=== PATIENT | male | born 1950 | race Caucasian/White ===

== ENCOUNTER 2021-01-08 09:01 | Outpatient (REF) | payer MEDICARE, BC, SELFPAY ==
--- NOTE | ~2021-01-08 | US_ITS ---
EXAMINATION: US RETROPERITONEAL LIMITED (RENAL ONLY). ULTRASOUND RENAL DOPPLER. CLINICAL INFORMATION: Hypertension. COMPARISON: None. TECHNIQUE: Routine grayscale imaging of kidneys is performed. FINDINGS: RIGHT KIDNEY: 11.9 x 4.9 x 4.6 cm (SAG x AP x TRV). The kidney is normal in size, contour, and echogenicity. Renal cortical thickness is normal. There is anechoic cyst midpole laterally measuring 1.0 x 0.8 x 0.7 cm. No additional cyst or solid mass seen. There is no echogenic stone or hydronephrosis. LEFT KIDNEY: 12.8 x 6.0 x 5.7 cm (SAG x AP x TRV). The kidney is normal in size, contour, and echogenicity. Renal cortical thickness is normal. No calculi or focal parenchymal lesions. No hydronephrosis. On renal Doppler exam, RIGHT KIDNEY: Peak systolic velocity proximal segment measures 182 cm/second, mid segment measures 72 cm/second and distal segment measures 73 cm/second. Renal aortic ratio cannot be calculated due to elevated peak systolic velocity in the aorta. Average peak resistive index measures 0.74. LEFT KIDNEY: Peak systolic velocity proximal segment measures 85 cm/second, mid segment measures 47 cm/second and distal segment measures 79 cm/second. Renal aortic ratio cannot be calculated. Average resistive index measures 0.70. Peak systolic velocity of the abdominal aorta measures 132 cm/second. Both renal veins are patent. US/US renal doppler IMPRESSION: Small cyst midpole right kidney. Otherwise both kidneys are unremarkable. Peak systolic velocity right kidney proximal segment is elevated measuring 182 cm/second. The resistive index is normal measuring 0.70. RAR could not be calculated. The findings are equivocal for right renal artery stenosis. Based on renal parameters, there is no left renal artery stenosis.
--- NOTE | ~2021-01-08 | US_ITS ---
EXAMINATION: US RETROPERITONEAL LIMITED (RENAL ONLY). ULTRASOUND RENAL DOPPLER. CLINICAL INFORMATION: Hypertension. COMPARISON: None. TECHNIQUE: Routine grayscale imaging of kidneys is performed. FINDINGS: RIGHT KIDNEY: 11.9 x 4.9 x 4.6 cm (SAG x AP x TRV). The kidney is normal in size, contour, and echogenicity. Renal cortical thickness is normal. There is anechoic cyst midpole laterally measuring 1.0 x 0.8 x 0.7 cm. No additional cyst or solid mass seen. There is no echogenic stone or hydronephrosis. LEFT KIDNEY: 12.8 x 6.0 x 5.7 cm (SAG x AP x TRV). The kidney is normal in size, contour, and echogenicity. Renal cortical thickness is normal. No calculi or focal parenchymal lesions. No hydronephrosis. On renal Doppler exam, RIGHT KIDNEY: Peak systolic velocity proximal segment measures 182 cm/second, mid segment measures 72 cm/second and distal segment measures 73 cm/second. Renal aortic ratio cannot be calculated due to elevated peak systolic velocity in the aorta. Average peak resistive index measures 0.74. LEFT KIDNEY: Peak systolic velocity proximal segment measures 85 cm/second, mid segment measures 47 cm/second and distal segment measures 79 cm/second. Renal aortic ratio cannot be calculated. Average resistive index measures 0.70. Peak systolic velocity of the abdominal aorta measures 132 cm/second. Both renal veins are patent. US/US renal BI IMPRESSION: Small cyst midpole right kidney. Otherwise both kidneys are unremarkable. Peak systolic velocity right kidney proximal segment is elevated measuring 182 cm/second. The resistive index is normal measuring 0.70. RAR could not be calculated. The findings are equivocal for right renal artery stenosis. Based on renal parameters, there is no left renal artery stenosis.
== END 2021-01-08 09:02 | disposition home or self-care (01) ==
LOC: HO.US 09:01
PROVIDERS: PCP Internal Medicine; Visit Provider Internal Medicine Nephrology
DX: I10 Essential (primary) hypertension (principal)
CPT/HCPCS: 76775; 93975

== ENCOUNTER 2021-04-16 07:58 | Day surgery (SDC) | payer MEDICARE, BC, SELFPAY ==
[2021-04-11 10:49] VITALS: BMI 29.7
--- NOTE | 2021-04-11 14:51 | MHC.SHP ---
Pre-Procedural Eval Section A The patient is an INPATIENT: No The History & Physical has been completed within 30 days and I have reviewed it.: Yes Section B Chief Complaint: Cataract Right Eye Allergies: Allergies Allergy/AdvReac Type Severity Reaction Status Date / Time amlodipine Allergy Intermediate tinnitis Verified 04/11/21 11:00 chlorthalidone AdvReac Intermediate dehydration Verified 04/11/21 11:00 erythromycin base AdvReac Intermediate Gastrointestinal Verified 04/11/21 11:00 Upset lisinopril AdvReac Intermediate Cough Verified 04/11/21 11:00 Plan Diagnosis/Plan: Unchanged I have reviewed the history and physical and performed a pertinent physical examination on my patient. No changes have occurred unless specified.
--- NOTE | 2021-04-13 09:23 | P.CONAN_ITS ---
Documented by User: Anushka Ansariney 04/13/21 09:27 HPI - Anesthesia Eval Consult details Narrative: 70yo M for Right Cataract Extraction IOL Insertion PCP cleared No prev cataract on record PMFSH Past Medical History Medical History Arthritis COVID-19 vaccine administered Depression Diabetes Elevated cholesterol GERD (gastroesophageal reflux disease) HTN (hypertension) Hx of aortic valve stenosis Sleep apnea Surgical History Surgical History H/O colonoscopy History of carpal tunnel release History of esophagogastroduodenoscopy (EGD) Social History Social History Are you a primary animal care worker to a significant other at home: No Do you presently have visiting nurse or other home services: No Alcohol intake: current Alcohol intake frequency: 0-2 drinks per day Alcohol type: hard liquor Tobacco use type: Cigar Smoked in Last 30 Days: Yes Use of substances other than those prescribed or required for medical reasons: No Have you been hit, kicked, punched, or otherwise hurt by someone within the past year? If so, by whom?: No Are you DNR?: No Advance Directives Information Provided: No Recently lost weight without trying: No Eating poorly because of decreased appetite: No Nutrition Risks: No Nutritional Risk Poor oral hygiene: Yes (upper partial/lower broken teeth) Meds Allergies Allergy/AdvReac Type Severity Reaction Status Date / Time amlodipine Allergy Intermediate tinnitis Verified 04/16/21 08:53 chlorthalidone AdvReac Intermediate dehydration Verified 04/16/21 08:53 erythromycin base AdvReac Intermediate Gastrointestinal Verified 04/16/21 08:53 Upset lisinopril AdvReac Intermediate Cough Verified 04/16/21 08:53 Home Medications Medication Instructions Recorded Confirmed Last Taken Type allopurinol 1 tab PO DAILY 04/11/21 04/11/21 Unknown History aspirin [Aspirin Low-Strength] 81 mg PO DAILY 04/11/21 04/11/21 Unknown History carvedilol 1 tab PO BID 04/11/21 04/11/21 04/16/21 07:00 History cetirizine 1 tab PO BID 04/11/21 04/11/21 Unknown History clonidine HCl 2 tab PO BID 04/11/21 04/11/2104/16/21 07:00 History fluticasone propionate 2 spray INTRANASAL DAILY 04/11/21 04/11/21 Unknown History hydralazine 75 mg PO TID 04/11/21 04/11/21 04/16/21 07:00 History losartan 1 tab PO DAILY 04/11/21 04/11/21 04/16/21 07:00 History metformin 1 tab PO BID 04/11/21 04/11/21 Unknown History omeprazole 20 mg PO BEDTIME 04/11/21 04/11/21 Unknown History pravastatin 1 tab PO DAILY 04/11/21 04/11/21 Unknown History tamsulosin 1 cap PO QPM 04/11/21 04/11/21 Unknown History thiamine mononitrate (vit B1) 1 tab PO DAILY 04/11/21 04/11/21 Unknown History [Vitamin B-1 (mononitrate)] Exam Exam Date and Time: April 13, [id number] Height,Weight and Vital Signs: Height 5 ft 10.5 in Weight 95.254 kg Assessment and Plan Assessment Anesthesia Assessment: Chart Reviewed Documented by User: Gume Bonilla 04/16/21 09:16 [facility] Past Medical History Medical History Arthritis COVID-19 vaccine administered Depression Diabetes Elevated cholesterol GERD (gastroesophageal reflux disease) HTN (hypertension) Hx of aortic valve stenosis Sleep apnea Surgical History Surgical History H/O colonoscopy History of carpal tunnel release History of esophagogastroduodenoscopy (EGD) Social History Social History Are you a primary animal care worker to a significant other at home: No Do you presently have visiting nurse or other home services: No Alcohol intake: current Alcohol intake frequency: 0-2 drinks per day Alcohol type: hard liquor Tobacco use type: Cigar Smoked in Last 30 Days: Yes Use of substances other than those prescribed or required for medical reasons: No Have you been hit, kicked, punched, or otherwise hurt by someone within the past year? If so, by whom?: No Are you DNR?: No Advance Directives Information Provided: No Recently lost weight without trying: No Eating poorly because of decreased appetite: No Nutrition Risks: No Nutritional Risk Poor oral hygiene: Yes (upper partial/lower broken teeth) Meds Allergies Allergy/AdvReac Type Severity Reaction Status Date / Time amlodipine Allergy Intermediate tinnitis Verified 04/16/21 08:53 chlorthalidone AdvReac Intermediate dehydration Verified 04/16/21 08:53 erythromycin base AdvReac Intermediate Gastrointestinal Verified 04/16/21 08:53 Upset lisinopril AdvReac Intermediate Cough Verified 04/16/21 08:53 Home Medications Medication Instructions Recorded Confirmed Last Taken Type allopurinol 1 tab PO DAILY 04/11/21 04/11/21 Unknown History aspirin [Aspirin Low-Strength] 81 mg PO DAILY 04/11/21 04/11/21 Unknown History carvedilol 1 tab PO BID 04/11/21 04/11/21 04/16/21 07:00 History cetirizine 1 tab PO BID 04/11/21 04/11/21 Unknown History clonidine HCl 2 tab PO BID 04/11/21 04/11/21 04/16/21 07:00 History fluticasone propionate 2 spray INTRANASAL DAILY 04/11/21 04/11/21 Unknown History hydralazine 75 mg PO TID 04/11/21 04/11/21 04/16/21 07:00 History losartan 1 tab PO DAILY 04/11/21 04/11/21 04/16/21 07:00 History metformin 1 tab PO BID 04/11/21 04/11/21 Unknown History omeprazole 20 mg PO BEDTIME 04/11/21 04/11/21 Unknown History pravastatin 1 tab PO DAILY 04/11/21 04/11/21 Unknown History tamsulosin 1 cap PO QPM 04/11/21 04/11/21 Unknown History thiamine mononitrate (vit B1) 1 tab PO DAILY 04/11/21 04/11/21 Unknown History [Vitamin B-1 (mononitrate)] Exam Airway Mallampati Class: III TM Dist: >3cm Neck ROM: Full Denture: Upper Loose/Missing/Broken Teeth: Yes (multiple broken teeth, very poor dentition) Heart: [id number] Lungs: cta b/l Assessment and Plan Assessment Anesthesia Assessment: Anesthesia Plan Discussed, PAT Visit and Chart Reviewed Final Anesthetic Review NPO: Yes ASA Class: III Final Preanesthetic Review: No Changes in Pt Med Stat, Meds/Allgs Chart Reviewed, Consent Obtained/Reviewed and Anes Risks/Benef Reviewed Patient Risk: Intermediate Procedure Risk: Low Assessment/Block/Sedation in SS: Assess/Block/Sedation-SS Anesthetic Plan Anesthetic Plan: MAC: and Agree w/ Assess. and Plan Disposition: Standard PACU
[2021-04-16 08:53] VITALS: BP 119/55; PULSE 45; RESP 18; TEMP 36.4; O2SAT 98
[2021-04-16 09:01] LABS: Glucose, Whole Blood 115 mg/dL (60-115)
[2021-04-16] MEDS: Lactated Ringers 500 ML 50 ML IV (09:07)
[2021-04-16] MEDS: Tetracaine HCl/PF 0.5% Oph Sol 4 ML DROPS 1 DROP EYE-RIGHT (09:08)
[2021-04-16] MEDS: Tropicamide 1 % Ophth Sol 3 ML BTL 1 DROP EYE-RIGHT ×3 (09:11→09:17)
[2021-04-16] MEDS: Phenylephrine HCL 2.5% Oph SoL 2 ML BOTTLE 1 DROP EYE-RIGHT ×3 (09:13→09:21)
--- NOTE | 2021-04-16 09:48 | HO.PNOPHT ---
Ophthalmology Procedure Procedure Date of Service: 04/16/21 Ophthalmology Viscoelastic: Healmonika Riverat Dual Pack Pro Ophthalmology Lenses: TECLUSI [id number] (19) Procedure Notes: PREOPERATIVE DIAGNOSIS: Decreased visual acuity right eye secondary to cataract POSTOPERATIVE DIAGNOSIS: Same PROCEDURE: Right cataract extraction with intraocular lens insertion SURGEON: Yfn Young M.D. ANESTHESIA: Topical/MAC ESTIMATED BLOOD LOSS: None COMPLICATIONS: None After obtaining informed consent, the patient was brought to the operating room suite and placed in the supine position. After adequate sedation per anesthesia, topical drops of Tetracaine were given to the right eye. The eye was then prepped and draped in the usual sterile fashion. The operating room microscope was then positioned over the operative eye and a lid speculum placed. A paracentesis was created. Viscoelastic was then instilled into the anterior chamber. A three plane incision was then created temporally, utilizing a 2.85 mm keratome. Capsulotomy forceps were then utilized to create a circular tear capsulotomy. Hydrodissection and hydrodelineation were carried out until adequate mobilization of the nucleus occurred. Phacoemulsification was then utilized to remove the dense central nucleus followed by removal of the cortical material utilizing the automated aspiration irrigation unit. Viscoelastic was instilled into the posterior capsular bag followed by placement of a posterior chamber intraocular lens without difficulty. The residual Viscoelastic was then removed utilizing the automated IA machine. The wound was checked and found to be watertight. The patient tolerated the procedure well and the lid speculum was removed. Intracameral injection of Vigamox 0.1 mL followed by a subtenon injection of Kenalog-40 0.2 mL were administered. The patient will be seen in the a.m.
[2021-04-16 10:10] VITALS: BP 175/69; PULSE 50; RESP 16; TEMP 36.1; O2SAT 97
== END 2021-04-16 10:18 | disposition home or self-care (01) ==
PROVIDERS: PCP Internal Medicine; Visit Provider Ophthalmology
PROC: (CPT 66985; principal; 2021-04-16 10:30)
DX: H25.11 Age-related nuclear cataract, right eye (principal); E11.9 Type 2 diabetes mellitus without complications; I10 Essential (primary) hypertension; Z79.84 Long term (current) use of oral hypoglycemic drugs; Z79.899 Other long term (current) drug therapy; Z88.8 Allergy status to other drugs, medicaments and biological substances
CPT/HCPCS: 66984; 82947; J2250; J3010; J3300; V2632

== ENCOUNTER 2021-04-30 09:54 | Day surgery (SDC) | payer MEDICARE, BC, SELFPAY ==
[2021-04-11 11:05] VITALS: BMI 29.7
--- NOTE | 2021-04-26 08:42 | MHC.SHP ---
Pre-Procedural Eval Section A Date of Service: 04/26/21 The patient is an INPATIENT: No The History & Physical has been completed within 30 days and I have reviewed it.: Yes Section B Chief Complaint: Cataract Left Eye Allergies: Allergies Allergy/AdvReac Type Severity Reaction Status Date / Time amlodipine Allergy Intermediate tinnitis Verified 04/16/21 08:53 chlorthalidone AdvReac Intermediate dehydration Verified 04/16/21 08:53 erythromycin base AdvReac Intermediate Gastrointestinal Verified 04/16/21 08:53 Upset lisinopril AdvReac Intermediate Cough Verified 04/16/21 08:53 Plan Diagnosis/Plan: Unchanged I have reviewed the history and physical and performed a pertinent physical examination on my patient. No changes have occurred unless specified.
[2021-04-30 11:56] VITALS: BP 176/71; PULSE 52; RESP 16; TEMP 36.6; O2SAT 97
--- NOTE | 2021-04-30 11:59 | HO.ANESPROP2 ---
[facility] Past Medical History Medical History Arthritis COVID-19 vaccine administered Depression Diabetes Elevated cholesterol GERD (gastroesophageal reflux disease) HTN (hypertension) Hx of aortic valve stenosis Sleep apnea Surgical History Surgical History H/O colonoscopy History of carpal tunnel release History of esophagogastroduodenoscopy (EGD) Social History Social History Are you a primary child care supervisor to a significant other at home: No Do you presently have visiting nurse or other home services: No Alcohol intake: current Alcohol intake frequency: 0-2 drinks per day Alcohol type: hard liquor Tobacco use type: Cigar Use of substances other than those prescribed or required for medical reasons: No Have you been hit, kicked, punched, or otherwise hurt by someone within the past year? If so, by whom?: No Are you DNR?: No Advance Directives Information Provided: No Recently lost weight without trying: No Eating poorly because of decreased appetite: No Nutrition Risks: No Nutritional Risk Poor oral hygiene: Yes (upper partial/lower broken teeth) Meds Allergies Allergy/AdvReac Type Severity Reaction Status Date / Time amlodipine Allergy Intermediate tinnitis Verified 04/16/21 08:53 chlorthalidone AdvReac Intermediate dehydration Verified 04/16/21 08:53 erythromycin base AdvReac Intermediate Gastrointestinal Verified 04/16/21 08:53 Upset lisinopril AdvReac Intermediate Cough Verified 04/16/21 08:53 Active Medications: Current Medications Generic Name Dose Route Start Last Admin Trade Name Freq PRN Reason Stop Dose Admin Povidone Iodine 1 appl 04/26/21 08:15 Povidone Iodine 5 % Ophth Soln 30 Ml Bottle EYE-LEFT PREOP PRN Pre-Op Surgical Implant Prophy Povidone Iodine 1 appl 04/30/21 11:31 Povidone Iodine 5 % Ophth Soln 30 Ml Bottle EYE-LEFT PREOP PRN Pre-Op Surgical Implant Prophy Home Medications Medication Instructions Recorded Confirmed Last Taken Type allopurinol 1 tab PO DAILY 04/11/21 04/11/21 Unknown History aspirin [Aspirin Low-Strength] 81 mg PO DAILY 04/11/21 04/11/21 Unknown History carvedilol 1 tab PO BID 04/11/21 04/11/21 04/30/21 History cetirizine 1 tab PO BID 04/11/21 04/11/21 Unknown History clonidine HCl 2 tab PO BID 04/11/21 04/11/21 04/30/21 History fluticasone propionate 2 spray INTRANASAL DAILY 04/11/21 04/11/21 Unknown History hydralazine 75 mg PO TID 04/11/21 04/11/21 04/30/21 History losartan 1 tab PO DAILY 04/11/21 04/11/21 04/30/21 History metformin 1 tab PO BID 04/11/21 04/11/21 Unknown History omeprazole 20 mg PO BEDTIME 04/11/21 04/11/21 Unknown History pravastatin 1 tab PO DAILY 04/11/21 04/11/21 Unknown History tamsulosin 1 cap PO QPM 04/11/21 04/11/21 Unknown History thiamine mononitrate (vit B1) 1 tab PO DAILY 04/11/21 04/11/21 Unknown History [Vitamin B-1 (mononitrate)] Exam Exam Date and Time: April 30, 2021 1159 Height,Weight and Vital Signs: Height 5 ft 10.5 in Weight 95.254 kg Last Vital Signs Temp 97.8 F 04/30/21 11:56 Pulse 52 04/30/21 11:56 Resp 16 04/30/21 11:56 BP 176/71 H 04/30/21 11:56 Pulse Ox 97 04/30/21 11:56 Airway Mallampati Class: II (Missing multiple teeth, numerous broken) TM Dist: >3cm Neck ROM: Full Heart: rrr Lungs: cta Assessment and Plan Assessment Anesthesia Assessment: Anesthesia Plan Discussed and Chart Reviewed Final Anesthetic Review NPO: Yes (Sip with meds) ASA Class: III Final Preanesthetic Review: No Changes in Pt Med Stat and Consent Obtained/Reviewed Patient Risk: Intermediate Procedure Risk: Intermediate Anesthetic Plan Anesthetic Plan: MAC: Disposition: Standard PACU
[2021-04-30] MEDS: Tetracaine HCl/PF 0.5% Oph Sol 4 ML DROPS 1 DROP EYE-LEFT (12:06)
[2021-04-30 12:07] LABS: Glucose, Whole Blood 110 mg/dL (60-115)
[2021-04-30] MEDS: Tropicamide 1 % Ophth Sol 3 ML BTL 1 DROP EYE-LEFT ×3 (12:07→12:23)
[2021-04-30] MEDS: Phenylephrine HCL 2.5% Oph SoL 2 ML BOTTLE 1 DROP EYE-LEFT ×3 (12:13→12:27)
--- NOTE | 2021-04-30 13:25 | HO.PNOPHT ---
Ophthalmology Procedure Procedure Date of Service: 04/30/21 Ophthalmology Viscoelastic: Healon Duet Dual Pack Pro Ophthalmology Lenses: TECLUIS [id number] (19) Procedure Notes: PREOPERATIVE DIAGNOSIS: Decreased visual acuity left eye secondary to cataract POSTOPERATIVE DIAGNOSIS: Same PROCEDURE: Left cataract extraction with intraocular lens insertion SURGEON: Yfn Young M.D. ANESTHESIA: Topical/MAC ESTIMATED BLOOD LOSS: None COMPLICATIONS: None After obtaining informed consent, the patient was brought to the operation room suite and placed in the supine position. After adequate sedation per anesthesia, topical drops of Tetracaine were given to the left eye. The eye was then prepped and draped in the usual sterile fashion. The operating room microscope was then positioned over the operative eye and a lid speculum placed. A paracentesis was created. Viscoelastic was then instilled into the anterior chamber. A three plane incision was then created temporally, utilizing a 2.85 mm keratome. Capsulotomy forceps were then utilized to create a circular tear capsulotomy. Hydrodissection and hydrodelineation were carried out until adequate mobilization of the nucleus occurred. Phacoemulsification was then utilized to remove the dense central nucleus followed by removal of the cortical material utilizing the automated aspiration irrigation unit. Viscoat elastic was instilled into the posterior capsular bag followed by placement of a posterior chamber intraocular lens without difficulty. The residual Viscoat elastic was then removed utilizing the automated IA machine. The wound was check and found to be watertight. The patient tolerated the procedure well and the lid speculum was removed. Intracameral injection of Vigamox 0.1 mL followed by a subtenon injection of Kenalog-40 0.2 mL were administered. The patient will be seen in the a.m.
[2021-04-30 13:51] VITALS: BP 174/69; PULSE 62; RESP 16; TEMP 36.2; O2SAT 97
== END 2021-04-30 14:05 | disposition home or self-care (01) ==
PROVIDERS: PCP Internal Medicine; Visit Provider Ophthalmology
PROC: (CPT 66985; principal; 2021-04-30 12:40)
DX: H25.12 Age-related nuclear cataract, left eye (principal); H52.4 Presbyopia; I10 Essential (primary) hypertension; G47.33 Obstructive sleep apnea (adult) (pediatric); E11.9 Type 2 diabetes mellitus without complications; Z79.84 Long term (current) use of oral hypoglycemic drugs; Z79.82 Long term (current) use of aspirin; Z99.89 Dependence on other enabling machines and devices; Z79.899 Other long term (current) drug therapy; Z88.8 Allergy status to other drugs, medicaments and biological substances
CPT/HCPCS: 66984; 82947; J2250; J3010; J3300; V2632

== ENCOUNTER → 2022-09-05 08:48 | Outpatient (BNVA) | payer MEDICARE, BC, SELFPAY ==
[2022-01-22 07:26] VITALS: BP 118/64; BP 152/70; BP 180/92; BMI 31.6
== END ==
PROVIDERS: PCP Internal Medicine; Referring Provider Internal Medicine; Visit Provider Physician Assistant
DX: R13.10 Dysphagia, unspecified (principal); G47.33 Obstructive sleep apnea (adult) (pediatric); Z79.01 Long term (current) use of anticoagulants; Z86.010 Personal history of colon polyps
CPT/HCPCS: 99202

== ENCOUNTER 2023-01-16 08:35 | Day surgery (SDC) | payer MEDICARE, BC, SELFPAY ==
[2022-01-22 07:26] VITALS: BP 118/64; BP 152/70; BP 180/92; BMI 31.6
--- NOTE | 2023-01-15 13:27 | HO.ANESPROP2 ---
Documented by User: Anushka Loredo NP 01/15/23 14:03 HPI - Anesthesia Eval Consult details Narrative: 72yo M for Upper Endoscopy and Colonoscopy Recent eval by cardiology. Some w/u pending, but ok to have colonoscopy and hold plavix. To remain on ASA PMFSH Active Problems Active Problems: All Active Problems (Updated 01/13/23 @ 11:37 by Edith Love, RN) History of colon polyps (Acute) care home current use of anticoagulant (Acute) Dysphagia (Acute) KATI treated with BiPAP (Acute) Past Medical History Medical History (Updated 01/13/23 @ 11:37 by Edith Love, RN) Arthritis CAD (coronary artery disease) Carotid stenosis CKD (chronic kidney disease), stage III COVID-19 vaccine administered Depression Diabetes Elevated cholesterol GERD (gastroesophageal reflux disease) HTN (hypertension) Hx of aortic valve stenosis On beta jay at home KATI treated with BiPAP Sleep apnea Surgical History Surgical History (Updated 01/13/23 @ 11:24 by Edith Love, LONNIE) H/O colonoscopy History of bilateral cataract extraction History of carpal tunnel release History of esophagogastroduodenoscopy (EGD) Hx of five vessel coronary artery bypass Status post cardiac revascularization with bypass aortocoronary anastomosis of five coronary vessels Social History Social History (Updated 09/05/22 @ 09:21 by Enedina Green PA-C) Household Members Other:: lives with Are you a primary healthcare business analyst to a significant other at home: No Do you presently have visiting nurse or other home services: No Alcohol intake: current Patient Tobacco Use Status: Former Tobacco user Tobacco use type: Cigar Current occupational status: retired Current occupation: [employer] Meds Allergies Allergy/AdvReac Type Severity Reaction Status Date / Time amlodipine Allergy Intermediate tinnitis Verified 01/13/23 11:03 chlorthalidone AdvReac Intermediate dehydration Verified 01/13/23 11:03 erythromycin base AdvReac Intermediate Gastrointestinal Verified 01/13/23 11:03 Upset lisinopril AdvReac Intermediate Cough Verified 01/13/23 11:03 Home Medications Medication Instructions Recorded Confirmed Last Taken Type allopurinol 300 mg tablet 1 tab PO DAILY 04/11/21 01/13/23 Unknown History aspirin 81 mg tablet,delayed 81 mg PO DAILY 04/11/21 04/11/21 01/14/23 History release cetirizine 10 mg tablet 1 tab PO BID 04/11/21 01/13/23 Unknown History fluticasone propionate 50 2 spray intranasal DAILY 04/11/21 01/13/23 Unknown History mcg/actuation nasal spray,suspension hydralazine 50 mg tablet 75 mg PO TID 04/11/21 01/13/23 04/30/21 History losartan 100 mg tablet 1 tab PO DAILY 04/11/21 01/13/23 04/30/21 History metformin 1,000 mg tablet 1 tab PO BID 04/11/21 01/13/23 Unknown History omeprazole 20 mg tablet,delayed 20 mg PO BEDTIME 04/11/21 01/13/23 Unknown History release pravastatin 80 mg tablet 1 tab PO DAILY 04/11/21 01/13/23 Unknown History tamsulosin 0.4 mg capsule 1 cap PO QPM 04/11/21 01/13/23 Unknown History thiamine mononitrate (vit B1) 100 1 tab PO DAILY 04/11/21 01/13/23 Unknown History mg tablet (Vitamin B-1 (mononitrate)) clopidogrel 75 mg tablet 75 mg PO DAILY 09/05/22 01/13/23 01/14/23 History glipizide 10 mg tablet, extended 10 mg PO DAILY 09/05/22 01/13/23 Unknown History release 24 hr metoprolol tartrate 25 mg tablet 25 mg PO BID 09/05/22 01/13/23 01/16/23 History triamcinolone acetonide 0.1 % 1 appl topical BID-TID 09/05/22 01/13/23 Unknown History topical cream Exam Exam Date and Time: January 15, 2023 1327 Narrative Narrative: EKG 01/2023 SA @ 62 ECHO 2020 LVEF 60-65% Mild Assessment and Plan Assessment Anesthesia Assessment: Chart Reviewed Documented by User: Glenn Theodore MD 01/16/23 17:54 HPI - Anesthesia Eval Consult details Narrative: 72yo M for Upper Endoscopy and Colonoscopy Recent eval by cardiology. Some w/u pending, but ok to have colonoscopy and hold plavix. To remain on ASA [facility] Past Medical History Medical History (Updated 01/13/23 @ 11:37 by Edith Love, RN) Arthritis CAD (coronary artery disease) Carotid stenosis CKD (chronic kidney disease), stage III COVID-19 vaccine administered Depression Diabetes Elevated cholesterol GERD (gastroesophageal reflux disease) HTN (hypertension) Hx of aortic valve stenosis On beta jay at home KATI treated with BiPAP Sleep apnea Functional capacity: independent ambulation Family History Family history of problems with anesthesia: No Surgical History Surgical History (Updated 01/13/23 @ 11:24 by Edith Love, RN) H/O colonoscopy History of bilateral cataract extraction History of carpal tunnel release History of esophagogastroduodenoscopy (EGD) Hx of five vessel coronary artery bypass Status post cardiac revascularization with bypass aortocoronary anastomosis of five coronary vessels History of Problems with Anesthesia: No Social History Social History (Updated 09/05/22 @ 09:21 by Enedina Green PA-C) Household Members Other:: lives with Are you a primary healthcare business analyst to a significant other at home: No Do you presently have visiting nurse or other home services: No Alcohol intake: current Patient Tobacco Use Status: Former Tobacco user Tobacco use type: Cigar Current occupational status: retired Current occupation: [employer] Allergies Allergy/AdvReac Type Severity Reaction Status Date / Time amlodipine Allergy Intermediate tinnitis Verified 01/13/23 11:03 chlorthalidone AdvReac Intermediate dehydration Verified 01/13/23 11:03 erythromycin base AdvReac Intermediate Gastrointestinal Verified 01/13/23 11:03 Upset lisinopril AdvReac Intermediate Cough Verified 01/13/23 11:03 Home Medications Medication Instructions Recorded Confirmed Last Taken Type allopurinol 300 mg tablet 1 tab PO DAILY 04/11/21 01/13/23 Unknown History aspirin 81 mg tablet,delayed 81 mg PO DAILY 04/11/21 04/11/21 01/14/23 History release cetirizine 10 mg tablet 1 tab PO BID 04/11/21 01/13/23 Unknown History fluticasone propionate 50 2 spray intranasal DAILY 04/11/21 01/13/23 Unknown History mcg/actuation nasal spray,suspension hydralazine 50 mg tablet 75 mg PO TID 04/11/21 01/13/23 04/30/21 History losartan 100 mg tablet 1 tab PO DAILY 04/11/21 01/13/23 04/30/21 History metformin 1,000 mg tablet 1 tab PO BID 04/11/21 01/13/23 Unknown History omeprazole 20 mg tablet,delayed 20 mg PO BEDTIME 04/11/21 01/13/23 Unknown History release pravastatin 80 mg tablet 1 tab PO DAILY 04/11/21 01/13/23 Unknown History tamsulosin 0.4 mg capsule 1 cap PO QPM 04/11/21 01/13/23 Unknown History thiamine mononitrate (vit B1) 100 1 tab PO DAILY 04/11/21 01/13/23 Unknown History mg tablet (Vitamin B-1 (mononitrate)) clopidogrel 75 mg tablet 75 mg PO DAILY 09/05/22 01/13/23 01/14/23 History glipizide 10 mg tablet, extended 10 mg PO DAILY 09/05/22 01/13/23 Unknown History release 24 hr metoprolol tartrate 25 mg tablet 25 mg PO BID 09/05/22 01/13/23 01/16/23 History triamcinolone acetonide 0.1 % 1 appl topical BID-TID 09/05/22 01/13/23 Unknown History topical cream Exam Airway Mallampati Class: III TM Dist: >3cm Neck ROM: Full Loose/Missing/Broken Teeth: Yes Heart: S1,S2 Lungs: b/l breath sounds Assessment and Plan Assessment Anesthesia Assessment: Anesthesia Plan Discussed Final Anesthetic Review Family History of Problems with Anesthesia: No History of Problems with Anesthesia: No NPO: Yes ASA Class: III Final Preanesthetic Review: Meds/Allgs Chart Reviewed, Consent Obtained/Reviewed and Anes Risks/Benef Reviewed Patient Risk: Intermediate Procedure Risk: Intermediate Anesthetic Plan Anesthetic Plan: MAC: Disposition: Standard PACU
[2023-01-16 09:11] VITALS: BMI 71.1
[2023-01-16 09:25] VITALS: BP 164/86; PULSE 71; RESP 18; TEMP 36.3; O2SAT 96
[2023-01-16] MEDS: Lactated Ringers 1,000 ML 100 ML IVCONT (09:28)
[2023-01-16 09:31] VITALS: BMI 32.3
[2023-01-16 09:31] LABS: Glucose, Whole Blood 143 mg/dL (60-115)
[2023-01-16 09:41] LABS: Hemoglobin 14.9 g/dl (14.0-18.0); Mean Corpuscular HGB Conc 33.9 g/dl (31.0-36.0); Mean Corpuscular Hemoglobin 31.5 pg (27.0-33.0); Mean Platelet Volume 9.9 fL (9.4-12.4); Platelet Count 205 X10*3/uL (160-400); Red Blood Count 4.73 X10*6/uL (4.60-5.80); Red Cell Distribution Width 14.4 % (11.0-16.0); White Blood Count 7.3 X10*3/uL (4.8-10.8)
--- NOTE | 2023-01-16 09:54 | MHC.SHP ---
Pre-Procedural Eval Section A Date of Service: 01/16/23 Section B Chief Complaint: screening,dysphagia Relevant Family History (Specify if Yes): No Relevant Social History: Tobacco Use (cigars) Present Medications: see Short Stay Collaborative assessment Medical History: Significant History (Arthritis CAD (coronary artery disease) Carotid stenosis CKD (chronic kidney disease), stage III COVID-19 vaccine administered Depression Diabetes Elevated cholesterol GERD (gastroesophageal reflux disease) HTN (hypertension) Hx of aortic valve stenosis On beta jay at home KATI treated with BiPAP) History of Previous Operations: Relevant previous surgery/procedure and date(s) ( H/O colonoscopy History of carpal tunnel release History of esophagogastroduodenoscopy (EGD)) Allergies: Allergies Allergy/AdvReac Type Severity Reaction Status Date / Time amlodipine Allergy Intermediate tinnitis Verified 01/13/23 11:03 chlorthalidone AdvReac Intermediate dehydration Verified 01/13/23 11:03 erythromycin base AdvReac Intermediate Gastrointestinal Verified 01/13/23 11:03 Upset lisinopril AdvReac Intermediate Cough Verified 01/13/23 11:03 Review of Systems Sugical H&P ROS: Negative: Constitution, Cardiovascular, Respiratory, Neurological, Psychiatric, Hem-Onc, Allergic/Immunologic, Gastrointestinal, Genitourinary, Musculoskeletal, Integumentary, Endocrine and Eyes/Ears/Nose/Throat Exam Surgical H&P Exam: Normal: HEENT, Normal: Heart, Normal: Lungs, Normal: Extremities, Normal: Abdomen, Normal: Skin and Normal: Neurological Plan Diagnosis/Plan: Unchanged I have reviewed the history and physical and performed a pertinent physical examination on my patient. No changes have occurred unless specified. Time Spent With Patient Time: Total time managing care of this patient today ____ minutes.
--- NOTE | 2023-01-16 09:55 | P.OP_ITS ---
Operative Note Operative Note Date of Service: 01/16/23 Narrative: Operative Information Procedure Description: EGD, Colonoscopy Indication: dysphagia, screening Anesthesia: MAC FLEXIBLE TRANSORAL UPPER GASTROINTESTINAL ENDOSCOPY AND COLONOSCOPY PROCEDURE NOTE UPPER ENDOSCOPY Consent: Indications for the procedure and potential complications of bleeding, perforation, reaction to medications and missed diagnosis were discussed with the patient and informed consent was obtained. Instrument: Olympus GIF H 190 J mid size upper endoscope Monitoring: Vital signs and clinical assessment, continuous EKG monitoring, Pulse oximetry, Carbon Dioxide monitoring and blood pressure monitoring were done throughout the procedure. Procedure: The patient was placed in the left lateral decubitis position and pre-procedure medications were administered and a bite block was placed. The endoscope was inserted into the mouth and advanced under direct vision to the third part of duodenum. A careful inspection was made as the upper endoscope was withdrawn including a retroflexed examination of the proximal stomach; Findings and interventions are described below. Findings: Larynx:normal Esophagus: GE junction at 40 cm, diaphragm hiatus at 40 cm, islands of salmon pink tissue, bx taken to r/o barretts Stomach: Patchy erythema . Biopsies were obtained. Grade 2 flap valve on retroflexed examination of the cardia. Duodenum: Normal bulb and descending duodenum, Intervention: Biopsies as noted above COLONOSCOPY Instrument: Olympus variable stiffness pediatric scope 190L Colonoscopy Monitoring: Vital signs and clinical assessment, continuous EKG monitoring, Pulse oximetry, Carbon Dioxide monitoring and blood pressure monitoring were done throughout the procedure. Colon withdrawal time was 34 minutes. Procedure: The patient was placed in the left lateral decubitis position and pre-procedure medications were administered. After a digital rectal examination of the ano-rectum, the video colonoscope was inserted into the rectum and advanced through the colon to the cecum/TI. The colonoscope was slowly withdrawn in a retrograde panoramic fashion and the colon mucosa was carefully examined including a retroflexed view of the rectum. Findings and interventions are described below. Procedure Difficulty:moderate due to looping, had to remove the wedge and lie him flatter which helped Findings: Terminal Ileum-not intubated Cecum: x 2 sessile polyps 10-13 mm removed with cold snare and 6-8 mm sessile polyp removed with cold forceps Ascending Colon: x2 sessile polyps 10-11 mm removed with cold snare Transverse Colon -normal Descending Colon: x8 sessile polyps ranging from 8-14 mm removed with cold snare with one area clipped for hemostasis Sigmoid Colon: moderate severe diverticulosis with semi pedunculated polyp 14-16 mm removed with cold snare and then one clip applied for hemostasis Rectum: Retroflexion with small internal hemorrhoids, grade I Anorectum - normal Colon preparation: [place] Bowel Preparation Scale Right colon; 2 Transverse colon: 2 Left colon; 2 (0 = Unprepared colon segment with mucosa not seen due to solid stool that c annot be cleared. 1 = Portion of mucosa of the colon segment seen, but other areas of the colon segment not well seen due to staining, residual stool and/or opaque liquid. 2 = Minor amount of residual staining, small fragments of stool and/or opaque liquid, but mucosa of colon segment seen well. 3 = Entire mucosa of colon segment seen well with no residual staining, small fragments of stool or opaque liquid) Impression and Post Procedure Diagnosis: Endoscopy Findings: gastritis possible barretts Colonoscopy Findings: polyps internal hemorrhoids diverticular disease Plan: Await Pathology results Repeat Colonoscopy in 6-12 months or earlier if clinically indicated High fiber diet leaflet avoid straining at stool, epsom salts and sitz bath, anusol supps or cream if barretts pos then repeat EGD in 3-5 yrs Above findings were reviewed with the patient and relevant handouts were provided if indicated.
[2023-01-16 10:52] LABS: Anion Gap 16 (12-20); Blood Urea Nitrogen 16 mg/dL (9-16); Calcium 9.4 mg/dL (8.4-10.2); Carbon Dioxide 24 mmol/L (22-29); Chloride 104 mmol/L (96-108); Estimated Glomerular Filt Rate 44; Glucose Fasting 121 mg/dL (60-99); Sodium 139 mmol/L (135-145)
[2023-01-16 11:12] VITALS: BP 124/41; PULSE 57; RESP 20; TEMP 36.2; O2SAT 95
[2023-01-16 11:27] VITALS: BP 141/57; PULSE 59; RESP 18; TEMP 36.2; O2SAT 98
[2023-01-16 11:38] VITALS: BP 139/54; PULSE 60; RESP 17; TEMP 36.2; O2SAT 98
== END 2023-01-16 12:07 ==
LOC: HO.SSS 08:35
PROVIDERS: Nurse Practitioner; PCP Family Medicine; Visit Provider Internal Medicine Gastroenterology
PROC: (CPT 45385; principal; 2023-01-16 09:40)
DX: Z12.11 Encounter for screening for malignant neoplasm of colon (principal); D12.0 Benign neoplasm of cecum; D12.2 Benign neoplasm of ascending colon; D12.4 Benign neoplasm of descending colon; D12.5 Benign neoplasm of sigmoid colon; K57.30 Diverticulosis of large intestine without perforation or abscess without bleeding; K64.0 First degree hemorrhoids; R13.10 Dysphagia, unspecified; K29.50 Unspecified chronic gastritis without bleeding; K21.9 Gastro-esophageal reflux disease without esophagitis; K44.9 Diaphragmatic hernia without obstruction or gangrene; G47.33 Obstructive sleep apnea (adult) (pediatric); I25.10 Atherosclerotic heart disease of native coronary artery without angina pectoris; Z95.1 Presence of aortocoronary bypass graft; I65.29 Occlusion and stenosis of unspecified carotid artery; I10 Essential (primary) hypertension; E78.00 Pure hypercholesterolemia, unspecified; I12.9 Hypertensive chronic kidney disease with stage 1 through stage 4 chronic kidney disease, or unspecified chronic kidney disease; E11.22 Type 2 diabetes mellitus with diabetic chronic kidney disease; N18.30 Chronic kidney disease, stage 3 unspecified; Z79.84 Long term (current) use of oral hypoglycemic drugs; Z79.82 Long term (current) use of aspirin; Z79.899 Other long term (current) drug therapy; Z99.89 Dependence on other enabling machines and devices; Z88.1 Allergy status to other antibiotic agents; Z88.8 Allergy status to other drugs, medicaments and biological substances; Z87.891 Personal history of nicotine dependence
CPT/HCPCS: 45385; 45380; 43239; 36415; 80048; 82947; 85027; 88305; 88342; J2250; J3010

== ENCOUNTER → 2023-01-30 10:00 | Outpatient (BNVA) | payer MEDICARE, BC, SELFPAY ==
[2022-01-22 07:26] VITALS: BP 118/64; BP 152/70; BP 180/92; BMI 31.6
== END ==
PROVIDERS: PCP Family Medicine; Visit Provider Physician Assistant
DX: K21.9 Gastro-esophageal reflux disease without esophagitis (principal); Z86.010 Personal history of colon polyps
CPT/HCPCS: Q3014

== ENCOUNTER → 2023-03-03 14:37 | Outpatient (BNVA) | payer MEDICARE, BC, SELFPAY ==
[2022-01-22 07:26] VITALS: BP 118/64; BP 152/70; BP 180/92; BMI 31.6
== END ==
PROVIDERS: PCP Family Medicine; Visit Provider Physician Assistant
DX: Z12.11 Encounter for screening for malignant neoplasm of colon (principal); K21.9 Gastro-esophageal reflux disease without esophagitis; Z86.010 Personal history of colon polyps
CPT/HCPCS: 99212

== ENCOUNTER → 2023-03-05 14:10 | Outpatient (BNVA) | payer MEDICARE, BC, SELFPAY ==
[2022-01-22 07:26] VITALS: BP 118/64; BP 152/70; BP 180/92; BMI 31.6
== END ==
PROVIDERS: PCP Family Medicine; Visit Provider Internal Medicine Gastroenterology

== ENCOUNTER 2023-12-17 14:16 | Outpatient (AMB) | payer MEDICARE, BC, SELFPAY ==
[2022-01-22 07:26] VITALS: BP 118/64; BP 152/70; BP 180/92; BMI 31.6
[2023-12-17 14:18] VITALS: BP 130/60; PULSE 81; O2SAT 96; BMI 33.6
--- NOTE | 2023-12-17 14:18 | HO.NEPHOV ---
HPI HPI Comments History of Present Illness Details I had the delight of seeing Ha in follow-up of his chronic kidney disease. He is known to have vascular disease. In the past he had undergone cardiac surgery. Recently he had to undergo cardiac catheterization and PCI. His blood pressure is better controlled. He does not have any gout attacks. He remains on Plavix. His blood sugar control is reasonable. He is tolerating angiotensin receptor jay. His volume status is optimal on current dose of diuretics. He denies any chest pain, shortness of breath, paroxysmal nocturnal dyspnea, orthopnea, orthostatic symptoms. He tries to avoid nonsteroidal anti-inflammatories. His renal functions have been stable. [facility] Medical History (Updated 12/29/23 @ 20:55 by Braden Gillis MD) On beta jay at home Carotid stenosis CAD (coronary artery disease) CKD (chronic kidney disease), stage III KATI treated with BiPAP COVID-19 vaccine administered Arthritis Diabetes GERD (gastroesophageal reflux disease) Depression Sleep apnea Hx of aortic valve stenosis Elevated cholesterol HTN (hypertension) Surgical History Hx of five vessel coronary artery bypass History of bilateral cataract extraction Status post cardiac revascularization with bypass aortocoronary anastomosis of five coronary vessels History of esophagogastroduodenoscopy (EGD) H/O colonoscopy History of carpal tunnel release Social History Household Members Other:: lives with Are you a primary home care consultant to a significant other at home: No Do you presently have visiting nurse or other home services: No Alcohol intake: current Patient Tobacco Use Status: Former Tobacco user Tobacco use type: Cigar Current occupational status: retired Current occupation: [employer] Vital Signs 12/17/23 14:18 Height 5 ft 10 in Weight 234 lb BMI 33.6 BP 130/60 Blood Pressure Location Rt brachial Position Sitting Pulse 81 Pulse Source Pulse Oximeter Pulse Oximetry (%) 96 Oxygen Delivery Method Room Air Physical Exam Vital Signs: Last Vital Signs Pulse 81 12/17/23 14:18 BP 130/60 12/17/23 14:18 Pulse Ox 96 12/17/23 14:18 Oxygen Delivery Method Room Air 12/17/23 14:18 BMI result Body Mass Index 33.6 Const General: comfortable and no acute distress Orientation/consciousness: patient oriented x3 HEENT Head: Yes normocephalic Mouth: Normal oral and palatal mucosa present Eyes EOM: EOMs intact bilaterally Neck Neck: Yes supple Resp Auscultation: clear to auscultation bilaterally Cardio Jugular venous distension: no JVD Rate: regular rate GI Palpation (GI): Soft to palpation Auscultation: normal bowel sounds General: Yes no CVA tenderness Back/Spine/Pelvis Back: no CVA tenderness Skin General skin exam: no rashes or lesions noted Neuro General: patient oriented x3 and moves all extremities Assessment & Plan Assessment & Plan (1) CKD (chronic kidney disease), stage III: Comment: Foll'd by Dr. Grider Code(s): N18.30 - Chronic kidney disease, stage 3 unspecified Qualifiers: Chronic kidney disease stage 3 subtype: stage 3a (GFR 45-59) Qualified Code(s): N18.31 - Chronic kidney disease, stage 3a (2) HTN (hypertension): Code(s): I10 - Essential (primary) hypertension Qualifiers: Hypertension type: primary hypertension Qualified Code(s): I10 - Essential (primary) hypertension Plan Ha is known to have chronic kidney disease from vascular disease. He is diabetic and hypertensive. He had multiple coronary interventions. He is on statins. He has a great candidate for SGLT2 inhibitor. I plan to initiate the same at the next visit after going over the repeat lab data. He is tolerating angiotensin receptor jay. He avoids NSAIDs. He should maintain low-sodium diet and should lose weight. He is on statins. I did not make any medication changes today. All his and his 's questions were answered. Further management is pending evolving data. Orders: Orders Electrolytes 12/17/23 N18.30 - Chronic kidney disease, stage 3 unspecified, I10 - Essential (primary) hypertension Blood Urea Nitrogen 12/17/23 N18.30 - Chronic kidney disease, stage 3 unspecified, I10 - Essential (primary) hypertension Creatinine 12/17/23 N18.30 - Chronic kidney disease, stage 3 unspecified, I10 - Essential (primary) hypertension Calcium 12/17/23 N18.30 - Chronic kidney disease, stage 3 unspecified, I10 - Essential (primary) hypertension Protein Creatinine Ratio, Ur 12/17/23 N18.30 - Chronic kidney disease, stage 3 unspecified, I10 - Essential (primary) hypertension Coding Level of Care Code Est Pt Level 4 (71868) Diagnoses Stage 3a chronic kidney disease N18.31 Chronic kidney disease stage 3 subtype: stage 3a (GFR 45-59) Primary hypertension I10 Hypertension type: primary hypertension Results Reviewed Nephrology Results: Hgb 14.9 g/dl (14.0-18.0) 01/16/23 WBC 7.3 X10*3/uL (4.8-10.8) 01/16/23 Plt Count 205 X10*3/uL (160-400) 01/16/23 Sodium 139 mmol/L (135-145) 01/16/23 Potassium 5.0 mmol/L (3.3-5.1) 01/16/23 Chloride 104 mmol/L (96-108) 01/16/23 Carbon Dioxide 24 mmol/L (22-29) 01/16/23 BUN 16 mg/dL (9-16) 01/16/23 Creatinine 1.58 mg/dL (0.5-1.4) H 01/16/23 Calcium 9.4 mg/dL (8.4-10.2) 01/16/23
== END 2023-12-17 15:01 | disposition home or self-care (01) ==
LOC: HO.HKA 14:16
PROVIDERS: PCP Family Medicine; Visit Provider Internal Medicine Nephrology
DX: N18.31 Chronic kidney disease, stage 3a (principal); I10 Essential (primary) hypertension
CPT/HCPCS: 99214

== ENCOUNTER → 2023-12-17 14:16 | Outpatient (BNVA) | payer MEDICARE, BC, SELFPAY ==
[2022-01-22 07:26] VITALS: BP 118/64; BP 152/70; BP 180/92; BMI 31.6
== END ==
PROVIDERS: PCP Family Medicine; Visit Provider Internal Medicine Nephrology
DX: I12.9 Hypertensive chronic kidney disease with stage 1 through stage 4 chronic kidney disease, or unspecified chronic kidney disease (principal); N18.31 Chronic kidney disease, stage 3a
CPT/HCPCS: 99212

== ENCOUNTER 2024-03-17 13:46 | Outpatient (AMB) | payer MEDICARE, BC, SELFPAY ==
[2022-01-22 07:26] VITALS: BP 118/64; BP 152/70; BP 180/92; BMI 31.6
[2024-03-17 13:49] VITALS: BP 112/50; PULSE 92; O2SAT 98; BMI 33.0
--- NOTE | 2024-03-17 13:49 | HO.NEPHOV ---
Vital Signs 03/17/24 13:49 Height 5 ft 10 in Weight 230 lb 4 oz BMI 33.0 BP 112/50 L Blood Pressure Location Rt brachial Position Sitting Pulse 92 Pulse Source Pulse Oximeter Pulse Oximetry (%) 98 Oxygen Delivery Method Room Air Intake Visit Reasons: CKD /3 MO FU/ Confirmed Director Life Insurance Required: No Accompanied by: Self / Same As Patient Allergies amlodipine Allergy (Intermediate, Verified 03/17/24 13:51) tinnitis chlorthalidone Adverse Reaction (Intermediate, Verified 03/17/24 13:51) dehydration erythromycin base Adverse Reaction (Intermediate, Verified 03/17/24 13:51) Gastrointestinal Upset lisinopril Adverse Reaction (Intermediate, Verified 03/17/24 13:51) Cough HPI Comments Details: I had the delight of seeing Ha in follow-up of his chronic kidney disease. He is known to have vascular disease. In the past he had undergone cardiac surgery. Recently he had to undergo cardiac catheterization and PCI. His blood pressure is better controlled. He does not have any gout attacks. He remains on Plavix. His blood sugar control is reasonable. He is tolerating angiotensin receptor jay. His volume status is optimal on current dose of diuretics. He denies any chest pain, shortness of breath, paroxysmal nocturnal dyspnea, orthopnea, orthostatic symptoms. He tries to avoid nonsteroidal anti-inflammatories. His renal functions had been stable. [facility] Medical History (Updated 03/17/24 @ 13:57 by Braden Gillis MD) On beta jay at home Carotid stenosis CAD (coronary artery disease) CKD (chronic kidney disease), stage III KATI treated with BiPAP COVID-19 vaccine administered Arthritis Diabetes GERD (gastroesophageal reflux disease) Depression Sleep apnea Hx of aortic valve stenosis Elevated cholesterol HTN (hypertension) Surgical History Hx of five vessel coronary artery bypass History of bilateral cataract extraction Status post cardiac revascularization with bypass aortocoronary anastomosis of five coronary vessels History of esophagogastroduodenoscopy (EGD) H/O colonoscopy History of carpal tunnel release Social History Household Members Other:: lives with Are you a primary primary care nurse practitioner to a significant other at home: No Do you presently have visiting nurse or other home services: No Alcohol intake: current Patient Tobacco Use Status: Former Tobacco user Tobacco use type: Cigar Current occupational status: retired Current occupation: [employer] Physical Exam Vital Signs: Last Vital Signs Pulse 92 03/17/24 13:49 BP 112/50 L 03/17/24 13:49 Pulse Ox 98 03/17/24 13:49 Oxygen Delivery Method Room Air 03/17/24 13:49 BMI result Body Mass Index 33.0 Const General: comfortable and no acute distress Orientation/consciousness: patient oriented x3 HEENT Head: Yes normocephalic Mouth: Normal oral and palatal mucosa present Eyes EOM: EOMs intact bilaterally Neck Neck: Yes supple Resp Auscultation: clear to auscultation bilaterally Cardio Jugular venous distension: no JVD Rate: regular rate GI Palpation (GI): Soft to palpation Auscultation: normal bowel sounds General: Yes no CVA tenderness Back/Spine/Pelvis Back: no CVA tenderness Skin General skin exam: no rashes or lesions noted Neuro General: patient oriented x3 and moves all extremities Assessment & Plan Assessment & Plan (1) CKD (chronic kidney disease), stage III: Code(s): N18.30 - Chronic kidney disease, stage 3 unspecified Category: Medical Qualifiers: Chronic kidney disease stage 3 subtype: stage 3a (GFR 45-59) Qualified Code(s): N18.31 - Chronic kidney disease, stage 3a (2) HTN (hypertension): Code(s): I10 - Essential (primary) hypertension Category: Medical Qualifiers: Hypertension type: primary hypertension Qualified Code(s): I10 - Essential (primary) hypertension Plan Ha is known to have chronic kidney disease from vascular disease. He is diabetic and hypertensive. He had multiple coronary interventions. He is on statins. He has a great candidate for SGLT2 inhibitor. He is tolerating angiotensin receptor jay. He avoids NSAIDs. He should maintain low-sodium diet and should lose weight. He is on statins. I did not make any medication changes today. All his and his 's questions were answered. Further management is pending evolving data. Orders: Orders Creatinine Today I10 - Essential (primary) hypertension, N18.31 - Chronic kidney disease, stage 3a Blood Urea Nitrogen Today I10 - Essential (primary) hypertension, N18.31 - Chronic kidney disease, stage 3a Electrolytes Today I10 - Essential (primary) hypertension, N18.31 - Chronic kidney disease, stage 3a Coding Level of Care Code Est Pt Level 4 (52237) Diagnoses Stage 3a chronic kidney disease N18.31 Chronic kidney disease stage 3 subtype: stage 3a (GFR 45-59) Primary hypertension I10 Hypertension type: primary hypertension
== END 2024-03-17 14:12 | disposition home or self-care (01) ==
PROVIDERS: PCP Family Medicine; Visit Provider Internal Medicine Nephrology
DX: N18.31 Chronic kidney disease, stage 3a (principal); I10 Essential (primary) hypertension
CPT/HCPCS: 99214

== ENCOUNTER → 2024-03-17 13:46 | Outpatient (BNVA) | payer MEDICARE, BC, SELFPAY ==
[2022-01-22 07:26] VITALS: BP 118/64; BP 152/70; BP 180/92; BMI 31.6
== END ==
PROVIDERS: PCP Family Medicine; Visit Provider Internal Medicine Nephrology
DX: I12.9 Hypertensive chronic kidney disease with stage 1 through stage 4 chronic kidney disease, or unspecified chronic kidney disease (principal); N18.31 Chronic kidney disease, stage 3a
CPT/HCPCS: 99212

== ENCOUNTER 2024-06-18 14:13 | Outpatient (AMB) | payer MEDICARE, BC, SELFPAY ==
[2022-01-22 07:26] VITALS: BP 118/64; BP 152/70; BP 180/92; BMI 31.6
--- NOTE | 2024-06-18 14:26 | HO.NEPHOV ---
Vital Signs 06/18/24 14:35 Height 5 ft 10 in Weight 222 lb 6 oz BMI 31.9 BP 122/70 Blood Pressure Location Lt brachial Position Sitting Pulse 77 Pulse Source Pulse Oximeter Pulse Oximetry (%) 98 Oxygen Delivery Method Room Air Intake Visit Reasons: Sooner appt per MD/ Eyad Communications Officer Required: No Accompanied by: Self / Same As Patient Allergies amlodipine Allergy (Intermediate, Verified 06/18/24 14:37) tinnitis chlorthalidone Adverse Reaction (Intermediate, Verified 06/18/24 14:37) dehydration erythromycin base Adverse Reaction (Intermediate, Verified 06/18/24 14:37) Gastrointestinal Upset lisinopril Adverse Reaction (Intermediate, Verified 06/18/24 14:37) Cough HPI Comments Details: I had the delight of seeing Ha in follow-up of his chronic kidney disease. He is known to have vascular disease. In the past he had undergone cardiac surgery. Recently he had to undergo cardiac catheterization and PCI. He developed TYSON and his diuretics have been adjusted by [facility] cardiology. His blood pressure is better controlled. He does not have any gout attacks. He remains on Plavix. His blood sugar control is reasonable. He is tolerating angiotensin receptor jay. His volume status is optimal on current dose of diuretics. He denies any chest pain, shortness of breath, paroxysmal nocturnal dyspnea, orthopnea, orthostatic symptoms. He tries to avoid nonsteroidal anti-inflammatories. [facility] Medical History (Updated 03/17/24 @ 13:57 by Braden Gillis MD) On beta jay at home Carotid stenosis CAD (coronary artery disease) CKD (chronic kidney disease), stage III KATI treated with BiPAP COVID-19 vaccine administered Arthritis Diabetes GERD (gastroesophageal reflux disease) Depression Sleep apnea Hx of aortic valve stenosis Elevated cholesterol HTN (hypertension) Surgical History Hx of five vessel coronary artery bypass History of bilateral cataract extraction Status post cardiac revascularization with bypass aortocoronary anastomosis of five coronary vessels History of esophagogastroduodenoscopy (EGD) H/O colonoscopy History of carpal tunnel release Social History Household Members Other:: lives with Are you a primary coronary care unit nurse to a significant other at home: No Do you presently have visiting nurse or other home services: No Alcohol intake: current Patient Tobacco Use Status: Former Tobacco user Tobacco use type: Cigar Current occupational status: retired Current occupation: [employer] Review of Systems Const All systems reviewed & are unremarkable except as noted in HPI and below Physical Exam Vital Signs: Last Vital Signs Pulse 77 06/18/24 14:35 BP 122/70 06/18/24 14:35 Pulse Ox 98 06/18/24 14:35 Oxygen Delivery Method Room Air 06/18/24 14:35 BMI result Body Mass Index 31.9 Const General: comfortable and no acute distress Orientation/consciousness: patient oriented x3 HEENT Head: Yes normocephalic Mouth: Normal oral and palatal mucosa present Eyes EOM: EOMs intact bilaterally Neck Neck: Yes supple Resp Auscultation: clear to auscultation bilaterally Cardio Jugular venous distension: no JVD Rate: regular rate GI Palpation (GI): Soft to palpation Auscultation: normal bowel sounds General: Yes no CVA tenderness Back/Spine/Pelvis Back: no CVA tenderness Skin General skin exam: no rashes or lesions noted Neuro General: patient oriented x3 and moves all extremities Extrem General: Yes no pedal edema Results Reviewed Nephrology Results: No Data to Display Assessment & Plan Assessment & Plan (1) CKD (chronic kidney disease), stage III: Code(s): N18.30 - Chronic kidney disease, stage 3 unspecified Category: Medical Qualifiers: Chronic kidney disease stage 3 subtype: stage 3a (GFR 45-59) Qualified Code(s): N18.31 - Chronic kidney disease, stage 3a (2) HTN (hypertension): Code(s): I10 - Essential (primary) hypertension Category: Medical Qualifiers: Hypertension type: primary hypertension Qualified Code(s): I10 - Essential (primary) hypertension Plan Ha is known to have chronic kidney disease from vascular disease. He is diabetic and hypertensive. He had multiple coronary interventions. He is on statins. He has a great candidate for SGLT2 inhibitor. He is tolerating angiotensin receptor jay. He avoids NSAIDs. He should maintain low-sodium diet and should lose weight. He is on statins. I reduced his torsemide to MWF same dose. I did not make any medication changes today. All his and his 's questions were answered. Further management is pending evolving data. Orders: Orders Creatinine Today I10 - Essential (primary) hypertension, N18.31 - Chronic kidney disease, stage 3a Blood Urea Nitrogen Today I10 - Essential (primary) hypertension, N18.31 - Chronic kidney disease, stage 3a Electrolytes Today I10 - Essential (primary) hypertension, N18.31 - Chronic kidney disease, stage 3a Coding Level of Care Code Est Pt Level 4 (91366) Diagnoses Stage 3a chronic kidney disease N18.31 Chronic kidney disease stage 3 subtype: stage 3a (GFR 45-59) Primary hypertension I10 Hypertension type: primary hypertension
[2024-06-18 14:35] VITALS: BP 122/70; PULSE 77; O2SAT 98; BMI 31.9
== END 2024-06-18 15:11 | disposition home or self-care (01) ==
PROVIDERS: PCP Family Medicine; Visit Provider Internal Medicine Nephrology
DX: N18.31 Chronic kidney disease, stage 3a (principal); I10 Essential (primary) hypertension
CPT/HCPCS: 99214

== ENCOUNTER → 2024-06-18 14:13 | Outpatient (BNVA) | payer MEDICARE, BC, SELFPAY ==
[2022-01-22 07:26] VITALS: BP 118/64; BP 152/70; BP 180/92; BMI 31.6
== END ==
PROVIDERS: PCP Family Medicine; Visit Provider Internal Medicine Nephrology
DX: I12.9 Hypertensive chronic kidney disease with stage 1 through stage 4 chronic kidney disease, or unspecified chronic kidney disease (principal); N18.31 Chronic kidney disease, stage 3a; Z79.02 Long term (current) use of antithrombotics/antiplatelets
CPT/HCPCS: 99212

== ENCOUNTER 2024-09-17 10:13 | Outpatient (AMB) | payer MEDICARE, BC, SELFPAY ==
[2022-01-22 07:26] VITALS: BP 118/64; BP 152/70; BP 180/92; BMI 31.6
--- NOTE | 2024-09-17 10:17 | HO.NEPHOV ---
Vital Signs 09/17/24 10:18 Height 5 ft 10 in Weight 226 lb 6 oz BMI 32.5 BP 134/70 Blood Pressure Location Lt brachial Position Sitting Pulse 56 Pulse Source Pulse Oximeter Pulse Oximetry (%) 98 Oxygen Delivery Method Room Air Intake Visit Reasons: CKD-LVM Spirits Model Required: No Accompanied by: Self / Same As Patient Allergies amlodipine Allergy (Intermediate, Verified 09/17/24 10:18) tinnitis chlorthalidone Adverse Reaction (Intermediate, Verified 09/17/24 10:18) dehydration erythromycin base Adverse Reaction (Intermediate, Verified 09/17/24 10:18) Gastrointestinal Upset lisinopril Adverse Reaction (Intermediate, Verified 09/17/24 10:18) Cough HPI Comments Details: Ha was seen in follow-up of his chronic kidney disease. He is known to have vascular disease. In the past he had undergone cardiac surgery. Recently he had to undergo cardiac catheterization and PCI.His blood pressure is better controlled. He does not have any gout attacks. He remains on Plavix. His blood sugar control is reasonable. He is tolerating angiotensin receptor jay. His volume status is optimal on current dose of diuretics. He denies any chest pain, shortness of breath, paroxysmal nocturnal dyspnea, orthopnea, orthostatic symptoms. He tries to avoid nonsteroidal anti-inflammatories. He is on Jardiance [facility] Medical History (Updated 03/17/24 @ 13:57 by Braden Gillis MD) On beta jay at home Carotid stenosis CAD (coronary artery disease) CKD (chronic kidney disease), stage III KATI treated with BiPAP COVID-19 vaccine administered Arthritis Diabetes GERD (gastroesophageal reflux disease) Depression Sleep apnea Hx of aortic valve stenosis Elevated cholesterol HTN (hypertension) Surgical History Hx of five vessel coronary artery bypass History of bilateral cataract extraction Status post cardiac revascularization with bypass aortocoronary anastomosis of five coronary vessels History of esophagogastroduodenoscopy (EGD) H/O colonoscopy History of carpal tunnel release Social History Household Members Other:: lives with Are you a primary healthcare representative to a significant other at home: No Do you presently have visiting nurse or other home services: No Alcohol intake: current Patient Tobacco Use Status: Former Tobacco user Tobacco use type: Cigar Current occupational status: retired Current occupation: [employer] Review of Systems Const All systems reviewed & are unremarkable except as noted in HPI and below Physical Exam Vital Signs: Last Vital Signs Pulse 56 09/17/24 10:18 BP 134/70 09/17/24 10:18 Pulse Ox 98 09/17/24 10:18 Oxygen Delivery Method Room Air 09/17/24 10:18 BMI result Body Mass Index 32.5 Const General: comfortable and no acute distress Orientation/consciousness: patient oriented x3 HEENT Head: Yes normocephalic Mouth: Normal oral and palatal mucosa present Eyes EOM: EOMs intact bilaterally Neck Neck: Yes supple Resp Auscultation: clear to auscultation bilaterally Cardio Jugular venous distension: no JVD Rate: regular rate GI Palpation (GI): Soft to palpation Auscultation: normal bowel sounds General: Yes no CVA tenderness Back/Spine/Pelvis Back: no CVA tenderness Skin General skin exam: no rashes or lesions noted Neuro General: patient oriented x3 and moves all extremities Extrem General: Yes no pedal edema Results Reviewed Nephrology Results: No Data to Display Assessment & Plan Assessment & Plan (1) CKD (chronic kidney disease), stage III: Code(s): N18.30 - Chronic kidney disease, stage 3 unspecified Category: Medical Qualifiers: Chronic kidney disease stage 3 subtype: stage 3a (GFR 45-59) Qualified Code(s): N18.31 - Chronic kidney disease, stage 3a (2) HTN (hypertension): Code(s): I10 - Essential (primary) hypertension Category: Medical Qualifiers: Hypertension type: primary hypertension Qualified Code(s): I10 - Essential (primary) hypertension Plan Ha is known to have chronic kidney disease from vascular disease. He is diabetic and hypertensive. He had multiple coronary interventions. He is on statins. He is on SGLT2 inhibitor. He is tolerating angiotensin receptor jay. He avoids NSAIDs. He should maintain low-sodium diet and should lose weight. He is on statins. I ordered repeat labs . He may need NaHCO3. I did not make any medication changes today. Further management is pending evolving data Orders: Orders Electrolytes 1 Month I10 - Essential (primary) hypertension, N18.31 - Chronic kidney disease, stage 3a Creatinine 1 Month I10 - Essential (primary) hypertension, N18.31 - Chronic kidney disease, stage 3a Blood Urea Nitrogen 1 Month I10 - Essential (primary) hypertension, N18.31 - Chronic kidney disease, stage 3a Creatinine 4 Months I10 - Essential (primary) hypertension, N18.31 - Chronic kidney disease, stage 3a Blood Urea Nitrogen 4 Months I10 - Essential (primary) hypertension, N18.31 - Chronic kidney disease, stage 3a Electrolytes 4 Months I10 - Essential (primary) hypertension, N18.31 - Chronic kidney disease, stage 3a Coding Level of Care Code Est Pt Level 4 (13507) Diagnoses Stage 3a chronic kidney disease N18.31 Chronic kidney disease stage 3 subtype: stage 3a (GFR 45-59) Primary hypertension I10 Hypertension type: primary hypertension
[2024-09-17 10:18] VITALS: BP 134/70; PULSE 56; O2SAT 98; BMI 32.5
== END 2024-09-17 10:42 | disposition home or self-care (01) ==
PROVIDERS: PCP Family Medicine; Visit Provider Internal Medicine Nephrology
DX: I12.9 Hypertensive chronic kidney disease with stage 1 through stage 4 chronic kidney disease, or unspecified chronic kidney disease (principal); N18.31 Chronic kidney disease, stage 3a
CPT/HCPCS: 99214

== ENCOUNTER → 2024-09-17 10:13 | Outpatient (BNVA) | payer MEDICARE, BC, SELFPAY ==
[2022-01-22 07:26] VITALS: BP 118/64; BP 152/70; BP 180/92; BMI 31.6
== END ==
PROVIDERS: PCP Family Medicine; Visit Provider Internal Medicine Nephrology
DX: I12.9 Hypertensive chronic kidney disease with stage 1 through stage 4 chronic kidney disease, or unspecified chronic kidney disease (principal); N18.31 Chronic kidney disease, stage 3a
CPT/HCPCS: 99212

== ENCOUNTER 2024-12-17 13:58 | Outpatient (AMB) | payer MEDICARE, BC, SELFPAY ==
[2022-01-22 07:26] VITALS: BP 118/64; BP 152/70; BP 180/92; BMI 31.6
--- OUTSIDE RECORDS SUMMARY | 2024-12-17 14:00 | XMS_ITS | Clinical Summary ---
Author Organization [facility] Address [address] [place] [address] Phone Care Team Providers Care Supervisor Braiding Name Role Phone Derrick Patel MD Primary Care Provider [phone] Allergies Active Allergy Reactions Criticality Noted Date Comments Amlodipine Tinnitus 12/22/2020 Chlorthalidone 12/22/2020 Empagliflozin 07/31/2022 Erythromycin 12/22/2020 Lisinopril Other (see comments) 12/22/2020 cough Medications allopurinol (ZYLOPRIM) 300 MG tablet Take 300 mg by mouth daily 1 Active fluticasone (FLONASE) 50 MCG/ACT nasal spray Administer 2 sprays into each nostril 1 (one) time each day 1 Active losartan (COZAAR) 100 MG tablet Take 100 mg by mouth daily 1 Active metFORMIN (GLUCOPHAGE) 1000 MG tablet Take 1,000 mg by mouth 2 (two) times a day 1 Active omeprazole (PriLOSEC) [address] capsule Take 1 capsule by mouth 2 (two) times a day 1 Active pravastatin (PRAVACHOL) 80 MG tablet Take 80 mg by mouth daily 1 Active tamsulosin (FLOMAX) 0.4 MG 24 hr capsule Take 1 capsule by mouth 1 (one) time each day 1 Active aspirin (ST TJ) 81 MG EC tablet Take 81 mg by mouth 2 (two) times a day Active cetirizine (ZyrTEC) 10 MG tablet Take 10 mg by mouth 1 (one) time each day Active triamcinolone (KENALOG) 0.1 % cream Apply topically Acti ve B Complex Vitamins (VITAMIN B COMPLEX PO) Take 1 capsule by mouth 1 (one) time each day Active metoprolol tartrate 25 MG tablet Take 12.5 mg by mouth 2 (two) times a day 1 Active halobetasol (ULTRAVATE) 0.05 % cream Apply 1 application topically 1 Active clopidogrel (PLAVIX) 75 MG tablet Take 75 mg by mouth 1 Active glipiZIDE (GLUCOTROL XL) 10 MG 24 hr tablet Take 10 mg by mouth 1 (one) time each day 3 Active isosorbide mononitrate (IMDUR) 30 MG 24 hr tablet Take 30 mg by mouth 3 Active torsemide (DEMADEX) 20 MG tablet TAKE 1 TABLET(20 MG) BY MOUTH 1 TIME EACH DAY 30 tablet 3 3 Active hydrALAZINE 100 MG tabletIndication s:Stage 3a chronic kidney disease (HCC) Take 1 tablet (100 mg total) by mouth in the morning and 1 tablet (100 mg total) in the evening and 1 tablet (100 mg total) before bedtime. 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 Herpes zoster 05/16/2022 Hypercalcemia 01/30/2022 Hyponatremia 01/30/2022 Obstructive sleep apnea syndrome 01/30/2022 Overview (07/31/2022): EPWORTH zerobipap 5bipap EPWORTH zerobipap 5bipap Plantar fasciitis 01/30/2022 Overview (07/31/2022): podiatry podiatry Type 2 diabetes mellitus 01/30/2022 Overview (07/31/2022): had teachingreferred teaching had teachingreferred teaching Stage 3a chronic kidney disease 10/31/2021 Right carotid artery stenosis 10/29/2021 Cyst of kidney 02/01/2021 Essential (primary) hypertension 12/22/2020 Hypertension 12/22/2020 Resolved Problems Problem Noted Date Diagnosed Date Resolved Date Polyp of nasal cavity 01/30/20222021 Adenomatous polyp of colon 01/30/2022 0 01/30/2022 Overview (01/30/2022): tubular adenoma in 2014, repeat colonoscopy in 2019check 2011 Benign prostatic hyperplasia 01/30/2022 01/30/2022 Chondrodermatitis nodularis helicis 01/30/2022 01/30/2022 Overview (01/30/2022): sees derm Family history of malignant neoplasm of prostate 01/30/2022 01/30/2022 Overview (01/30/2022): brother Gastro-esophageal reflux dis ease without esophagitis 01/30/2022 01/30/2022 Gout 01/30/2022 01/30/2022 Hearing aid worn 01/30/2022 01/30/2022 Hyperlipidemia 01/30/2022 01/30/2022 Macrocytosis - no anemia 01/30/2022 Overview (01/30/2022): normal b12,folate Obese class I 01/30/2022 01/30/2022 Tinnitus 01/30/2022 01/30/2022 History of coronary artery bypass grafting 08/07/2021 01/30/2022 Atherosclerotic heart diseas e of [place] coronary artery with angina pectoris, not otherwise specified 08/01/2021 01/30/2022 Aortic valve stenosis 07/14/20172021 Immunizations Name Administration Dates Next Due H1N1 Inj 11/01/2009 Influenza Whole 07/12/2020, 9,08/03/2012,08/02/2009 ,09/07/2008,09/04/2006 Influenza, Unspecified 09/02/2022,07/18/2015,12/2013 Moderna SARS-COV-2 09/20/2021,02/23/2021, 021 Pfizer SARS-COV-2 01/26/2021 Pneumococcal Conjugate 13-Valent 06/23/2017 Pneumococcal Polysaccharide 01/22/2019, 7 Shingrix 05/07/2019,02/19/2019 Td, Unspecified 11/26/2006 Tdap 08/03/2012 Zoster 11/13/2012 Family History Medical History Relation Comments Cancer Brother Heart disease Brother Heart disease Father Hypertension Father Heart disease Mother Relation Status Comments Brother Father Mother Social History Tobacco Use Types Packs/Day Years Used Date Smoking Tobacco: Every Day Cigars Smokeless Tobacco: Never Tobacco Cessation:Ready to Q uit: Not Asked; Counseling Given: Not Answered Alcohol Use Standard Drinks/Week Comments Not Currently 0 (1 standard drink = 0.6 oz pur e alcohol) Sex and Gender Information Value Date Recorded Sex Assigned at Not on file Legal Sex Male 4:59 PM EST Gender Identity Not on file Sexual Orientation Not on file Last Filed Vital Signs Vital Sign Reading Time Taken Comments Blood Pressure 139/63 08/06/2023 3:19 PM EDT Pulse 83 08/06/2023 3:19 PM EDT Temperature - - Respiratory Rate - - Oxygen Saturation 98% 08/06/2023 3:19 PM EDT Inhaled Oxygen Concentration - - Weight 109 kg (241 lb) 04/23/2023 1:56 PM EDT Height 177.8 cm (5' 10 ) 04/23/2023 1:56 PM EDT Body Mass Index 34.58 04/23/2023 1:56 PM EDT Plan of Treatment Health Maintenance Due Date Last Done Comments Colorectal Cancer Screening: Annual FOBT 2001 Colorectal Cancer Screening: Sigmoidoscopy 2001 Diabetes: Hemoglobin A1C 07/31/2022 01/25/2022, 10/0 12/2019 Diabetes: Ophthalmology Exam 07/31/2022 Diabetes: Pedal Pulse Checked 07/31/2022 Diabetes: Sensory Foot Exam 07/31/2022 Diabetes: Visual Foot Exam 07/31/2022 Influenza Vaccine (#1) 2024 , 07/12/2020, 07/26/2019, Additional history exists Colorectal Cancer Screening: Colonoscopy 01/16/2033 01/16/2023 Pneumococcal Vaccine: 65+ Years Completed 01/22/2019, 06/23/2017, 11/26/2006 Hepatitis B Vaccine Aged Out No longe r eligible based on patient's age to complete this topic Procedures Procedure Name Priority Date/Time Associated Diagnosis Comments EXT RESULT ENTRY Routine 01/25/2022 from Last 3 Months or Most Recently Relevant to Health Maintenance Results * (ABNORMAL) EXT RESULT ENTRY (01/25/2022) WBC 7.2 3.3 - 10.0 10*3/ML Red Blood Cell Count 5.13 Hemoglobin 15.7 13.5 - 17.5 Hematocrit 48.0 41.0 - 53.0 Platelets 258 150 - 399 10*3/UL MCV 93.6 82.0 - 108.0 Iron 75 UG/DL Iron Saturation (TSat) 25 % TIBC 295 ug/dL Sodium 139 137 - 147 Potassium 4.8 3.4 - 5.5 Chloride 102.0 99.0 - 108.0 Bicarbonate (CO2) 24 22 - 30 mmol/L Anion Gap 13 <=30 MMOL/L Glucose 129 60 - 200 BUN 15 4 - 21 mg/dL Creatinine 1.50(A) 0.60 - 1.30 mg/dL Albumin 4.6 3.5 - 5.0 g/dL Calcium 10.0 8.7 - 10.7 mg/dL Phosphorus, Serum 3.8 eGFR Non-Afr [place] 47 Hemoglobin A1C 6.3(A) 4.0 - 6.0 Alb/Creat Ratio, Ur 41.9 mg/g Creat Microalbumin Urine Random (External Result Entry) 86.6 Triglycerides 282(A) 40 - 160 Cholesterol 153 0 - 200 HDL 35 35 - 70 MG/DL LDL Calculated 62 0 - 160 mg/dL 01/25/2022 us Historical Provider LAB BLOOD ORDERABLES Madelyn l Result from Last 3 Months or Most Recently Relevant to Health Maintenance Insurance [facility] MEDICARE [facility] MEDICARE Care Teams Supervisor Braiding Relationship Specialty Start Date End Date Derrick Patel MD [facility] [address] [place] [address] PCP - General Family Medicine 01/22/23
--- OUTSIDE RECORDS SUMMARY | 2024-12-17 14:00 | XMS_ITS | Continuity of Care Document ---
Author Organization [facility] Adult Address [address] [place] [address]- Care Team Providers Care Line Department Supervisor Name Role Phone Amanda GRANDE, Derrick Ayoub Primary Care Physician [phone] [place] [facility] [place]24 [place] 11/28/24 [facility] Adult [address] [place] [id number] Encounter Type: Triage Allergies, Adverse Reactions, Alerts Substance Criticality Severity Reaction Reaction Severity Status erythromycin Active chlorthalidone 1 Act tavares lisinopril cough Active amLODIPine tinnitus Active 1hyponatremia Immunizations Given and Recorded Vaccine Date Status Refusal Reason influenza virus vaccine, inactivated 1 09/01/24 Gi kinsey influenza virus vaccine, inactivated 2 10/15/23 Gi kinsey influenza virus vaccine, inactivated 09/02/22 Jean rded influenza virus vaccine, inactivated 08/03/21 Give n influenza virus vaccine, inactivated 07/29/18 Give n influenza virus vaccine, inactivated 3 06/21/17 Re corded influenza virus vaccine, inactivated 4 07/18/16 Re corded influenza virus vaccine, inactivated 08/30/15 Jean rded influenza virus vaccine, inactivated 07/18/15 Jean rded influenza virus vaccine, inactivated 09/04/14 Jean rded influenza virus vaccine, inactivated 07/17/14 Jean rded influenza virus vaccine, inactivated 07/14/13 Give n influenza virus vaccine, inactivated 07/25/11 Give n influenza virus vaccine, inactivated 07/30/10 Give n SARS-CoV-2 (COVID-19) mRNA-1273 vaccine 09/20/21 R ecorded SARS-CoV-2 (COVID-19) mRNA-1273 vaccine 02/23/21 R ecorded SARS-CoV-2 (COVID-19) mRNA-1273 vaccine 01/26/21 R ecorded Influenza Virus Vaccine (oldterm) 07/12/20 Recorde d Influenza Virus Vaccine (oldterm) 07/26/19 Recorde d Influenza Virus Vaccine (oldterm) 09/07/08 Given Influenza Virus Vaccine (oldterm) 5 09/04/06 Given zoster vaccine, inactivated 05/07/19 Recorded zoster vaccine, inactivated 02/19/19 Recorded pneumococcal 23-valent vaccine 01/22/19 Given pneumococcal 13-valent vaccine 06/23/17 Given Zostavax (oldterm) 6 11/13/12 Given FluLaval (oldterm) 08/03/12 Given FluLaval (oldterm) 7 08/02/09 Given tetanus/diphtheria/pertussis, acel(Tdap) 08/03/12 Given influ virus vac, H1N1, inactive(oldterm) 8 11/01/09 Given tetanus-diphtheria toxoids (Td) 11/26/06 Given Pneumococcal Vaccine (oldterm) 11/26/06 Given 1Result Comment: [facility]: [id number] Screening checklist reviewed with patient. Negative for any contraindications. 2Result Comment: QUESTIONAIRE COMPLETE 3Result Comment: [06/23/2017] high dose 4Result Comment: [12/19/2016] micah 5Admin Note: GIVEN IN CLINIC SHAM 6Admin Note: rcvd micah 7Admin Note: [facility] 8Admin Note: per pt rcvd elsewhere Medications allopurinol 300 mg oral tablet 1, tablet, By Mouth, Daily, # 90 tablet, Refills 1, Tot. Refills 1, Maintenance, 11/18/24 12:13:00 PM EST, Route to Pharmacy Electronically, [facility] #[id number], 175, cm, 09/01/24 15:22:00 EDT, Height, 106.2, kg, 06/24/23 9:13:00 EDT, Dry Weight Start Date: 11/18/24 Status: Ordered Quantity: 90.0 Unit: tablet Repeat number: 2 aspirin 81 mg oral enteric coated tablet 1 tablet = 81 mg, By Mouth, Daily, # 30 tablet, 0 Refills, Maintenance, 05/18/14 2:45:58 PM EDT, EC Tablet Start Date: 05/18/14 Status: Ordered Quantity: 30.0 Unit: tablet Repeat number: 1 cetirizine 10 mg oral capsule 1 capsule = 10 mg, By Mouth, 2 times a day, per dermatology, # 180 capsule, 3 Refills, Maintenance,06/11/24 8:16:00 AM EDT, [facility][id number], Partial fill upon patient request if the prescription is for a schedule II opioid drug., 175, cm, 04/21/24 13:55:00 EDT, Height, 106.2, kg, 06/24/23 9:13:00 EDT, Dry Weight Start Date: 06/11/24 Status: Ordered Quantity: 180.0 Unit: capsule Repeat number: 4 cilostazol 50 mg oral tablet 1 tablet = 50 mg, By Mouth, Daily, 0 Refills, Maintenance, 04/21/24 1:55:00 PM EDT, Partial fill upon patient request if the prescription is for a schedule II opioid drug. Start Date: 04/21/24 Status: Ordered Repeat number: 1 clopidogrel 75 mg oral tablet 75 mg, 1, tablet, By Mouth, Daily, # 90 tablet, Refills 3, Tot. Refills 3, Maintenance, 10/30/23 10:21:00 AM EST, Route to Pharmacy Electronically, [facility] #[id number], Partial fill upon patient request if the prescription is for a schedule II opioid drug., 175, cm, 10/15/23 13:43:00 EST, Height, 106.2, kg, 06/24/23 9:13:00 EDT, Dry Weight Start Date: 10/30/23 Status: Ordered Quantity: 90.0 Unit: tablet Repeat number: 4 fluticasone 50 mcg/inh nasal spray 2 sprays, Nasal, Daily, in each nostril use opposite hnad for each nostril, # 16 Gm, 5 Refills, Maintenance, 08/15/22 3:02:00 PM EDT, [facility] #[id number], 2 sprays Nasal Daily,Instr:in each nostril; use opposite hnad for each nostril, 179, cm, 08/05/22 16:23:00 EDT, Height, 93.8, kg, 08/02/21 12:43:00 EDT, Dry Weight Start Date: 08/15/22 Status: Ordered Quantity: 16.0 Unit: g Repeat number: 6 glipiZIDE 10 mg oral tablet, extended release 1 tablet = 10 mg, By Mouth, Daily, # 90 tablet, 3 Refills, Maintenance, 12/19/23 3:34:00 PM EST, ER Tablet, [facility] #[id number], Partial fill upon patient request if the prescription is for a schedule II opioid drug., 175, cm, 10/15/23 13:43:00 EST, Height, 106.2, kg, 06/24/23 9:13:00 EDT, Dry Weight Start Date: 12/19/23 Status: Ordered Quantity: 90.0 Unit: tablet Repeat number: 4 hydrALAZINE 100 mg oral tablet 1 tablet = 100 mg, By Mouth, 3 times a day, 0 Refills, Maintenance, 09/24/21 2:29:00 PM EST, Partial fill upon patient request if the prescription is for a schedule II opioid drug. Start Date: 09/24/21 Status: Ordered Repeat number: 1 Isosorbide Mononitrate = 30 mg, By Mouth, Daily in AM, 0 Refills, Maintenance, 10/15/23 1:43:00 PM EST, Partial fill upon patient request if the prescription is for a schedule II opioid drug. Start Date: 10/15/23 Status: Ordered Repeat number: 1 Jardiance 10 mg oral tablet 1 tablet = 10 mg, By Mouth, Daily in AM, # 90 tablet, 3 Refills, Maintenance, 10/31/24 6:06:00 AM EST, Tablet, [facility] #[id number], Partial fill upon patient request if the prescription is for a schedule II opioid drug., 175, cm, 09/01/24 15:22:00 EDT, Height, 106.2, kg, 06/24/23 9:13:00 EDT, Dry Weight Start Date: 10/31/24 Status: Ordered Quantity: 90.0 Unit: tablet Repeat number: 4 losartan 100 mg oral tablet 1 tablet, By Mouth, Daily, # 90 tablet, 3 Refills, Maintenance, 08/02/24 10:05:00 AM EDT, [facility] #[id number], 175, cm, 04/21/24 13:55:00 EDT, Height, 106.2, kg, 06/24/23 9:13:00 EDT, Dry Weight Start Date: 08/02/24 Status: Ordered Quantity: 90.0 Unit: tablet Repeat number: 1 metFORMIN 500 mg oral tablet 1 tablet = 500 mg, By Mouth, Daily at supper, # 90 tablet, 3 Refills, Maintenance, 05/29/23 5:18:00 AM EDT, [facility] #[id number], 179, cm, 04/17/23 5:15:00 EDT, Height, 93.8, kg, 08/02/21 12:43:00 EDT, Dry Weight Start Date: 05/29/23 Status: Ordered Quantity: 90.0 Unit: tablet Repeat number: 4 metoprolol 25 mg oral tablet 25 mg, 1, tablet, By Mouth, 2 times a day, # 30 tablet, Refills 1, Tot. Refills 1, Maintenance, 09/04/21 2:21:00 PM EDT, Route to Pharmacy Electronically, [facility] #[id number], Partial fill upon patient request if the prescription is for a schedule II opioid drug., 179, cm, 08/22/21 12:57:00 EDT, Height, 93.8, kg, 08/02/21 12:43:00 EDT, Dry Weight Start Date: 09/04/21 Status: Ordered Quantity: 30.0 Unit: tablet Repeat number: 2 Nystop 722376 u/gm powder 1 application, Topically, 2 times a day, # 60 Gm, 5 Refills, Acute 02/28/25 3:40:00 PM EDT, 243:40:00 PM EDT, Powder, [facility] #[id number], Partial fill upon patient request if the prescription is for a schedule II opioid drug., 1 application Topically 2 times a day, 175, cm, 09/01/24 15:22:00 EDT, Height, 106.2, kg, 06/24/23 9:13:00 EDT, Dry Weight Start Date: 09/01/24 Stop Date: 02/28/25 Status: Ordered Quantity: 60.0 Unit: g Repeat number: 6 omeprazole 20 mg oral enteric coated capsule 1 capsule, By Mouth, Daily, # 180 capsule, 3 Refills, 02/23/24 3:00:00 AM EDT, [facility] #[id number], 175, cm, 10/15/23 13:43:00 EST, Height, 106.2, kg, 06/24/23 9:13:00 EDT, Dry Weight Start Date: 02/23/24 Status: Ordered Quantity: 180.0 Unit: capsule Repeat number: 4 pravastatin 80 mg oral tablet 1 tablet, By Mouth, Daily, # 90 tablet, 1 Refills, Maintenance, 08/18/24 11:15:00 AM EDT, [facility] #[id number], 175, cm, 04/21/24 13:55:00 EDT, Height, 106.2, kg, 06/24/23 9:13:00 EDT, Dry Weight Start Date: 08/18/24 Status: Ordered Quantity: 90.0 Unit: tablet Repeat number: 1 tamsulosin 0.4 mg oral capsule 2, capsule, By Mouth, Daily at bedtime, # 180 capsule, Refills 3, Maintenance, 05/05/24 12:38:00 PM EDT, Route to Pharmacy Electronically, [facility] #[id number], 175, cm, 04/21/24 13:55:00 EDT, Height, 106.2, kg, 06/24/23 9:13:00 EDT, Dry Weight Start Date: 05/05/24 Status: Ordered Quantity: 180.0 Unit: capsule Repeat number: 1 torsemide 20 mg oral tablet 1 tablet = 20 mg, By Mouth, Daily, # 30 tablet, 0 Refills, Maintenance, 06/24/23 8:48:00 AM EDT, Tablet, Partial fill upon patient request if the prescription is for a schedule II opioid drug. Start Date: 06/24/23 Status: Ordered Quantity: 30.0 Unit: tablet Repeat number: 1 Vitamin B Complex oral tablet, extended release 1 tablet, By Mouth, Daily, 10 Refills, Maintenance, 07/26/19 1:42:29 PM EDT Start Date: 07/26/19 Status: Ordered Repeat number: 1 Vitamin D3 1000 intl units oral capsule 2000 iu, By Mouth, Daily, 0 Refills, Maintenance, 04/21/24 2:02:00 PM EDT, Partial fill upon patientrequest if the prescription is for a schedule II opioid drug. Start Date: 04/21/24 Status: Ordered Repeat number: 1 Problem List Condition Confirmation Course Effective Dates Status Health Status Informant Adenomatous polyp of colon/colonkoscopy 2013;repeat pending 1, 2 Confirmed Active Aortic stenosis, mild echo Confirmed 07/14/17 Active Benign Essential Hypertension Confirmed Active BPH (benign prostatic hyperplasia) Confirmed Active Chondrodermatitis nodularis helicis 3 Confirmed Active CKD (chronic kidney disease) stage 3, GFR 30-59 ml/min Confirmed Active ASHD (arteriosclerotic heart disease) CABGx5 2020/cannot afford GLP-1/sglt2 Confirmed 08/06/21 Active Renal cyst Confirmed Active Family history of prostate cancer 4 Confirmed Active GERD without esophagitis egd 2015 wnl Confirmed Active Gout Confirmed Active Hearing aid worn Confirmed Active Herpes zoster rt T4 dermatome Confirmed 05/16/22 Active Hx of CABG x5 2020 Confirmed 08/07/21 Active Hyperlipidemia Confirmed Active Obese class I Confirmed Active Obstructive sleep apnea syndrome 5, 6, 7 Confirmed Active Encounter for monitoring long-term proton pump inhibitor therapy Confirmed Active PAD (peripheral artery disease) Confirmed Active Plantar fasciitis 8 Confirmed Active Polyp of Nasal Cavity Confirmed Active Tinnitus NOS Confirmed Active Poor dentition Confirmed Active Type 2 diabetes mellitus with nephropathy/cannot afford GLP-1 9, 10 Confirmed Active 1tubular adenoma in 2013, repeat colonoscopy in 2018 2check 2011 3sees derm 4brother 5EPWORTH zero 6bipap 12/ 7bipap 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 Social History Social History Type Response Smoking Status Cigars or pipes carey y within last 30 days; Interested in cessation: No; Type: Cigars; Tobacco use times per day: 0.5 cigar daily; entered on: 08/22/21 Sex Sex Representation Male (finding) Patient Care team information Care Team Personnel Name: Yolanda Murguia RN Position: S RN Member Role: Primary Care Nurse Name: Braden Gillis MD Position: [facility] Member Role: Lifetime Consulting Physician Address: [address] [place] [address] [address] [place] [address]- Telecom: Name: Aysha Haskins RN Position: [facility] RN Member Role: Primary Care Nurse Name: Melinda Romero RN Position: [facility] RN Member Role: Primary Care Nurse Name: Derek Kim RN Position: [facility] RN Member Role: Primary Care Nurse Name: Derrick Patel MD Position: [facility] Physician - Primary Care Member Role: PCP Address: [address] [place] [address]- [place] Telecom: Name: Jaqueline Jefferson RN Position: [facility] RN Member Role: Primary Care Nurse Name: Alicia Yang RN Position: [facility] ED RN W/OE and Tasks Member Role: Primary Care Nurse Name: Noel Driscoll MD Position: [facility] Outreach Member Role: Lifetime Consulting Physician Address: [address] [facility] [address] [facility], [place] [address]- [place] Telecom: Name: Jose Eduardo Sales RN Position: [facility] RN Member Role: Primary Care Nurse Name: Ivett Keyes RN Position: [facility] RN Member Role: Primary Care Nurse Name: Edith Mata RN Position: [facility] RN Member Role: Primary Care Nurse Name: Radha Pendleton RN Position: [facility] RN Member Role: Primary Care Nurse Name: Mary Barclay RN Position: [facility] Insurance Coder Member Role: Primary Care Nurse Care Team Related Persons Name: NIK PIMENTEL Name: JESUS POWER Name: ALETA POWER Insurance Providers Guarantor name: LAWRENCE POWER Health Plan Information #: 1 Payer: MEDICARE PART B OUTPT Member Number: NA Policy Number: NA Group Number: NA Health Plan Information #: 2 Payer: BLUE MEDICARE SUPPL Member Number: NA Policy Number: NA Group Number: NA
--- OUTSIDE RECORDS SUMMARY | 2024-12-17 14:00 | XMS_ITS | Encounter Summary ---
Author Organization [facility] Address [address] [facility] [address] [place] [address] Phone Care Team Providers Care Eligibility Specialist Name Role Phone Derrick Patel MD Primary Care Provider [phone] Encounter Details Date Type Department Care Team (Late st Contact Info) Description 12/19/2023 Office Communication [facility] [address] [facility] [address] [place] [address] Leno Ricardo MD [address] [facility] [address] [place] [address] Social History Tobacco Use Types Packs/Day Years Used Date Smoking Tobacco: Every Day Cigars Smokeless Tobacco: Never Alcohol Use Standard Drinks/Week Comments Not Currently 0 (1 standard drink = 0.6 oz pur e alcohol) Sex and Gender Information Value Date Recorded Sex Assigned at Not on file Legal Sex Male 4:59 PM EST Gender Identity Not on file Sexual Orientation Not on file documented as of this encounter Plan of Treatment Not on file documented as of this encounter Visit Diagnoses Not on filedocumented in this encounter Care Teams Eligibility Specialist Relationship Specialty Start Date End Date Derrick Patel MD [address] [place] [address] [address] [place] [id number] PCP - General Family Medicine 01/22/23 documented as of this encounter
--- OUTSIDE RECORDS SUMMARY | 2024-12-17 14:00 | XMS_ITS | Continuity of Care Document ---
Author Organization [facility] Address [address] [place] [address]- Care Team Providers Care Hand Winder Name Role Phone Amanda GRANDE, Derrick Ayoub Primary Care Physician [place] [facility] [place](s): 11/04/24 - 12/04/24 [facility] Adult [address] [place] [address]- Encounter Type: Triage Allergies, Adverse Reactions, Alerts [...] Pneumococcal Vaccine (oldterm) 11/26/06 Given 1Result Comment: [facility] [place]: [id number] Screening checklist reviewed with patient. Negative for any contraindications. 2Result Comment: QUESTIONAIRE COMPLETE 3Result Comment: [06/23/2017] high dose 4Result Comment: [12/19/2016] micah 5Admin Note: GIVEN IN CLINIC SHAM 6Admin Note: rcvd micah 7Admin Note: [facility] 8Admin Note: per pt rcvd elsewhere Medications allopurinol 300 mg oral tablet 1, tablet, By Mouth, Daily, # 90 tablet, Refills 1, Tot. Refills 1, Maintenance, 11/18/24 12:13:00 PM EST, Route to Pharmacy Electronically, [facility] #[id number], 175, cm, 09/01/24 15:22:00 EDT, Height, 106.2, [...] capsule, 3 Refills, Maintenance,06/11/24 8:16:00 AM EDT, [facility] #[id number], Partial fill upon patient request if the [...] 10:21:00 AM EST, Route to Pharmacy Electronically, [facility] #[id number], Partial fill upon patient request if the [...] 5 Refills, Maintenance, 08/15/22 3:02:00 PM EDT, [facility] #[id number], 2 sprays Nasal Daily,Instr:in each nostril; use [...] Maintenance, 12/19/23 3:34:00 PM EST, ER Tablet, [facility] #[id number], Partial fill upon patient request if the [...] Refills, Maintenance, 10/31/24 6:06:00 AM EST, Tablet, [facility] #[id number], Partial fill upon patient request if the prescription is for a schedule II opioid drug., 175, cm, 09/01/24 15:22:00 EDT, Height, 106.2, kg, 06/24/23 9:13:00 EDT, Dry Weight Start Date: 10/31/24 Status: Ordered Quantity: 90.0 Unit: tablet Repeat number: 4 losartan 100 mg oral tablet 1 tablet, By Mouth, Daily, # 90 tablet, 3 Refills, Maintenance, 08/02/24 10:05:00 AM EDT, [facility] #[id number], 175, cm, 04/21/24 13:55:00 EDT, Height, 106.2, kg, 06/24/23 9:13:00 EDT, Dry Weight Start Date: 08/02/24 Status: Ordered Quantity: 90.0 Unit: tablet Repeat number: 1 metFORMIN 500 mg oral tablet 1 tablet = 500 mg, By Mouth, Daily at supper, # 90 tablet, 3 Refills, Maintenance, 05/29/23 5:18:00 AM EDT, [facility] #[id number], 179, cm, 04/17/23 5:15:00 EDT, Height, 93.8, kg, 08/02/21 12:43:00 EDT, Dry Weight Start Date: 05/29/23 Status: Ordered Quantity: 90.0 Unit: tablet Repeat number: 4 metoprolol 25 mg oral tablet 25 mg, 1, tablet, By Mouth, 2 times a day, # 30 tablet, Refills 1, Tot. Refills 1, Maintenance, 09/04/21 2:21:00 PM EDT, Route to Pharmacy Electronically, [facility] #[id number], Partial fill upon patient request if the prescription is for a schedule II opioid drug., 179, cm, 08/22/21 12:57:00 EDT, Height, 93.8, kg, 08/02/21 12:43:00 EDT, Dry Weight Start Date: 09/04/21 Status: Ordered Quantity: 30.0 Unit: tablet Repeat number: 2 Nystop 136655 u/gm powder 1 application, Topically, 2 times a day, # 60 Gm, 5 Refills, Acute 02/28/25 3:40:00 PM EDT, :40:00 PM EDT, Powder, [facility] #[id number], Partial fill upon patient request if the [...] capsule, 3 Refills, 02/23/24 3:00:00 AM EDT, [facility] #[id number], 175, cm, 10/15/23 13:43:00 EST, Height, 106.2, kg, 06/24/23 9:13:00 EDT, Dry Weight Start Date: 02/23/24 Status: Ordered Quantity: 180.0 Unit: capsule Repeat number: 4 pravastatin 80 mg oral tablet 1 tablet, By Mouth, Daily, # 90 tablet, 1 Refills, Maintenance, 08/18/24 11:15:00 AM EDT, [facility] #[id number], 175, cm, 04/21/24 13:55:00 EDT, Height, 106.2, kg, 06/24/23 9:13:00 EDT, Dry Weight Start Date: 08/18/24 Status: Ordered Quantity: 90.0 Unit: tablet Repeat number: 1 tamsulosin 0.4 mg oral capsule 2, capsule, By Mouth, Daily at bedtime, # 180 capsule, Refills 3, Maintenance, 05/05/24 12:38:00 PM EDT, Route to Pharmacy Electronically, [facility] #[id number], 175, cm, 04/21/24 13:55:00 EDT, Height, 106.2, [...] 2011 3sees derm 4brother 5EPWORTH zero 6bipap 12/5 7bipap 8podiatry 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 Social History Social History Type Response Smoking Status Cigars or pipes carey y within last 30 days; Interested in cessation: No; Type: Cigars; Tobacco use times per day: 0.5 cigar daily; entered on: 08/22/21 Sex Sex Representation Male (finding) Patient Care team information Care Team Personnel Name: Yolanda Murguia RN Position: [facility] RN Member Role: Primary Care Nurse Name: Braden Gillis MD Position: [facility] Member Role: Lifetime Consulting Physician Address: [address] [place] [address] [address] [facility] [address]- Telecom: Name: Aysha Haskins RN Position: [facility] RN Member Role: Primary Care Nurse Name: Melinda Romero RN Position: [facility] RN Member Role: Primary Care Nurse Name: Derek Kim RN Position: [facility] RN Member Role: Primary Care Nurse Name: Derrick Patel MD Position: [facility] Physician - Primary Care Member Role: PCP Address: [address] [place] [address]- [place] Telecom: Name: Jaqueline Jefferson RN Position: [facility] RN Member Role: Primary Care Nurse Name: Alicia Yang RN Position: [facility] ED RN W/OE and Tasks Member Role: Primary Care Nurse Name: Noel Driscoll MD Position: [facility] Outreach Member Role: Lifetime Consulting Physician Address: [address] [facility] [address] [facility] [place] [address]- [place] Telecom: Name: Jose Eduardo Sales RN Position: [facility] RN Member Role: Primary Care Nurse Name: Ivett Keyes RN Position: [facility] RN Member Role: Primary Care Nurse Name: Edith Mata RN Position: [facility] RN Member Role: Primary Care Nurse Name: Radha Pendleton RN Position: [facility] RN Member Role: Primary Care Nurse Name: Mary Barclay RN Position: [facility] [employer] Operator Member Role: Primary Care Nurse Care Team [...]
--- OUTSIDE RECORDS SUMMARY | 2024-12-17 14:00 | XMS_ITS | Encounter Summary ---
Author Organization [facility] Address [address] [facility] [address] [place] [address] Phone Care Team Providers Care Assembler Cards And Announcements Name Role Phone Derrick Patel MD Primary Care Provider [phone]- [phone] Encounter Details Date Type Department Care Team (Late st Contact Info) Description 03/07/2021 Documentation Only [facility] [address] [facility] [address] [place] [phone] Adriana Lyle [place] Social History Tobacco Use Types Packs/Day Years Used Date Smoking Tobacco: Every Day Cigars Smokeless Tobacco: Current Alcohol Use Standard Drinks/Week Comments Yes 0 (1 standard drink = 0.6 oz [...] on filedocumented in this encounter Care Teams Assembler Cards And Announcements Relationship Specialty Start Date End Date Derrick Patel MD [address] [place], [place] [address] [place] [id number] PCP - General Family Medicine 01/22/23 documented as of this encounter
--- OUTSIDE RECORDS SUMMARY | 2024-12-17 14:00 | XMS_ITS | Encounter Summary ---
Author Organization [facility] Address [address] [place] [address] Care Team Providers Care Manager Specialty Name Role Phone Derrick Patel MD Primary Care Provider +1- [phone] Reason for Visit * Reason Onset Date Comments Med Refill 11/29/2024 Encounter Details Date Type Department Care Team (Late st Contact Info) Description 11/29/2024 Telephone [facility] [address] [place] [address] [address] [place] [phone] Hal Dial MD [address] [place] [address] [address] [place] [address] Med Refill Social History Tobacco Use Types Packs/Day Years Used Date Smoking Tobacco: Every Day Smokeless Tobacco: Never Alcohol Use Standard Drinks/Week Comments Yes 0 (1 standard drink = 0.6 oz pur e alcohol) Sex and Gender Information Value Date Recorded Sex Assigned at Not on file Legal Sex Male 1:14 AM EST Gender Identity Not on file Sexual Orientation Not on file documented as of this encounter Ordered Prescriptions Prescription Sig Dispense Quantity Refills Last Filled Start Date End Date metoprolol tartrate (LOPRESSOR) 50 mg tablet Take 1 tablet (50 mg total) by mouth 2 (two) times a day. 180 tablet 1 11/29/2024 documented in this encounter Progress Notes * Sowmya Carrera - 11/29/2024 4:02 PM EST The patient called requesting a refill for Metoprolol 50 mg, 1 tablet twice a day, 90 day supply, pharmacy confirmed. documented in this encounter Plan of Treatment Not on file documented as of this encounter Visit Diagnoses Not on filedocumented in this encounter Discontinued Medications Medication Sig Discontinue Reason Start Date End Da te metoprolol tartrate (LOPRESSOR) 50 mg tablet Take 1 tablet (50 mg total) by mouth 2 (two) times a day. Reorder 11/29/2024 documented as of this encounter Historical Medications * This list may reflect changes made after this encounter. metoprolol tartrate (LOPRESSOR) 50 mg tablet Take 1 tablet (50 mg total) by mouth 2 (two) times a day. 11/29/2024 added in this encounter Care Teams Manager Specialty Relationship Specialty Start Date End Date Derrick Patel MD [facility] [address] [place] [id number] PCP - General 01/10/23 documented as of this encounter
--- OUTSIDE RECORDS SUMMARY | 2024-12-17 14:00 | XMS_ITS | Clinical Summary ---
Author Organization [facility] it Address [address] [place] [address] Care Team Providers Care Sewing Machine Maintenance Mechanic Name Role Phone Derrick Patel MD Primary Care Provider [phone]- [phone] Medications clopidogreL (PLAVIX) 75 mg tablet TAKE 1 TABLET BY MOUTH DAILY 90 tablet 2 11/30/19 25 Active metoprolol tartrate (LOPRESSOR) 50 mg tablet TAKE 1 TABLET BY MOUTH TWICE DAILY 180 tablet 1 12/01/19 25 Active metoprolol tartrate (LOPRESSOR) 50 mg tablet Take 1 tablet (50 mg total) by mouth 2 (two) times a day. 180 tablet 1 11/29/19 25 Active metoprolol tartrate (LOPRESSOR) 50 mg tablet TAKE 1 TABLET BY MOUTH TWICE DAILY 180 tablet 2 12/03/19 25 Active isosorbide mononitrate (IMDUR) 30 mg 24 hr tablet TAKE 1 TABLET BY MOUTH DAILY 90 tablet 1 12/10/19 25 Active metoprolol tartrate (LOPRESSOR) 50 mg tablet TAKE 1 TABLET BY MOUTH TWICE DAILY 60 tablet 12/01/19 25 025 Discontinued metoprolol tartrate (LOPRESSOR) 50 mg tablet Take 1 tablet (50 mg total) by mouth 2 (two) times a day. 025 Discontinued(Re order) Encounters Date Type Department Care Team Description 11/29/2024 Telephone [facility] [address] [place] [address] Hal Dial MD Med Refill from Last 3 Months Immunizations Name Administration Dates Next Due Moderna SARS-CoV-2 COVID-19, mRNA, LNP-S, preservative free 09/20/2021,02/23/2021,01/26/2021 Pfizer SARS-CoV-2 COVID-19, mRNA, LNP-S, preservative free 01/26/2021 Surgical History Surgery Date Site/Laterality Comments OTHER SURGICAL HISTORY 02/09/2021 PROCEDURE: ECHOCARDIOGRAM WITH CONTRAST (DEFINITY); COMMENT: 55-60% OTHER SURGICAL HISTORY 02/09/2021 PROCEDURE: HISTORY OTHER; COMMENT: Ultrasound, retroperitonealnad aside cysts renal OTHER SURGICAL HISTORY 02/07/2021 PROCEDURE: X-RAY EXAM OF CHEST VEINS OTHER SURGICAL HISTORY 02/04/2021 PROCEDURE: HISTORY OTHER; COMMENT: CT of abdomen and pelvis abnormal OTHER SURGICAL HISTORY 02/04/2021 PROCEDURE: TN ECG ROUTINE ECG W/LEAST 12 LDS W/I&R; COMMENT: sinusarrythmia OTHER SURGICAL HISTORY 02/04/2021 PROCEDURE: HISTORY OTHER; COMMENT: US scan of gallbladder OTHER SURGICAL HISTORY 01/18/2021 PROCEDURE: ECHOCARDIOGRAM WITH CONTRAST (DEFINITY); COMMENT: mild ef 55% OTHER SURGICAL HISTORY 01/08/2021 PROCEDURE: TN DOPPLER ECHOCARD PULSE WAVE W/SPECTRAL DISPLAY; COMMENT: renal artery no CLAUDY left /possible RT OTHER SURGICAL HISTORY 08/16/2019 PROCEDURE: HISTORY OTHER; COMMENT: Carotid imaging < 1-49% bilateral OTHER SURGICAL HISTORY 08/16/2019 PROCEDURE: ECHOCARDIOGRAM WITH CONTRAST (DEFINITY); COMMENT: ef 55-60% mild as OTHER SURGICAL HISTORY 01/27/2018 PROCEDURE: HISTORY OTHER; COMMENT: Carotid imaging OTHER SURGICAL HISTORY 07/14/2017 PROCEDURE: ECHOCARDIOGRAM WITH CONTRAST (DEFINITY) OTHER SURGICAL HISTORY 06/26/2017 PROCEDURE: PVCA DUPLEX SCAN, HEMODIALYSIS ACCESS; COMMENT: ultrasound scan of aorta OTHER SURGICAL HISTORY 06/26/2017 PROCEDURE: HISTORY OTHER; COMMENT: Carotid imaging OTHER SURGICAL HISTORY 03/11/2016 PROCEDURE: UPPER GI ENDOSCOPY, REMOVE LESION OTHER SURGICAL HISTORY 08/29/2014 PROCEDURE: COLONOSCOPY FLEX-PROX SPLEN FLEX; W/STENT PLCMT OTHER SURGICAL HISTORY 04/20/2012 PROCEDURE: TN ECG ROUTINE ECG W/LEAST 12 LDS W/I&R OTHER SURGICAL HISTORY 12/02/2007 PROCEDURE: OUTSIDE SPIROMETRY COLONOSCOPY 12/11/2006 PROCEDURE: HISTORICAL COLONOSCOPY OTHER SURGICAL HISTORY 03/26/2005 PROCEDURE: OUTSIDE EKG OTHER SURGICAL HISTORY 11/03/1997 PROCEDURE: HISTORY OTHER; COMMENT: Fiberoptic esophagoscopy OTHER SURGICAL HISTORY PROCEDURE: HISTORY OTHER; COMMENT: CT of thorax OTHER SURGICAL HISTORY PROCEDURE: HISTORY OTHER; COMMENT: Cardiac Tc-99m MIBI study OTHER SURGICAL HISTORY PROCEDURE: HISTORY OTHER; COMMENT: Polysomnogram Medical History Medical History Date Comments Adenomatous polyp of colon DX:Ad enomatous polyp of colon BPH (benign prostatic hyperplasia) DX:BPH (benign prostatic hyperplasia) 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 Depression with anxiety DX:Depre ssion with anxiety Encounter for monitoring zahira g-term proton pump inhibitor therapy DX:Encounter for monitoring long-term proton pump inhibitor therapy Family history of prostate cancer DX:Family history of prostate cancer GERD without esophagitis DX:GERD without esophagitis; COMMENT: egd 2015 wnl Gout DX:Gout Hearing aid worn DX:Hearing aid worn Hypercalcemia DX:Hypercalcemia Hyponatremia DX:Hyponatremia Macrocytosis without anemia DX:M acrocytosis without anemia; COMMENT: normal b12 folate Obstructive sleep apnea syndrome DX:Obstructive sleep apnea syndrome Plantar fasciitis DX:Plantar fas ciitis Polyp of nasal cavity DX:Polyp o f nasal cavity Tinnitus DX:Tinnitus 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) Acute bronchitis DX:Acute bronch itis Adult BMI 29.0-29.9 kg/sq m DX:A dult BMI 29.0-29.9 kg/sq m Alcohol ingestion, more than 4 drinks/day DX:Alcohol ingestion, more than 4 drinks/day Asthma DX:Asthma Carpal tunnel syndrome DX:Carpal tunnel syndrome Dental infection DX:Dental infec tion IFG (impaired fasting glucose) D X:IFG (impaired fasting glucose) Rash DX:Rash Skin ulcer of perineum (CMS/HCC) DX:Skin ulcer of perineum (HCC) Family History Medical History Relation Name Comments Coronary artery disease Brother Other: Atherosclerotic heart disease Brother Prostate cancer Brother Multiple sclerosis Daughter Coronary artery disease Father Heart failure Father Hyperlipidemia Father Hypertension Father Other: Atherosclerotic heart disease Father Alzheimer's disease Mother COPD Mother Heart failure Mother Other: Atherosclerotic heart disease Mother Relation Name Status Comments Brother Daughter Father Mother Social History Tobacco Use Types Packs/Day Years Used Date Smoking Tobacco: Every Day Smokeless Tobacco: Never Alcohol Use Standard Drinks/Week Comments Yes 0 (1 standard drink = 0.6 oz pur e alcohol) Sex and Gender Information Value Date Recorded Sex Assigned at Not on file Legal Sex Male 1:14 AM EST Gender Identity Not on file Sexual Orientation Not on file Obstetrics History Last Filed Vital Signs Vital Sign Reading Time Taken Comments Blood Pressure 108/60 07/30/2024 2:25 PM EDT Sit ting L Arm Pulse 84 07/30/2024 2:25 PM EDT Temperature - - Respiratory Rate - - Oxygen Saturation - - Inhaled Oxygen Concentration - - Weight 100 kg (221 lb) 07/30/2024 2:25 PM EDT Height 177.8 cm (5' 10 ) 07/30/2024 2:25 PM EDT Body Mass Index 31.71 07/30/2024 2:25 PM EDT Plan of Treatment Health Maintenance Due Date Last Done Comments DTaP,Tdap,and Td Vaccines (1 - Tdap) 1971 Zoster Vaccines (1 of 2) 2002 RSV Immunization Patients 60+ Years Old (1 - Risk 60-74 years 1-dose series) 2012 Pneumococcal Vaccine: 50+ Years (2 of 2 - PCV) 01/23/2020 01/22/2019 Abdominal Aortic Aneurysm (AAA) Screen 10/13/2022 Colorectal Cancer Screening: Colonoscopy 10/13/2022 Depression Screening 10/13/2022 Falls Risk Assessment 10/13/2022 Hepatitis C Screening 10/13/2022 Social Influencers of Health Screening 10/13/2022 COVID-19 Vaccine ( season) 2024 09/20/2021, 02/23/2021, 01/26/2021, Additional history exists Influenza Vaccine (#1) 2024 09/02/2022, 2017 Hypertension/CHF/CAD Annual BMP Blood Test 06/07/2025 06/07/2024, 06/01/2024 Cholesterol Screening (Lipid Panel) 06/01/2029 06/01/2024 HIB Vaccines Aged Out No longer eligi ble based on patient's age to complete this topic HPV Vaccines Aged Out No longer eligi ble based on patient's age to complete this topic Hepatitis A Vaccines Aged Out No long er eligible based on patient's age to complete this topic Hepatitis B Vaccines Aged Out No long er eligible based on patient's age to complete this topic IPV Vaccines Aged Out No longer eligi ble based on patient's age to complete this topic MMR Vaccines Aged Out No longer eligi ble based on patient's age to complete this topic Meningococcal ACWY Vaccine Aged Out N o longer eligible based on patient's age to complete this topic Meningococcal B Vacine Aged Out No lo nger eligible based on patient's age to complete this topic RSV Immunization Patients Under 20 months Aged Out No longer eligible based on patient's age to complete this topic Varicella Vaccines Aged Out No longer eligible based on patient's age to complete this topic Care Teams Sewing Machine Maintenance Mechanic Relationship Specialty Start Date End Date Derrick Patel MD [address] [place] [id number] PCP - General 01/10/23
[2024-12-17 14:04] VITALS: BP 120/60; PULSE 58; O2SAT 97; BMI 32.2
--- NOTE | 2024-12-17 14:04 | HO.NEPHOV_ITS ---
Vital Signs 12/17/24 14:04 Height 5 ft 10 in Weight 224 lb 2 oz BMI 32.2 BP 120/60 Blood Pressure Location Rt brachial Position Sitting Pulse 58 Pulse Source Pulse Oximeter Pulse Oximetry (%) 97 Oxygen Delivery Method Room Air Intake Visit Reasons: 3mon follow up w/labs/ Conf Manager Quantitative Required: No Accompanied by: Self / Same As Patient Allergies amlodipine Allergy (Intermediate, Verified 12/17/24 14:04) tinnitis chlorthalidone Adverse Reaction (Intermediate, Verified 12/17/24 14:04) dehydration erythromycin base Adverse Reaction (Intermediate, Verified 12/17/24 14:04) Gastrointestinal Upset lisinopril Adverse Reaction (Intermediate, Verified 12/17/24 14:04) Cough HPI Comments Details: Ha was seen in follow-up of his chronic kidney disease. He is known to have vascular disease. In the past he had undergone cardiac surgery. Recently he had to undergo cardiac catheterization and PCI.His blood pressure is better controlled. He does not have any gout attacks. He remains on Plavix. His blood sugar control is reasonable. He is tolerating angiotensin receptor jay. His volume status is optimal on current dose of diuretics. He denies any chest pain, shortness of breath, paroxysmal nocturnal dyspnea, orthopnea, orthostatic symptoms. He tries to avoid nonsteroidal anti-inflammatories. He is on Jardiance [facility] Medical History (Updated 03/17/24 @ 13:57 by Braden Gillis MD) On beta jay at home Carotid stenosis CAD (coronary artery disease) CKD (chronic kidney disease), stage III KATI treated with BiPAP COVID-19 vaccine administered Arthritis Diabetes GERD (gastroesophageal reflux disease) Depression Sleep apnea Hx of aortic valve stenosis Elevated cholesterol HTN (hypertension) Surgical History Hx of five vessel coronary artery bypass History of bilateral cataract extraction Status post cardiac revascularization with bypass aortocoronary anastomosis of five coronary vessels History of esophagogastroduodenoscopy (EGD) H/O colonoscopy History of carpal tunnel release Social History Household Members Other:: lives with Are you a primary client care coordinator to a significant other at home: No Do you presently have visiting nurse or other home services: No Alcohol intake: current Patient Tobacco Use Status: Former Tobacco user Tobacco use type: Cigar Current occupational status: retired Current occupation: [employer] Review of Systems Const All systems reviewed & are unremarkable except as noted in HPI and below Physical Exam Vital Signs: Last Vital Signs Pulse 58 12/17/24 14:04 BP 120/60 12/17/24 14:04 Pulse Ox 97 12/17/24 14:04 Oxygen Delivery Method Room Air 12/17/24 14:04 BMI result Body Mass Index 32.2 Const General: comfortable and no acute distress Orientation/consciousness: patient oriented x3 HEENT Head: Yes normocephalic Mouth: Normal oral and palatal mucosa present Eyes EOM: EOMs intact bilaterally Neck Neck: Yes supple Resp Auscultation: clear to auscultation bilaterally Cardio Jugular venous distension: no JVD Rate: regular rate GI Palpation (GI): Soft to palpation Auscultation: normal bowel sounds General: Yes no CVA tenderness Back/Spine/Pelvis Back: no CVA tenderness Skin General skin exam: no rashes or lesions noted Neuro General: patient oriented x3 and moves all extremities Extrem General: Yes no pedal edema Results Reviewed Nephrology Results: No Data to Display Assessment & Plan Assessment & Plan (1) CKD (chronic kidney disease), stage III: Code(s): N18.30 - Chronic kidney disease, stage 3 unspecified Category: Medical Qualifiers: Chronic kidney disease stage 3 subtype: stage 3a (GFR 45-59) Qualified Code(s): N18.31 - Chronic kidney disease, stage 3a (2) HTN (hypertension): Code(s): I10 - Essential (primary) hypertension Category: Medical Qualifiers: Hypertension type: primary hypertension Qualified Code(s): I10 - Essential (primary) hypertension Plan Ha is known to have chronic kidney disease from vascular disease. He is diabetic and hypertensive. He had multiple coronary interventions. He is on s tatins. He is on SGLT2 inhibitor. He is tolerating angiotensin receptor jay. He avoids NSAIDs. He should maintain low-sodium diet and should lose weight. He is on statins. He may need NaHCO3. I did not make any medication changes today. Further management is pending evolving data Orders: Orders Creatinine 3 Months I10 - Essential (primary) hypertension, N18.31 - Chronic kidney disease, stage 3a Blood Urea Nitrogen 3 Months I10 - Essential (primary) hypertension, N18.31 - Chronic kidney disease, stage 3a Electrolytes 3 Months I10 - Essential (primary) hypertension, N18.31 - Chronic kidney disease, stage 3a Coding Level of Care Code Est Pt Level 4 (21302) Diagnoses Stage 3a chronic kidney disease N18.31 Chronic kidney disease stage 3 subtype: stage 3a (GFR 45-59) Primary hypertension I10 Hypertension type: primary hypertension
== END 2024-12-17 14:19 | disposition home or self-care (01) ==
PROVIDERS: PCP Family Medicine; Visit Provider Internal Medicine Nephrology
DX: N18.31 Chronic kidney disease, stage 3a (principal); I10 Essential (primary) hypertension
CPT/HCPCS: 99214

== ENCOUNTER → 2024-12-17 13:58 | Outpatient (BNVA) | payer MEDICARE, BC, SELFPAY ==
[2022-01-22 07:26] VITALS: BP 118/64; BP 152/70; BP 180/92; BMI 31.6
== END ==
PROVIDERS: PCP Family Medicine; Visit Provider Internal Medicine Nephrology
DX: I12.9 Hypertensive chronic kidney disease with stage 1 through stage 4 chronic kidney disease, or unspecified chronic kidney disease (principal); N18.31 Chronic kidney disease, stage 3a
CPT/HCPCS: 99212

== ENCOUNTER 2025-03-18 13:54 | Outpatient (AMB) | payer MEDICARE, BC, SELFPAY ==
[2022-01-22 07:26] VITALS: BP 118/64; BP 152/70; BP 180/92; BMI 31.6
--- OUTSIDE RECORDS SUMMARY | 2025-03-18 13:57 | XMS_ITS | Clinical Summary ---
Author Organization [facility] Address [address] [place] [address] Phone Care Team Providers Care Manager Basketball Name Role Phone Derrick Patel MD Primary Care Provider +1- [phone] Allergies Active Allergy Reactions Criticality Noted Date [...] 08/07/2021 01/30/2022 Atherosclerotic heart diseas e of [place] coronary artery with angina pectoris, not otherwise specified 08/01/2021 01/30/2022 Aortic valve stenosis 07/14/20172021 Immunizations Immunization Administration Dates Next Due H1N1 Inj 11/01/2009 [...] Diabetes: Visual Foot Exam 07/31/2022 Influenza Vaccine (Season Ended) 2025 09/02/2022, 07/12/2020, 07/26/2019, Additional history exists Colorectal Cancer Screening: Colonoscopy 01/16/2033 01/16/2023 Pneumococcal Vaccine: 50+ Years Completed 01/22/2019, 06/23/2017, 11/26/2006 Pneumococcal Vaccine: Peds (0 to 5 Years) and At-Risk Patients (6 to 49 Years) Discontinued 01/22/2019, 06/23/2017, 11/26/2006 Hepatitis B Vaccine Aged [...] 10.7 mg/dL Phosphorus, Serum 3.8 eGFR Non-Afr Burmese 47 Hemoglobin A1C 6.3(A) 4.0 - 6.0 Alb/Creat Ratio, Ur 41.9 mg/g Creat Microalbumin Urine Random (External Result Entry) 86.6 Triglycerides 282(A) 40 - 160 Cholesterol 153 0 - 200 HDL 35 35 - 70 MG/DL LDL Calculated 62 0 - 160 mg/dL 01/25/2022 Historical Provider LAB BLOOD ORDERABLES Madelyn l Result from Last 3 Months or Most Recently Relevant to Health Maintenance Insurance [facility] Medicare [facility] Medicare Care Teams Manager Basketball Relationship Specialty Start Date End Date Leombruno, Derrick R, MD [facility] [address] [place] [address] PCP - General Family Medicine 01/22/23
--- OUTSIDE RECORDS SUMMARY | 2025-03-18 13:57 | XMS_ITS | Encounter Summary ---
Author Organization [facility] Address [address] [facility] [address] [place] [address] Phone Care Team Providers Care Pick And Shovel Man Name Role Phone Derrick Patel MD Primary Care Provider +1- [phone] Encounter Details Date Type Department Care Team (Late st Contact Info) Description 03/07/2021 Documentation Only [facility] [address] [facility] [address] [place] [id number] Adriana Lyle [place] Social History Tobacco Use [...] on filedocumented in this encounter Care Teams Pick And Shovel Man Relationship Specialty Start Date End Date Derrick Patel MD [address] [place], [place] [address] [place] [phone] PCP - General Family Medicine 01/22/23 documented as of this encounter
--- OUTSIDE RECORDS SUMMARY | 2025-03-18 13:57 | XMS_ITS | Clinical Summary ---
Author Organization [facility] Address [address] [place] [address] Phone Care Team Providers Care Cotton Ball Bagger Name Role Phone Derrick Patel MD Primary Care Provider [phone] Allergies Active Allergy Reactions Criticality Noted Date Comments Amlodipine 10/30/2021 Chlorthalidone 10/30/2021 Empagliflozin Other 06/06/2022 Erythromycin 10/30/2021 Lisinopril 10/30/2021 Medications clopidogreL (PLAVIX) 75 mg tablet TAKE 1 TABLET BY MOUTH DAILY 90 tablet 2 11/30/19 25 Active allopurinoL (ZYLOPRIM) 300 mg tablet Take 1 tablet (300 mg total) by mouth 1 (one) time each day. Active aspirin 81 mg EC tablet Take 1 tablet (81 mg total) by mouth 1 (one) time each day. Active B complex tablet Take 1 tablet by mouth daily. Active cetirizine (ZyrTEC) 10 mg capsule Take 1 capsule (10 mg total) by mouth 2 (two) times a day. Active cholecalciferol (VITAMIN D-3) 25 mcg (1,000 unit) capsule Take 1 capsule (1,000 Units total) by mouth 1 (one) time each day. Active empagliflozin (Jardiance) 10 mg tablet Take 1 tablet (10 mg total) by mouth 1 (one) time each day. Active glipiZIDE (GLUCOTROL) 10 mg tablet Take 1 tablet (10 mg total) by mouth 1 (one) time each day. Active hydrALAZINE (APRESOLINE) 100 mg tablet Take 1 tablet by mouth 3 times daily. Active ketoconazole (NIZORAL) 2 % cream Apply 1 Applicator topically daily. Active losartan (COZAAR) 100 mg tablet Take 1 tablet (100 mg total) by mouth 1 (one) time each day. Active omeprazole (PriLOSEC) [address] capsule Take 1 capsule (20 mg total) by mouth 1 (one) time each day. Active pravastatin (PRAVACHOL) 80 mg tablet Take 1 tablet (80 mg total) by mouth 1 (one) time each day. Active tamsulosin (FLOMAX) 0.4 mg 24 hr capsule Take 1 capsule by mouth daily. Take 30 mins after same meal every day. Active cilostazoL (PLETAL) 50 mg tablet TAKE 1 TABLET BY MOUTH TWICE DAILY 180 tablet 3 01/14/20 25 Active metoprolol tartrate (LOPRESSOR) 50 mg tablet TAKE 1 TABLET(50 MG) BY MOUTH TWICE DAILY 180 tablet 3 03/03/20 25 Active isosorbide mononitrate (IMDUR) 30 mg 24 hr tablet TAKE 1 TABLET BY MOUTH DAILY 90 tablet 3 03/17/20 25 Active metoprolol tartrate (LOPRESSOR) 50 mg tablet Take 1 tablet (50 mg total) by mouth 2 (two) times a day. 180 tablet 1 11/29/19 25 025 Discontinued isosorbide mononitrate (IMDUR) 30 mg 24 hr tablet TAKE 1 TABLET BY MOUTH DAILY 90 tablet 1 12/10/19 25 025 Discontinued Active Problems Problem Noted Date Diagnosed Date Essential hypertension 04/22/2024 Assessment & Plan (01/10/2025 4:05 PM EDT): Blood pressure is well-controlled today, continue on current antihypertensive medication regimen. I have reviewed with the patient the importance of a heart healthy lifestyle which includes eating a low-fat low-salt diet, getting regular exercise, maintaining a healthy weight, not smoking, and following up with routine medical care. CKD (chronic kidney disease) stage 3, GFR 30-59 ml/min ([facility] V24, [facility] V28) 09/29/2023 PVD (peripheral vascular disease) ([facility] V24) 07/18/2023 Assessment & Plan (01/10/2025 4:05 PM EDT): Continue on cilostazol as ordered as well as aspirin and statin. Continue daily walking as tolerated. 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 Last Assessment & Plan: The patient has a history of urgent 5 vessel CABG in August 2021 after experienced progressive exertional chest tightness and shortness of breath. At the time of this CABG, serial troponins were drawn and were negative and nuclear stress just showed no significant fixed or reversible defects with normal TID ratio. He was seen by Dr. Hawthorne on 04/2023 reporting ongoing shortness of breath and chest tightness for which he underwent cardiac PET stress testing on 06/05/2023 revealing a small sized mild intensity reversible defect in the basal inferior lateral region. He underwent cardiac catheterization on 06/24/2023 revealing significant disease involving the antegrade limb of PDA after the SVG touchdown. The retrograde limb of the PDA is patent which provides collateral to RPLs. Stenting of the antegrade limb from the touchdown would jeopardize that retrograde limb and hence was not intervened upon. He was also found to have severe stenosis at the distal left main coronary artery involving the ostium of the LCx; however, it was unclear if this was causing his symptoms or not. The patient was not taking his Imdur as prescribed at the time of catheterization; he was only taking metoprolol. Given that amlodipine was listed as an allergy, he was counseled to take Imdur regularly in addition to metoprolol and if symptoms persisted despite maximizing antianginal therapy, staged PCI of the left main coronary artery to left circumflex would need to be considered. Since today with somewhat of an unclear response. He reports that his symptoms are overall unchanged since having a cardiac catheterization completed; he reports ongoing shortness of breath with exertion however does not endorse any chest pain or pressure. He denies any chest tightness or discomfort. He no longer has right lower extremity pain with activity after having angioplasty of the right popliteal artery completed in 08/21/2023; he reports that claudication type symptoms in his left lower extremity are now limiting his ability to be active. He reports that he will only be able to walk for approximately 75 to 100 feet before he experiences pain in his left calf which then resolves with rest. Interestingly, lower extremity arterial duplex on 06/20/2023 revealed no significant stenosis on the left side. Overall, the patient is unable to exert himself significantly secondary to left lower extremity pain with exertion, and as such it is unclear if shortness of breath is related to anginal symptoms in the absence of any chest discomfort. The patient does have a significant history of smoking with a 40+ pack year history of cigarette smoking which he quit at age 29; however, he continues to smoke on a daily basis. He has remained relatively sedentary given symptoms related to his history of peripheral vascular disease and coronary artery disease, and is therefore very deconditioned. It is unclear to me at this time whether he would benefit from PCI of the left main coronary artery to left circumflex as previously suggested by Dr. Dial given the findings of severe stenosis in the distal left main coronary artery involving the ostium of the left circumflex on cardiac catheterization in June 2023. His shortness of breath may have origins underlying pulmonary disease or may be related to significant deconditioning. As such, I will review this patient's presentation with Dr. Dial to ongoing plan for this patient. I did discuss this with the patient and his , both of which are agreeable to this. Continue with goal-directed medical therapies including beta-blockade, nitrates, hydralazine, ARB, DAPT with Plavix and ASA, and statin. Patient advised to seek emergency medical attention by calling 911 if they were to develop severe dyspnea, chest pain that did not resolve with rest, or i f they were to faint. Assessment & Plan (01/10/2025 4:05 PM EDT): Patient with history of coronary artery disease s/p previous CABG and stenting. No worsening chest discomfort or new symptoms at this time. He denies exertional symptoms. Will continue to monitor. He continues on aspirin, Plavix, statin and beta-jay. Patient advised to seek emergency medical attention by calling 911 if they were to develop severe dyspnea, chest pain that did not resolve with rest or nitroglycerin, or if they were to faint. Orders: Transthoracic echocardiogram (TTE) complete with PRN contrast, bubble, strain, and 3D order panel; Future perflutren lipid microsphere (DEFINITY) 1.3 mL in sodium chloride 0.9% 8.7 mL injection Aortic stenosis 10/29/2021 Overview (01/03/2025): Mild aortic stenosis with peak/mean gradient of 32.95/19 mmHg August 2021 at [facility] Last Assessment & Plan: On cardiac catheterization 06/24/2023, the patient was noted to have mean gradient across the Aortic valve of 25 mmHg, indicating mild aortic stenosis. Echocardiogram completed 02/20/2023 showed mild-moderate aortic stenosis. The patient is noted to have ongoing symptoms of shortness of breath with exertion; however the underlying cause of this does not appear to be due to progressive aortic stenosis. We will continue periodic surveillance with serial imaging for further evaluation of this as needed. Assessment & Plan (01/10/2025 4:05 PM EDT): Patient has history of moderate aortic stenosis. He is feeling more tired lately, will update echocardiogram to assess for progression of aortic stenosis. Orders: Transthoracic echocardiogram (TTE) complete with PRN contrast, bubble, strain, and 3D order panel; Future perflutren lipid microsphere (DEFINITY) 1.3 mL in sodium chloride 0.9% 8.7 mL injection Carotid stenosis 10/29/2021 Overview (01/03/2025): Last Assessment & Plan: The patient's most recent carotid duplex is noted from 2019 feeling 1 to 49% stenosis in bilateral internal carotid arteries with stenosis on the left side being at the upper limits of this range. On exam today, there is a carotid bruit noted louder on the right than the left; some of this may be attributed to murmur of aortic stenosis that may be referring to the right neck. However, it has been quite sometime since the patient has had his last duplex completed; as such we will repeat this for further evaluation of underlying carotid stenosis. Hyperlipidemia 10/29/2021 Overview (01/03/2025): Last Assessment & Plan: Patient's last lipid panel was completed 01/20/2023 with LDL at goal of less than 70; we will make no changes to current medical therapies. Assessment & Plan (01/10/2025 4:05 PM EDT): Continue on pravastatin 80 mg daily. Recent lipid panel from May 2024 showing an LDL level of 52 which is within his goal range of less than 70. His triglycerides were elevated and counseled to continue working on dietary changes. Benign essential hypertension 10/29/2021 Overview (01/03/2025): Last Assessment & Plan: The patient's blood pressure is well controlled on current medical therapies; he reports compliance with isosorbide, torsemide, metoprolol, hydralazine, and losartan. Renal function remains stable as of last check 08/14/2023. We will make no changes today. Encounters Date Type Department Care Team Description 03/10/2025 Telephone [facility] Cardiology [facility] [address] [place] [phone] Jaguar Hawthorne MD Med Refill 02/07/2025 1:00 PM EDT Ancillary Procedure [facility] Cardiology [facility] [address] [place] [phone] Palpitations 01/10/2025 1:10 PM EDT Office Visit [facility] Cardiology [facility] - [address] [place] [phone] Mary Davalos NP Coronary artery disease of te[place]mo[place] artery of te[place]moak heart with stable angina pectoris (CMS/HCC V24) (Primary Dx); Aortic valve stenosis, etiology of cardiac valve disease unspecified; Palpitations; PVD (peripheral vascular disease) (CMS/HCC V24); Essential hypertension; Hyperlipidemia, unspecified hyperlipidemia type; Aortic aneurysm without rupture, unspecified portion of aorta (CMS/HCC V24) from Last 3 Months Immunizations Name Administration [...] pelvis abnormal OTHER SURGICAL HISTORY 02/04/2021 PROCEDURE: MI ECG ROUTINE ECG W/LEAST 12 LDS W/I&R; COMMENT: sinusarrythmia OTHER SURGICAL HISTORY 02/04/2021 PROCEDURE: HISTORY OTHER; COMMENT: US scan of gallbladder OTHER SURGICAL HISTORY 01/18/2021 PROCEDURE: ECHOCARDIOGRAM WITH CONTRAST (DEFINITY); COMMENT: mild ef 55% OTHER SURGICAL HISTORY 01/08/2021 PROCEDURE: MI DOPPLER ECHOCARD PULSE WAVE W/SPECTRAL DISPLAY; COMMENT: [...] W/STENT PLCMT OTHER SURGICAL HISTORY 04/20/2012 PROCEDURE: MI ECG ROUTINE ECG W/LEAST 12 LDS W/I&R [...] 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..] Not Answered Alcohol Use Standard Drinks/Week Comments Yes 0 (1 standard drink = 0.6 oz pur e alcohol) Sex and Gender Information Value Date Recorded Sex Assigned at Not on file Legal Sex Male 1:14 AM EST Gender Identity Not on file Sexual Orientation Not on file Obstetrics History Last Filed Vital Signs Vital Sign Reading Time Taken Comments Blood Pressure 120/72 01/10/2025 1:05 PM EDT Pulse 75 01/10/2025 1:05 PM EDT Temperature - - Respiratory Rate - - Oxygen Saturation 98% 01/10/2025 1:05 PM EDT Inhaled Oxygen Concentration - - Weight 100 kg (221 lb) 01/10/2025 1:05 PM EDT Height 177.8 cm (5' 10 ) 01/10/2025 1:05 PM EDT Body Mass Index 31.71 01/10/2025 1:05 PM EDT Plan of Treatment Upcoming Encounters Date Type Department Care Team (Late st Contact Info) Description 03/22/2025 3:30 PM EDT Ancillary Procedure [facility] Cardiology [facility] [address] [place] [address] 04/21/2025 2:10 PM EDT Office Visit [facility] Cardiology [facility] [address] [place] [phone] Rafia Arellano NP [address] [place] [phone] Health Maintenance Due Date Last Done Comments Diabetes: Annual Foot Exam 1962 Diabetes: Annual Retina Eye Exam 1962 RSV Immunization Adult Patients (1 - Risk 60-74 years 1-dose series) 2012 DTaP,Tdap,and Td Vaccines (3 - Td or Tdap) 08/03/2022 08/03/2012, 11/26/2006 Abdominal Aortic Aneurysm (AAA) Screen 10/13/2022 Colorectal Cancer Screening: Colonoscopy 10/13/2022 Depression Screening 10/13/2022 Falls Risk Assessment 10/13/2022 Hepatitis C Screening 10/13/2022 Social Influencers of Health Screening 10/13/2022 Medicare Annual Wellness Visit 05/02/2023 05/02/2022 COVID-19 Vaccine ( season) 2024 09/20/2021, 02/23/2021, 01/26/2021, Additional history exists Diabetes: Annual Urine Albumin-Creatinine Ratio (uACR) 01/10/2025 Diabetes: Blood Sugar Control Test (HGBA1C) 01/10/2025 Diabetes: Annual GFR (Glomerular Filtration Rate) 06/07/2025 06/07/2024, 06/07/2024, 06/01/2024 Hypertension/CHF/CAD Annual BMP Blood Test 06/07/2025 06/07/2024, 06/07/2024, 06/01/2024 Cholesterol Screening (Lipid Panel) 06/01/2029 06/01/2024, 06/01/2024 Pneumococcal Vaccine: 50+ Years Completed 01/22/2019, 06/23/2017, 11/26/2006 Zoster Vaccines Completed 05/07/2019, 02/01, 11/13/2012 Influenza Vaccine Completed 09/01/2024, , 09/02/2022, Additional history exists HIB Vaccines Aged Out No longer eligi [...] age to complete this topic Meningococcal B Vaccine Aged Out No l onger eligible based on patient's age to complete this topic RSV Immunization Patients Under 20 months Aged Out No longer eligible based on patient's age to complete this topic Varicella Vaccines Aged Out No longer eligible based on patient's age to complete this topic Procedures Procedure Name Priority Date/Time Associated Diagnosis Comments CARDIAC HOLTER MONITOR (REPORT GENERATED IN HOUSE) Routine 02/07/2025 1:01 PM EDT Palpitations ANNUAL BMP BLOOD TEST Routine 06/07/2024 LIPID PANEL Routine 06/01/2024 from Last 3 Months or Most Recently Relevant to Health Maintenance Results * CARDIAC HOLTER MONITOR (REPORT GENERATED IN HOUSE) (02/07/2025 1:01 PM EDT) Anatomical Region Laterality Modality Cardiac Diagnost ic Narrative 02/12/2025 12:58 PM EDT [facility] DIAGNOSTIC TESTING DEPARTMENT [address] [place] [address], [address] [address] TEL: FAX: Type of test: ??48 hour Holter Monitor Date of test: ??02/07/25 Ordering provider: ??Mary Davalos NP Reason for Test: Palpitations Impression: 1: Normal Sinus Rhythm with Sinus Bradycardia and Sinus Arrhythmia. 2: Heart rate range was 44- 104 bpm with an average of 67 bpm. Total time in Sinus Bradycardia was 14 hrs 28 mins. 3: Frequent PACs, occasional atrial pairs and atrial bi/trigeminy, and one 5-beat atrial run. Occasional PVCs with a few couplets. 4: No pauses noted. Longest R-R 1.6 sec. 5: Diary returned with one episode of SOB. EKG at that time showed Sinus Bradycardia at 58 bpm with isolated PACs. Mary Davalos NP [facility] PROCEDURES Final Result * Annual BMP Blood Test (06/07/2024) Pathologist [facility] Annual BMP Blood Test abstracted Historical Provider HEALTH MAINTENANCE Final Result * (ABNORMAL) Lipid panel (06/01/2024) Pathologist [facility] LDL/HDL Ratio 3 0 - 4 Triglycerides 254(A) 0 - 150 mg/dL Cholesterol 145 0 - 200 mg/dL HDL 43 >=40 mg/dL LDL Cholesterol 52 0 - 100 mg/dL Blood Venous blood specimen / Unknown us Historical Provider LAB BLOOD ORDERABLES Madelyn l Result from Last 3 Months or Most Recently Relevant to Health Maintenance Insurance * Guarantor: Ha Melton Account Type Relation to Patient Date of Phone Billing Address Personal/Family Self [address] [place] [id number] MEDICARE [facility] Member Subscriber Plan / Payer ( fective 2024-Present) Name:Ha Melton Relation to Subscriber:Self Name:Ha Melton Payer ID:[id number] Group ID:[id number] Type:Not on file Address: [facility] [address] [place] [address] Care Teams Cotton Ball Bagger Relationship Specialty Start Date End Date Derrick Patel MD [facility] [address] [place] [id number] PCP - General 01/10/23
--- NOTE | 2025-03-18 14:00 | HO.NEPHOV ---
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 He is known to have vascular disease. In the past he had undergone cardiac surgery and later cardiac catheterization and PCI.His blood pressure is better controlled. By a recent Holter monitor recently he apparently has an arrythmia. He does not have any gout attacks. He remains on Plavix. His blood sugar control is reasonable. He is tolerating angiotensin receptor jay. His volume status is optimal on current dose of diuretics. He denies any chest pain, shortness of breath, paroxysmal nocturnal dyspnea, orthopnea, orthostatic symptoms. He tries to avoid nonsteroidal anti-inflammatories. He is on Jardiance [facility] Medical History (Updated 03/18/25 @ 14:25 by Braden Gillis MD) On beta jay at home Carotid stenosis CAD (coronary artery disease) CKD (chronic kidney disease), stage III KATI treated with BiPAP COVID-19 vaccine administered Arthritis Diabetes GERD (gastroesophageal reflux disease) Depression Sleep apnea Hx of aortic valve stenosis Elevated cholesterol HTN (hypertension) Surgical History Hx of five vessel coronary artery bypass History of bilateral cataract extraction Status post cardiac revascularization with bypass aortocoronary anastomosis of five coronary vessels History of esophagogastroduodenoscopy (EGD) H/O colonoscopy History of carpal tunnel release Social History Household Members Other:: lives with Are you a primary child care development specialist to a significant other at home: No Do you presently have visiting nurse or other home services: No Alcohol intake: current Patient Tobacco Use Status: Former Tobacco user Tobacco use type: Cigar Current occupational status: retired Current occupation: [employer] Review of Systems Const All systems reviewed & are unremarkable except as noted in HPI and below Physical Exam Vital Signs: Last Vital Signs Pulse 50 03/18/25 14:01 BP 118/70 03/18/25 14:01 Pulse Ox 96 03/18/25 14:01 Oxygen Delivery Method Room Air 03/18/25 14:01 BMI result Body Mass Index 31.7 Const General: comfortable and no acute distress Orientation/consciousness: patient oriented x3 HEENT Head: Yes normocephalic Mouth: Normal oral and palatal mucosa present Eyes EOM: EOMs intact bilaterally Neck Neck: Yes supple Resp Auscultation: clear to auscultation bilaterally Cardio Jugular venous distension: no JVD Rate: regular rate GI Palpation (GI): Soft to palpation Auscultation: normal bowel sounds General: Yes no CVA tenderness Back/Spine/Pelvis Back: no CVA tenderness Skin General skin exam: no rashes or lesions noted Neuro General: patient oriented x3 and moves all extremities Extrem General: Yes no pedal edema Results Reviewed Nephrology Results: No Data to Display Assessment & Plan Assessment & Plan (1) CKD (chronic kidney disease), stage III: Code(s): N18.30 - Chronic kidney disease, stage 3 unspecified Category: Medical Qualifiers: Chronic kidney disease stage 3 subtype: stage 3a (GFR 45-59) Qualified Code(s): N18.31 - Chronic kidney disease, stage 3a (2) HTN (hypertension): Code(s): I10 - Essential (primary) hypertension Category: Medical Qualifiers: Hypertension type: primary hypertension Qualified Code(s): I10 - Essential (primary) hypertension (3) Metabolic acidosis: Code(s): E87.20 - Acidosis, unspecified Category: Medical Plan Ha is known to have chronic kidney disease from vascular disease. He is diabetic and hypertensive. He had multiple coronary interventions. He is on statins. He is on SGLT2 inhibitor. He is tolerating angiotensin receptor jay. He avoids NSAIDs. He should maintain low-sodium diet and should lose weight. He is on statins. I started him on PO NaHCO3 650 mg daily. ( He is on Farxiga & has acidosis). I did not make any other medication changes today. Further management is pending evolving data Orders: Orders Electrolytes 8 Weeks E87.20 - Acidosis, unspecified, I10 - Essential (primary) hypertension, N18.31 - Chronic kidney disease, stage 3a Creatinine 8 Weeks E87.20 - Acidosis, unspecified, I10 - Essential (primary) hypertension, N18.31 - Chronic kidney disease, stage 3a Blood Urea Nitrogen 8 Weeks E87.20 - Acidosis, unspecified, I10 - Essential (primary) hypertension, N18.31 - Chronic kidney disease, stage 3a Medications: New sodium bicarbonate 650 mg PO DAILY 30 days 30 tabs 3RF Coding Level of Care Code Est Pt Level 4 (31595) Diagnoses Stage 3a chronic kidney disease N18.31 Chronic kidney disease stage 3 subtype: stage 3a (GFR 45-59) Primary hypertension I10 Hypertension type: primary hypertension Metabolic acidosis E87.20
[2025-03-18 14:01] VITALS: BP 118/70; PULSE 50; O2SAT 96; BMI 31.7
== END 2025-03-18 14:37 | disposition home or self-care (01) ==
LOC: HO.HKA 13:55
PROVIDERS: PCP Family Medicine; Visit Provider Internal Medicine Nephrology
DX: N18.31 Chronic kidney disease, stage 3a (principal); I10 Essential (primary) hypertension; E87.20 Acidosis, unspecified
CPT/HCPCS: 99214

== ENCOUNTER → 2025-03-18 13:54 | Outpatient (BNVA) | payer MEDICARE, BC, SELFPAY ==
[2022-01-22 07:26] VITALS: BP 118/64; BP 152/70; BP 180/92; BMI 31.6
== END ==
PROVIDERS: PCP Family Medicine; Visit Provider Internal Medicine Nephrology
DX: I12.9 Hypertensive chronic kidney disease with stage 1 through stage 4 chronic kidney disease, or unspecified chronic kidney disease (principal); N18.31 Chronic kidney disease, stage 3a; E87.20 Acidosis, unspecified
CPT/HCPCS: 99212

== ENCOUNTER 2025-04-27 14:49 | Outpatient (REF) | payer MEDICARE, BC, SELFPAY ==
[2022-01-22 07:26] VITALS: BP 118/64; BP 152/70; BP 180/92; BMI 31.6
[2025-04-27 16:23] LABS: MANUAL DIFF FLAG NO
[2025-04-27 16:27] LABS: Basophils Absolute Auto 0.1 X10*3/uL (0.0-0.2); Basophils Percent Auto 0.9 % (0-2); Eosinophils Absolute Auto 0.2 X10*3/uL (0.0-0.4); Eosinophils Percent Auto 2.9 % (0-4); Hematocrit 47.4 % (42.0-52.0); Hemoglobin 16.4 g/dl (14.0-18.0); Imm Gran Abs Auto 0.04 X10*3/uL (0.00-0.03); Imm Gran Pct Auto 0.5 % (0.0-0.4); Lymphocytes Absolute Auto 1.3 X10*3/uL (1.2-4.9); Lymphocytes Percent Auto 15.5 % (20-40); Mean Corpuscular HGB Conc 34.6 g/dl (31.0-36.0); Mean Corpuscular Hemoglobin 33.7 pg (27.0-33.0); Mean Corpuscular Volume 97.5 fL (80.0-98.0); Mean Platelet Volume 9.6 fL (9.4-12.4); Monocytes Absolute Auto 0.7 X10*3/uL (0.1-1.2); Monocytes Percent Auto 8.4 % (2-11); Neutrophils Absolute Auto 5.9 x10*3/uL (2.0-8.3); Neutrophils Percent Auto 71.8 % (45-73); Platelet Count 242 X10*3/uL (160-400); Red Blood Count 4.86 X10*6/uL (4.60-5.80); Red Cell Distribution Width 13.5 % (11.0-16.0); White Blood Count 8.2 X10*3/uL (4.8-10.8)
[2025-04-27 16:34] LABS: Anion Gap 13 (12-20); Blood Urea Nitrogen 21 mg/dL (9-16); Calcium 9.9 mg/dL (8.4-10.2); Carbon Dioxide 24 mmol/L (22-29); Chloride 109 mmol/L (96-108); Estimated Glomerular Filt Rate 37; Glucose Random 151 mg/dL (60-115); Potassium 4.3 mmol/L (3.3-5.1); Sodium 142 mmol/L (135-145)
--- OUTSIDE RECORDS SUMMARY | 2025-04-27 17:44 | XMS_ITS | Encounter Summary ---
Author Organization [facility] Address [address] [place] [address] Care Team Providers Care Cardiac Technician Name Role Phone Derrick Patel MD Primary Care Provider +1- [phone] Reason for Visit * Reason Onset Date Comments hospital procedure 04/22/2025 cath Encounter Details Date Type Department Care Team (Late st Contact Info) Description 04/22/2025 Telephone [facility] [address] [place] [phone] Rafia Arellano NP [address] [place] [address] hospital procedure (cath) Social History Tobacco Use Types Packs/Day Years Used Date Smoking Tobacco: Every Day Cigars Smokeless Tobacco: Never Alcohol Use Standard Drinks/Week Comments Yes 0 (1 standard drink = 0.6 oz pur e alcohol) qd gin tonic Sex and Gender Information Value Date Recorded Sex Assigned at Not on file Legal Sex Male 1:14 AM EST Gender Identity Not on file Sexual Orientation Not on file documented as of this encounter Progress Notes * Esme Bowden - 04/26/2025 2:41 PM EDT Patient called inquiring about his left heart cath, he was informed auth is pending with insurance.He will be contacted once an approval given he will be contacted by the space scheduler. * Nichole Gonzalez - 04/25/2025 4:55 PM EDT Patient called you back. He will call again in the morning. * Angi Lyle - 04/22/2025 10:07 AM EDT Please obtain PA for L. Heart cath ? PCI 95072 and [address] [facility] with Dr Dial. DX I35.0 Thank You documented in this encounter Plan of Treatment Not on file documented as of this encounter Visit Diagnoses Not on filedocumented in this encounter Care Teams Cardiac Technician Relationship Specialty Start Date End Date Derrick Patel MD [address] [place] [address] PCP - General 01/10/23 documented as of this encounter
== END 2025-04-27 14:50 | disposition home or self-care (01) ==
LOC: HO.HMGCLDS 14:49
PROVIDERS: PCP Family Medicine; Referring Provider Internal Medicine Nephrology; Visit Provider Nurse Practitioner Family
DX: I25.118 Atherosclerotic heart disease of native coronary artery with other forms of angina pectoris (principal)
CPT/HCPCS: 36415; 80048; 85025; 85610

== ENCOUNTER 2025-05-18 13:35 | Outpatient (REF) | payer MEDICARE, BC, SELFPAY ==
[2022-01-22 07:26] VITALS: BP 118/64; BP 152/70; BP 180/92; BMI 31.6
--- OUTSIDE RECORDS SUMMARY | 2025-05-15 23:59 | XMS_ITS | Continuity of Care Document ---
Author Organization [facility] Address [address] [place] [address]- Care Team Providers Care Transmission Supervisor Name Role Phone Amanda GRANDE, Derrick Ayoub Primary Care Physician [phone] Encounter [facility] Date(s): 04/15/25 - 05/15/25 [facility] Adult [address] [place] [address]- Encounter Type: Triage Allergies, Adverse Reactions, Alerts [...] Pneumococcal Vaccine (oldterm) 11/26/06 Given 1Result Comment: [facility]: [id number] Screening checklist reviewed with patient. Negative for any contraindications. 2Result Comment: [facility]STION[facility] COMPLETE 3Result Comment: [06/23/2017] high dose 4Result Comment: [12/19/2016] micah 5Admin Note: GIVEN IN [facility] 6Admin Note: rcvd micah 7Admin Note: [facility] 8Admin Note: per pt rcvd elsewhere Medications allopurinol 300 mg oral tablet 1, tablet, By Mouth, Daily, # 90 tablet, Refills 1, Maintenance, 05/10/25 12:55:00 PM EDT, Route to Pharmacy Electronically, [facility] #[id number], 178, cm, 05/03/25 10:16:00 EDT, Height, 101, kg, 05/03/25 10:16:00 EDT, Dry Weight Start Date: 05/10/25 Status: Ordered Quantity: 90.0 Unit: tablet Repeat number: 1 aspirin 81 mg oral enteric coated tablet [...] capsule, 3 Refills, Maintenance,06/11/24 8:16:00 AM EDT, [id number], Partial fill upon patient request if the [...] 10:21:00 AM EST, Route to Pharmacy Electronically, [facility] #[id number], Partial fill upon patient request if the prescription is for a schedule II opioid drug., 175, cm, 10/15/23 13:43:00 EST, Height, 106.2, kg, 06/24/23 9:13:00 EDT, Dry Weight Start Date: 10/30/23 Status: Ordered Quantity: 90.0 Unit: tablet Repeat number: 4 fluticasone 50 mcg/inh inhalation powder 1 puffs, Inhalation, 2 times a day, # 60 each, 5 Refills, Maintenance, 01/14/25 4:17:00 PM EDT, Powder, [facility] #[id number], Partial fill upon patient request if the prescription is for a schedule II opioid drug., 175, cm, 01/10/25 15:30:00 EDT, Height, 106.2, kg, 06/24/23 9:13:00 EDT, Dry Weight Start Date: 01/14/25 Status: Ordered Quantity: 60.0 Unit: each Repeat number: 6 fluticasone 50 mcg/inh nasal spray 2 sprays, Nasal, Daily, in each nostril use opposite hnad for each nostril, # 16 Gm, 5 Refills, Maintenance, 01/18/25 4:49:00 AM EDT, [facility] #[id number], 2 sprays Nasal Daily,Instr:in each nostril; use opposite hnad for each nostril, 175, cm, 01/10/25 15:30:00 EDT, Height, 106.2, kg, 06/24/23 9:13:00 EDT, Dry Weight Start Date: 01/18/25 Status: Ordered Quantity: 16.0 Unit: g Repeat number: 6 Freestyle Lite Lancets See Instructions, for 30 days, # 200 each, Refills 5, Tot. Refills 5, Hard Stop 07/09/25 4:44:00 PM EDT, use as directed for Type 2 Diabetes Mellitus, 01/10/25 4:44:00 PM EDT, Supply, 175, cm, 01/10/25 15:30:00 EDT, Height, 106.2, kg, 06/24/23 9:13:00 EDT, Dry Weight Start Date: 01/10/25 Stop Date: 07/09/25 Status: Ordered Quantity: 200.0 Unit: each Repeat number: 6 Freestyle Lite Lancets See Instructions, # 200 each, Refills 3, Tot. Refills 3, Maintenance, Test blood sugar twice daily,Dx: E11.9 Type 2 Diabetes Mellitus, 07/09/25 4:44:00 PM EDT, Supply, 175, cm, 01/10/25 15:30:00 EDT, Height, 106.2, kg, 06/24/23 9:13:00 EDT, Dry Weight Start Date: 07/09/25 Stop Date: 11/06/25 Status: Ordered Quantity: 200.0 Unit: each Repeat number: 4 Freestyle Lite Test Strips See Instructions, # 200 each, Refills 3, Tot. Refills 3, Maintenance, Test blood sugar twice daily,Dx: E11.9 Type 2 Diabetes Mellitus, 02/09/25 4:45:00 PM EDT, Supply, 175, cm, 01/10/25 15:30:00 EDT, Height, 106.2, kg, 06/24/23 9:13:00 EDT, Dry Weight Start Date: 02/09/25 Stop Date: 06/09/25 Status: Ordered Quantity: 200.0 Unit: each Repeat number: 4 glipiZIDE 10 mg oral tablet, extended release 1 tablet = 10 mg, By Mouth, Daily, # 90 tablet, 3 Refills, Maintenance, 12/19/23 3:34:00 PM EST, ER Tablet, [facility] #[id number], Partial fill upon patient request if the prescription is for a schedule II opioid drug., 175, cm, 10/15/23 13:43:00 EST, Height, 106.2, kg, 06/24/23 9:13:00 EDT, Dry Weight Start Date: 12/19/23 Status: Ordered Quantity: 90.0 Unit: tablet Repeat number: 4 glipiZIDE 10 mg oral tablet, extended release See Instructions, TAKE 1 TABLET BY MOUTH DAILY, # 90 tablet, 3 Refills, Maintenance, 12/15/24 5:43:00 PM EST, [facility] #[id number], 175, cm, 09/01/24 15:22:00 EDT, Height, 106.2, kg, 06/24/23 9:13:00 EDT, Dry Weight Start Date: 12/15/24 Status: Ordered Quantity: 90.0 Unit: tablet Repeat [...] Refills, Maintenance, 10/31/24 6:06:00 AM EST, Tablet, [facility] #[id number], Partial fill upon patient request if the prescription is for a schedule II opioid drug., 175, cm, 09/01/24 15:22:00 EDT, Height, 106.2, kg, 06/24/23 9:13:00 EDT, Dry Weight Start Date: 10/31/24 Status: Ordered Quantity: 90.0 Unit: tablet Repeat number: 4 losartan 100 mg oral tablet 1 tablet, By Mouth, Daily, # 90 tablet, 3 Refills, Maintenance, 08/02/24 10:05:00 AM EDT, [facility] #[id number], 175, cm, 04/21/24 13:55:00 EDT, Height, 106.2, kg, 06/24/23 9:13:00 EDT, Dry Weight Start Date: 08/02/24 Status: Ordered Quantity: 90.0 Unit: tablet Repeat number: 1 metoprolol 25 mg oral tablet 25 mg, 1, tablet, By Mouth, 2 times a day, # 30 tablet, Refills 1, Tot. Refills 1, Maintenance, 09/04/21 2:21:00 PM EDT, Route to Pharmacy Electronically, [facility] #[id number], Partial fill upon patient request if the prescription is for a schedule II opioid drug., 179, cm, 08/22/21 12:57:00 EDT, Height, 93.8, kg, 08/02/21 12:43:00 EDT, Dry Weight Start Date: 09/04/21 Status: Ordered Quantity: 30.0 Unit: tablet Repeat number: 2 omeprazole 20 mg oral enteric coated capsule 1 capsule, By Mouth, Daily, # 180 capsule, 1 Refills, Maintenance, 05/06/25 8:22:00 AM EDT, [facility] #[id number], 178, cm, 05/03/25 10:16:00 EDT, Height, 101, kg, 05/03/25 10:16:00 EDT, Dry Weight Start Date: 05/06/25 Status: Ordered Quantity: 180.0 Unit: capsule Repeat number: 1 pravastatin 80 mg oral tablet 1 tablet, By Mouth, Daily, # 90 tablet, 1 Refills, Maintenance, 02/08/25 3:24:00 PM EDT, [facility] #[id number], 175, cm, 01/10/25 15:30:00 EDT, Height, 106.2, kg, 06/24/23 9:13:00 EDT, Dry Weight Start Date: 02/08/25 Status: Ordered Quantity: 90.0 Unit: tablet Repeat number: 2 tamsulosin 0.4 mg oral capsule 2, capsule, By Mouth, Daily at bedtime, # 180 capsule, Refills 3, Maintenance, 04/16/25 7:28:00 AM EDT, Route to Pharmacy Electronically, [facility] #[id number], 175, cm, 01/10/25 15:30:00 EDT, Height, 106.2, kg, 06/24/23 9:13:00 EDT, Dry Weight Start Date: 04/16/25 Status: Ordered Quantity: 180.0 Unit: capsule Repeat number: 1 Vitamin B Complex oral [...] 1tubular adenoma in 2013, repeat colonoscopy in 2019 2check 2011 3sees derm 4brother 5EPWORTH zero 6bipap 10/07 7bipap 8podiatry 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 Social History Social History Type Response Smoking Status Cigars or pipes carey y within last 30 days; Interested in cessation: No; Type: Cigars; Tobacco use times per day: 0.5 cigar daily; entered on: 08/22/21 Sex Sex Representation Male (finding) Patient Care team information Care Team Personnel Name: Yolanda Murguia RN Position: [facility] RN Member Role: Primary Care Nurse Name: Braden Gillis MD Position: [facility] Renal MD Member Role: Lifetime Consulting Physician Address: [address] [place] [address] [address] [place] [address]- [place] Telecom: Name: Aysha Haskins RN Position: [facility] RN Member Role: Primary Care Nurse Name: Melinda Romero RN Position: [facility] RN Member Role: Primary Care Nurse Name: Derek Kim RN Position: [facility] RN Member Role: Primary Care Nurse Name: Derrick Patel MD Position: [facility] Physician - Primary Care Member Role: PCP Address: [address] [place] [address]- [place] Telecom: Name: Jaqueline Jefferson RN Position: [facility] RN Member Role: Primary Care Nurse Name: Noel Driscoll MD Position: [facility] Outreach Member Role: Lifetime Consulting Physician Address: [address] [facility] [address] [facility], [place] [address]- [place] Telecom: Name: Jose Eduardo Sales RN Position: [facility] RN Member Role: Primary Care Nurse Name: Ivett Keyes RN Position: [facility] RN Member Role: Primary Care Nurse Name: Radha Pendleton RN Position: [facility] RN Member Role: Primary Care Nurse Name: Mary Barclay RN Position: [facility] Materials Scientist Member Role: Primary Care Nurse Care Team Related Persons Name: LROEN NIK Name: JESUS POWER Name: ALETA POWER Insurance Providers Guarantor name: LAWRENCE POWER Health Plan Information #: 1 Payer: MEDICARE B Payer Identifier: FRANK Member Number: [id number] Group Number: [id number] Subscriber Identifier: [id number] Relationship to Subscriber: self Coverage Type: NA Coverage Verification Date: NA Telecom: Address:
--- OUTSIDE RECORDS SUMMARY | 2025-05-18 14:29 | XMS_ITS | Encounter Summary ---
Author Organization [facility] Address [address] [facility] [address] [place] [address] Phone Care Team Providers Care Ice Skating Instructor Name Role Phone Derrick Patel MD Primary Care Provider +1- [phone] Encounter Details Date Type Department Care Team (Late st Contact Info) Description 03/07/2021 Documentation Only [facility] [address] [facility] [address] [place] [phone] Adriana Lyle MA Social History Tobacco Use [...] on filedocumented in this encounter Care Teams Ice Skating Instructor Relationship Specialty Start Date End Date Derrick Patel MD [address] [place], [place] [address] [place] [phone] PCP - General Family Medicine 01/22/23 documented as of this encounter
--- OUTSIDE RECORDS SUMMARY | 2025-05-18 14:30 | XMS_ITS | Patient Health Record ---
Author Organization [facility] Address [address] [place] [address] Care Team Providers Care Box Inspector Name Role Phone Chela GRANDE, Elvin Primary Care Provider Unava ilable Ciara Arroyo Unavailable [phone] Allergies Allergen (clinical drug ingredient) Drug/Non Drug Allergy documented on EMR Reaction Allergy Type Onset Date Status ibuprofen Advil alopecia Drug Allergy Active Aleve Unknown Drug Allergy Active erythromycin Erythromycin stomach pain Drug Allergy Active Motrin Unknown Drug Allergy Active Reason For Referral No Information Medications Medication SIG (Take, Route, Fr equency, Duration) Notes Start Date End Date Status Allopurinol 300 MG Orally U nknown Losartan Potassium U nknown Chlorthalidone Unkno wn Pravastatin Sodium U nknown Omeprazole Unknown Accu-Chek Sapphire Plus Unknown Tamsulosin HCl Unkno wn metFORMIN HCl Unknow n Problems Problem Type SNOMED Code ICD Code Onset Dates Problem Status W/U Status Risk Notes Problem Pain in limb (01663428) Pain in Limb (729.5) Active confirmed Problem Plantar fasciitis (240656254) Plantar Fasciitis (728.71) Active confirmed Problem Metatarsalgia (67987962) Metatarsalgia (726.70) Active confirmed Problem Myositis (95684400) Myositis (729.1) Active confirmed Problem Type II diabetes mellitus without complication (784826794) Diabetic - NIDDM (250.00) Active confirmed Plan Of Treatment No Information Insurance Providers Payer Name Payer Address Payer Phone Subscriber Number Group Number Insured Name Patient Relationship to Insured Coverage Start Date Coverage End Date [facility] [address] [place] [address] [phone] [id number] Ha Melton Self - patient is the insured Medical (General) History Medical History History ICD Code Back,Hip,and Knee pain Diabetes mellitus Gout Hypertension Neuropathy Reflux Sciatica Sinus conditions Chicken pox Measles Surgical History Surgery Date(Month/Year) carpal tunnel release, bilateral 09/2006 , 10/2006
[2025-05-18 16:44] LABS: Anion Gap 14 (12-20); Blood Urea Nitrogen 19 mg/dL (9-16); Carbon Dioxide 25 mmol/L (22-29); Chloride 103 mmol/L (96-108); Estimated Glomerular Filt Rate 37; Potassium 5.0 mmol/L (3.3-5.1); Sodium 137 mmol/L (135-145)
== END 2025-05-18 13:36 | disposition home or self-care (01) ==
LOC: HO.HMGCLDS 13:35
PROVIDERS: PCP Family Medicine; Referring Provider Nurse Practitioner Family; Visit Provider Internal Medicine Nephrology
DX: I12.9 Hypertensive chronic kidney disease with stage 1 through stage 4 chronic kidney disease, or unspecified chronic kidney disease (principal); N18.31 Chronic kidney disease, stage 3a; E87.20 Acidosis, unspecified
CPT/HCPCS: 36415; 80051; 82565; 84520

== ENCOUNTER 2025-06-24 13:25 | Outpatient (AMB) | payer MEDICARE, BC, SELFPAY ==
[2022-01-22 07:26] VITALS: BP 118/64; BP 152/70; BP 180/92; BMI 31.6
--- OUTSIDE RECORDS SUMMARY | 2025-06-24 13:28 | XMS_ITS | Encounter Summary ---
Author Organization [facility] Address [address] [place] [address] Care Team Providers Care Buffer Chrome Name Role Phone Derrick Patel MD Primary Care Provider +1- [phone] Reason for Visit * Reason Onset Date Comments Med Refill 06/22/2025 Encounter Details Date Type Department Care Team (Late st Contact Info) Description 06/22/2025 Telephone [facility] [address] [place] [address] [place] [address] Hal Dial MD [address] [place] [address] [address] [place] [address] Med Refill Social History Tobacco Use Types [...] Refills Last Filled Start Date End Date isosorbide mononitrate (IMDUR) 30 mg 24 hr tablet Take 1 tablet (30 mg total) by mouth 1 (one) time each day. 90 tablet 3 06/22/2025 documented in this encounter Progress Notes * John Gamble - 06/22/2025 4:22 PM EDT Refill request for isosorbide 30 mg once a day for a 90 day supply and please send to [facility]. documented in this encounter Plan of Treatment Not on file documented as of this encounter Visit Diagnoses Not on filedocumented in this encounter Discontinued Medications Medication Sig Discontinue Reason Start Date End Da te isosorbide mononitrate (IMDUR) 30 mg 24 hr tablet TAKE 1 TABLET BY MOUTH DAILY Reorder 03/17/2025 06/22/2025 documented as of this encounter Care Teams Buffer Chrome Relationship Specialty Start Date End Date Derrick Patel MD [address] [place] [address] PCP - General 01/10/23 documented as of this encounter
--- OUTSIDE RECORDS SUMMARY | 2025-06-24 13:28 | XMS_ITS | Patient Health Record ---
Author Organization [facility] ricardo Johnson[facility]iles Address [address] [facility] [place] [address] Care Team Providers Care Rubber Insulator Name Role Phone Chela GRANDE, Elvin Primary Care Provider Unava ilable Ciara Arroyo Unavailable [phone] Allergies Allergen (clinical drug ingredient) Drug/Non Drug [...] Status Risk Notes Problem Pain in limb (18586482) Pain in Limb (729.5) Active confirmed Problem Plantar fasciitis (257438493) Plantar Fasciitis (728.71) Active confirmed Problem Metatarsalgia (93668637) Metatarsalgia (726.70) Active confirmed Problem Myositis (65407893) Myositis (729.1) Active confirmed Problem Type II diabetes mellitus without complication (951873359) Diabetic - NIDDM (250.00) Active confirmed Plan Of Treatment No Information Insurance Providers Payer Name Payer Address Payer Phone Subscriber Number Group Number Insured Name Patient Relationship to Insured Coverage Start Date Coverage End Date [facility] [address] [place] [address] [phone] [id number] Ha Melton Self - patient is the insured Medical (General) History Medical History History ICD Code Back,Hip,and Knee pain Diabetes mellitus Gout Hypertension Neuropathy Reflux Sciatica Sinus conditions Chicken pox Measles Surgical History Surgery Date(Month/Year) carpal tunnel release, bilateral 09/2006 , 10/2006
--- OUTSIDE RECORDS SUMMARY | 2025-06-24 13:28 | XMS_ITS | Encounter Summary ---
Author Organization [facility] Address [address] [facility] [address] [place] [address] Phone Care Team Providers Care Rip And Groove Machine Operator Name Role Phone Derrick Patel MD Primary Care Provider +1- [phone] Encounter Details Date Type Department Care Team (Late st Contact Info) Description 03/07/2021 Documentation Only [facility] [address] [facility] [address] [place] [phone] Adriana Lyle MA Social History Tobacco Use [...] on filedocumented in this encounter Care Teams Rip And Groove Machine Operator Relationship Specialty Start Date End Date Derrick Patel MD [address] [place], [place] [address] [place] [phone] PCP - General Family Medicine 01/22/23 documented as of this encounter
--- NOTE | 2025-06-24 13:37 | HO.NEPHOV_ITS ---
Vital Signs 06/24/25 13:38 Height 5 ft 10 in Weight 222 lb 8 oz BMI 31.9 BP 100/70 Blood Pressure Location Lt brachial Position Sitting Pulse 93 Pulse Source Pulse Oximeter Pulse Oximetry (%) 96 Oxygen Delivery Method Room Air Intake Visit Reasons: 3mon follow-up w/labs-LVM Weatherization Coordinator Required: No Accompanied by: Self / Same As Patient Allergies amlodipine Allergy (Intermediate, Verified 06/24/25 13:38) tinnitis chlorthalidone Adverse Reaction (Intermediate, Verified 06/24/25 13:38) dehydration erythromycin base Adverse Reaction (Intermediate, Verified 06/24/25 13:38) Gastrointestinal Upset lisinopril Adverse Reaction (Intermediate, Verified 06/24/25 13:38) Cough HPI Comments Details: Ha was seen in follow-up of his chronic kidney disease. He is known to have vascular disease. In the past he had undergone cardiac surgery and later cardiac catheterization and PCI.His blood pressure is better controlled. By a recent Holter monitor recently he apparently has an arrythmia. He does not have any gout attacks. He remains on Plavix. His blood sugar control is reasonable. He is tolerating angiotensin receptor jay. His volume status is optimal on current dose of diuretics. He denies any chest pain, shortness of breath, paroxysmal nocturnal dyspnea, orthopnea, orthostatic symptoms. He tries to avoid nonsteroidal anti-inflammatories. He is on Jardiance. He is due to have TAVR. [facility] Medical History (Updated 03/18/25 @ 14:25 by Braden Gillis MD) On beta jay at home Carotid stenosis CAD (coronary artery disease) CKD (chronic kidney disease), stage III KATI treated with BiPAP COVID-19 vaccine administered Arthritis Diabetes GERD (gastroesophageal reflux disease) Depression Sleep apnea Hx of aortic valve stenosis Elevated cholesterol HTN (hypertension) Surgical History Hx of five vessel coronary artery bypass History of bilateral cataract extraction Status post cardiac revascularization with bypass aortocoronary anastomosis of five coronary vessels History of esophagogastroduodenoscopy (EGD) H/O colonoscopy History of carpal tunnel release Social History Household Members Other:: lives with Are you a primary managed care director to a significant other at home: No Do you presently have visiting nurse or other home services: No Alcohol intake: current Patient Tobacco Use Status: Former Tobacco user Tobacco use type: Cigar Current occupational status: retired Current occupation: [employer] Review of Systems Const All systems reviewed & are unremarkable except as noted in HPI and below Physical Exam Vital Signs: Last Vital Signs Pulse 93 06/24/25 13:38 BP 100/70 06/24/25 13:38 Pulse Ox 96 06/24/25 13:38 Oxygen Delivery Method Room Air 06/24/25 13:38 BMI result Body Mass Index 31.9 Const General: comfortable and no acute distress Orientation/consciousness: patient oriented x3 HEENT Head: Yes normocephalic Mouth: Normal oral and palatal mucosa present Eyes EOM: EOMs intact bilaterally Neck Neck: Yes supple Resp Auscultation: clear to auscultation bilaterally Cardio Jugular venous distension: no JVD Rate: regular rate GI Palpation (GI): Soft to palpation Auscultation: normal bowel sounds General: Yes no CVA tenderness Back/Spine/Pelvis Back: no CVA tenderness Skin General skin exam: no rashes or lesions noted Neuro General: patient oriented x3 and moves all extremities Extrem General: Yes no pedal edema Results Reviewed Nephrology Results: Hgb, (14.0-18.0) 16.4 g/dl 04/27/25 WBC, (4.8-10.8) 8.2 X10*3/uL 04/27/25 Plt Count, (160-400) 242 X10*3/uL 04/27/25 Sodium, (135-145) 137 mmol/L 05/18/25 Potassium, (3.3-5.1) 5.0 mmol/L 05/18/25 Chloride, (96-108) 103 mmol/L 05/18/25 Carbon Dioxide, (22-29) 25 mmol/L 05/18/25 BUN, (9-16) 19 mg/dL H 05/18/25 Creatinine, (0.5-1.4) 1.82 mg/dL H 05/18/25 Calcium, (8.4-10.2) 9.9 mg/dL 04/27/25 Renal US 01/08/21 Assessment & Plan Assessment & Plan (1) HTN (hypertension): Code(s): I10 - Essential (primary) hypertension Category: Medical Qualifiers: Hypertension type: primary hypertension Qualified Code(s): I10 - Essential (primary) hypertension (2) CKD (chronic kidney disease), stage III: Code(s): N18.30 - Chronic kidney disease, stage 3 unspecified Category: Medical Qualifiers: Chronic kidney disease stage 3 subtype: stage 3a (GFR 45-59) Qualified Code(s): N18.31 - Chronic kidney disease, stage 3a Plan Ha is known to have chronic kidney disease from vascular disease. He is diabetic and hypertensive. He had multiple coronary interventions. He is due to have TAVR. He is on statins. He is on SGLT2 inhibitor which I want to increase to 25 mg at next visit . He is tolerating angiotensin receptor jay. He avoids NSAIDs. He should maintain low-sodium diet and should lose weight. He is on statins. He can continue PO NaHCO3 650 mg daily. I did not make any other medication changes today. Further management is pending evolving data Orders: Orders Creatinine 2 Months I10 - Essential (primary) hypertension, N18.31 - Chronic kidney disease, stage 3a Blood Urea Nitrogen 2 Months I10 - Essential (primary) hypertension, N18.31 - Chronic kidney disease, stage 3a Electrolytes 2 Months I10 - Essential (primary) hypertension, N18.31 - Chronic kidney disease, stage 3a Hemoglobin A1c 2 Months I10 - Essential (primary) hypertension, N18.31 - Chronic kidney disease, stage 3a Medications: Changed From hydralazine 75 mg (1.5 x 50 mg) PO TID 90 days 405 tabs 3RF To hydralazine 75 mg (3 x 25 mg) PO TID 810 tabs 3RF 90 days Coding Level of Care Code Est Pt Level 4 (92111) Diagnoses Primary hypertension I10 Hypertension type: primary hypertension Stage 3a chronic kidney disease N18.31 Chronic kidney disease stage 3 subtype: stage 3a (GFR 45-59)
[2025-06-24 13:38] VITALS: BP 100/70; PULSE 93; O2SAT 96; BMI 31.9
== END 2025-06-24 13:52 | disposition home or self-care (01) ==
LOC: HO.HKA 13:26
PROVIDERS: PCP Family Medicine; Visit Provider Internal Medicine Nephrology
DX: I10 Essential (primary) hypertension (principal); N18.31 Chronic kidney disease, stage 3a
CPT/HCPCS: 99214

== ENCOUNTER → 2025-06-24 13:25 | Outpatient (BNVA) | payer MEDICARE, BC, SELFPAY ==
[2022-01-22 07:26] VITALS: BP 118/64; BP 152/70; BP 180/92; BMI 31.6
== END ==
PROVIDERS: PCP Family Medicine; Visit Provider Internal Medicine Nephrology
DX: I12.9 Hypertensive chronic kidney disease with stage 1 through stage 4 chronic kidney disease, or unspecified chronic kidney disease (principal); N18.31 Chronic kidney disease, stage 3a
CPT/HCPCS: 99212

== ENCOUNTER 2025-08-05 14:17 | Outpatient (REF) | payer MEDICARE, BC, SELFPAY ==
[2022-01-22 07:26] VITALS: BP 118/64; BP 152/70; BP 180/92; BMI 31.6
--- OUTSIDE RECORDS SUMMARY | 2025-08-05 14:25 | XMS_ITS | Clinical Summary ---
Author Organization [facility] Address [address] [place] [address] Phone Care Team Providers Care Physician Support Coordinator Name Role Phone Derrick Patel MD Primary Care Provider +1- [phone] Allergies Active Allergy Reactions Criticality Noted Date [...] 08/07/2021 01/30/2022 Atherosclerotic heart diseas e of [place] coronary artery with angina pectoris, not otherwise [...] Visual Foot Exam 07/31/2022 Influenza Vaccine (#1) 2025 , 07/12/2020, 07/26/2019, Additional history exists Colorectal [...] 10.7 mg/dL Phosphorus, Serum 3.8 eGFR Non-Afr Ethiopian 47 Hemoglobin A1C 6.3(A) 4.0 - 6.0 [...] Most Recently Relevant to Health Maintenance Insurance [facility] Medicare [facility] Medicare Care Teams Physician Support Coordinator Relationship Specialty Start Date End Date Leombruno, Derrick R, MD [facility] [address] [place] [address] PCP - General Family Medicine 01/22/23
--- OUTSIDE RECORDS SUMMARY | 2025-08-05 14:25 | XMS_ITS | Patient Health Record ---
Author Organization [facility] ricardo Johnson[facility] Address [address] [place] [address] Care Team Providers Care Stock Shaper Name Role Phone Chela GRANDE, Elvin Primary Care Provider Unava ilable Ciara Arroyo Unavailable [phone] Allergies Allergen (clinical drug ingredient) Drug/Non Drug [...] Status Risk Notes Problem Pain in limb (64132962) Pain in Limb (729.5) Active confirmed Problem Plantar fasciitis (319178293) Plantar Fasciitis (728.71) Active confirmed Problem Metatarsalgia (10477081) Metatarsalgia (726.70) Active confirmed Problem Myositis (64855754) Myositis (729.1) Active confirmed Problem Type II diabetes mellitus without complication (435532571) Diabetic - NIDDM (250.00) Active confirmed Plan Of Treatment No Information Insurance Providers Payer Name Payer Address Payer Phone Subscriber Number Group Number Insured Name Patient Relationship to Insured Coverage Start Date Coverage End Date [facility] [address] [place] [address] [id number] Ha Melton Self - patient is the insured Medical (General) History Medical History History ICD Code Back,Hip,and Knee pain Diabetes mellitus Gout Hypertension Neuropathy Reflux Sciatica Sinus conditions Chicken pox Measles Surgical History Surgery Date(Month/Year) carpal tunnel release, bilateral 09/2006 , 10/2006
--- OUTSIDE RECORDS SUMMARY | 2025-08-05 14:25 | XMS_ITS | Encounter Summary ---
Author Organization [facility] Address [address] [facility] [[email or web address]] [address] [place] [address] Phone Care Team Providers Care Food And Beverage Checker Name Role Phone Derrick Patel MD Primary Care Provider +1- [phone] Encounter Details Date Type Department Care Team (Late st Contact Info) Description 03/07/2021 Documentation Only [facility] [address] [facility] [[email or web address] [address] [place] [phone] Adriana Lyle MA Social History Tobacco Use [...] on filedocumented in this encounter Care Teams Food And Beverage Checker Relationship Specialty Start Date End Date Derrick Patel MD [address] [place], [place] [address] [place] [phone] PCP - General Family Medicine 01/22/23 documented as of this encounter
[2025-08-05 16:36] LABS: Anion Gap 14 (12-20); Blood Urea Nitrogen 15 mg/dL (9-16); Carbon Dioxide 23 mmol/L (22-29); Chloride 104 mmol/L (96-108); Estimated Glomerular Filt Rate 46; Potassium 4.4 mmol/L (3.3-5.1); Sodium 137 mmol/L (135-145)
== END 2025-08-05 14:18 | disposition home or self-care (01) ==
LOC: HO.HMGCLDS 14:17
PROVIDERS: PCP Family Medicine; Visit Provider Internal Medicine Nephrology
DX: I12.9 Hypertensive chronic kidney disease with stage 1 through stage 4 chronic kidney disease, or unspecified chronic kidney disease (principal); N18.31 Chronic kidney disease, stage 3a; Z13.1 Encounter for screening for diabetes mellitus
CPT/HCPCS: 36415; 80051; 82565; 83036; 84520

== ENCOUNTER 2025-08-17 13:58 | Outpatient (AMB) | payer MEDICARE, BC, SELFPAY ==
[2022-01-22 07:26] VITALS: BP 118/64; BP 152/70; BP 180/92; BMI 31.6
--- NOTE | 2025-08-17 14:04 | HO.NEPHOV ---
Vital Signs 08/17/25 14:06 Height 5 ft 10 in Weight 223 lb 4 oz BMI 32.0 BP 144/66 H Blood Pressure Location Lt brachial Position Sitting Pulse 62 Pulse Source Pulse Oximeter Pulse Oximetry (%) 96 Oxygen Delivery Method Room Air Intake Visit Reasons: 2mon f/u w/labs-[employer] Required: No Accompanied by: Self / Same As Patient Allergies amlodipine Allergy (Intermediate, Verified 08/17/25 14:06) tinnitis chlorthalidone Adverse Reaction (Intermediate, Verified 08/17/25 14:06) dehydration erythromycin base Adverse Reaction (Intermediate, Verified 08/17/25 14:06) Gastrointestinal Upset lisinopril Adverse Reaction (Intermediate, Verified 08/17/25 14:06) Cough HPI Comments Details: Ha was seen in follow-up of his chronic kidney disease. He is known to have vascular disease. In the past he had undergone cardiac surgery and later cardiac catheterization and PCI.His blood pressure is better controlled. By a recent Holter monitor recently he apparently has an arrythmia. He does not have any gout attacks. He remains on Plavix. His blood sugar control is reasonable. He is tolerating angiotensin receptor jay. His volume status is optimal on current dose of diuretics. He denies any chest pain, shortness of breath, paroxysmal nocturnal dyspnea, orthopnea, orthostatic symptoms. He tries to avoid nonsteroidal anti-inflammatories. He is on Jardiance. [facility] Medical History (Updated 03/18/25 @ 14:25 by Braden Gillis MD) On beta jay at home Carotid stenosis CAD (coronary artery disease) CKD (chronic kidney disease), stage III KATI treated with BiPAP COVID-19 vaccine administered Arthritis Diabetes GERD (gastroesophageal reflux disease) Depression Sleep apnea Hx of aortic valve stenosis Elevated cholesterol HTN (hypertension) Surgical History Hx of five vessel coronary artery bypass History of bilateral cataract extraction Status post cardiac revascularization with bypass aortocoronary anastomosis of five coronary vessels History of esophagogastroduodenoscopy (EGD) H/O colonoscopy History of carpal tunnel release Social History Household Members Other:: lives with Are you a primary child care specialist to a significant other at home: No Do you presently have visiting nurse or other home services: No Alcohol intake: current Patient Tobacco Use Status: Former Tobacco user Tobacco use type: Cigar Current occupational status: retired Current occupation: [employer] Review of Systems Const All systems reviewed & are unremarkable except as noted in HPI and below Physical Exam Vital Signs: Last Vital Signs Pulse 62 08/17/25 14:06 BP 144/66 H 08/17/25 14:06 Pulse Ox 96 08/17/25 14:06 Oxygen Delivery Method Room Air 08/17/25 14:06 BMI result Body Mass Index 32.0 Const General: comfortable and no acute distress Orientation/consciousness: patient oriented x3 HEENT Head: Yes normocephalic Mouth: Normal oral and palatal mucosa present Eyes EOM: EOMs intact bilaterally Neck Neck: Yes supple Resp Auscultation: clear to auscultation bilaterally Cardio Jugular venous distension: no JVD Rate: regular rate GI Palpation (GI): Soft to palpation Auscultation: normal bowel sounds General: Yes no CVA tenderness Back/Spine/Pelvis Back: no CVA tenderness Skin General skin exam: no rashes or lesions noted Neuro General: patient oriented x3 and moves all extremities Extrem General: Yes no pedal edema Results Reviewed Nephrology Results: Sodium, (135-145) 137 mmol/L 08/05/25 Potassium, (3.3-5.1) 4.4 mmol/L 08/05/25 Chloride, (96-108) 104 mmol/L 08/05/25 Carbon Dioxide, (22-29) 23 mmol/L 08/05/25 BUN, (9-16) 15 mg/dL 08/05/25 Creatinine, (0.5-1.4) 1.49 mg/dL H 08/05/25 Assessment & Plan Assessment & Plan (1) CKD (chronic kidney disease), stage III: Code(s): N18.30 - Chronic kidney disease, stage 3 unspecified Category: Medical Qualifiers: Chronic kidney disease stage 3 subtype: stage 3a (GFR 45-59) Qualified Code(s): N18.31 - Chronic kidney disease, stage 3a (2) HTN (hypertension): Code(s): I10 - Essential (primary) hypertension Category: Medical Qualifiers: Hypertension type: primary hypertension Qualified Code(s): I10 - Essential (primary) hypertension (3) Metabolic acidosis: Code(s): E87.20 - Acidosis, unspecified Category: Medical Plan Ha is known to have chronic kidney disease from vascular disease. He is diabetic and hypertensive. He had multiple coronary interventions. He is due to have TAVR. He is on statins. He is on SGLT2 inhibitor which I want to increase to 25 mg at next visit . He is tolerating angiotensin receptor jay. He avoids NSAIDs. He should maintain low-sodium diet and should lose weight. He is on statins. He can continue PO NaHCO3 650 mg daily. I did not make any other medication changes today. Further management is pending evolving data Orders: Orders Creatinine 3 Months Braden Gillis MD N18.31 - Chronic kidney disease, stage 3a Blood Urea Nitrogen 3 Months Braden Gillis MD N18.31 - Chronic kidney disease, stage 3a Electrolytes 3 Months Braden Gillis MD N18.31 - Chronic kidney disease, stage 3a Protein Creatinine Ratio, Ur 3 Months Braden Gillis MD N18.31 - Chronic kidney disease, stage 3a Complete Blood Count Auto Diff 3 Months Braden Gillis MD N18.31 - Chronic kidney disease, stage 3a Medications: On Hold aspirin Hold Comment: Doctor's Order 81 mg PO DAILY Adriana Lyle MA clopidogrel Hold Comment: Doctor's Order 75 mg PO DAILY Adriana Lyle MA Coding Level of Care Code Est Pt Level 4 (47058) Diagnoses Stage 3a chronic kidney disease N18.31 Chronic kidney disease stage 3 subtype: stage 3a (GFR 45-59) Primary hypertension I10 Hypertension type: primary hypertension Metabolic acidosis E87.20
[2025-08-17 14:06] VITALS: BP 144/66; PULSE 62; O2SAT 96; BMI 32.0
--- OUTSIDE RECORDS SUMMARY | 2025-08-17 17:43 | XMS_ITS | Patient Health Record ---
Author Organization [facility] ricardo Johnson[facility] Address [address] [facility] [address] Care Team Providers Care Production Control Coordinator Name Role Phone Chela GRANDE, Elvin Primary Care Provider Unava ilable Ciara Arroyo Unavailable [phone] Allergies Allergen (clinical drug ingredient) Drug/Non Drug [...] Status Risk Notes Problem Pain in limb (80968425) Pain in Limb (729.5) Active confirmed Problem Plantar fasciitis (938154166) Plantar Fasciitis (728.71) Active confirmed Problem Metatarsalgia (46079521) Metatarsalgia (726.70) Active confirmed Problem Myositis (24062163) Myositis (729.1) Active confirmed Problem Type II diabetes mellitus without complication (146989323) Diabetic - NIDDM (250.00) Active confirmed Plan Of Treatment No Information Insurance Providers Payer Name Payer Address Payer Phone Subscriber Number Group Number Insured Name Patient Relationship to Insured Coverage Start Date Coverage End Date [facility] [address] [place] [address] [phone] [id number] Ha Melton Self - patient is the insured Medical (General) History Medical History History ICD Code Back,Hip,and Knee pain Diabetes mellitus Gout Hypertension Neuropathy Reflux Sciatica Sinus conditions Chicken pox Measles Surgical History Surgery Date(Month/Year) carpal tunnel release, bilateral 09/2006 , 10/2006
--- OUTSIDE RECORDS SUMMARY | 2025-08-17 17:43 | XMS_ITS | Clinical Summary ---
Author Organization [facility] [employer] [facility] Address [address] [place] [address] Phone Care Team Providers Care Spa Manager/Esthetician Name Role Phone Derrick Patel MD Primary Care Provider +1- [phone] Allergies Active Allergy Reactions Criticality Noted Date Comments Amlodipine 10/30/2021 Chlorthalidone 10/30/2021 Empagliflozin Other 06/06/2022 Erythromycin 10/30/2021 Lisinopril 10/30/2021 Medications clopidogreL (PLAVIX) 75 mg tablet TAKE 1 TABLET BY MOUTH DAILY 90 tablet 2 Active allopurinoL (ZYLOPRIM) 300 mg tablet Take [...] BY MOUTH TWICE DAILY 180 tablet 3 5 Active sodium bicarbonate 650 mg tablet Take 1 tablet (650 mg total) by mouth 1 (one) time each day. Active metoprolol tartrate (LOPRESSOR) 50 mg tablet Take 1 tablet (50 mg total) by mouth 2 (two) times a day. 180 tablet 3 5 Active isosorbide mononitrate (IMDUR) 30 mg 24 hr tablet Take 1 tablet (30 mg total) by mouth 1 (one) time each day. 90 tablet 3 5 Active Active Problems Problem Noted Date Diagnosed Date Essential hypertension 04/22/2024 Assessment & Plan (04/21/2025 2:52 PM EDT): Acceptable during today's exam with a reading of 130/70. I have made no changes to his medications. He will continue on his current dose of hydralazine, losartan and metoprolol. Educated on the importance of diet lifestyle to help further assist in reducing blood pressure. The patient was encouraged to follow low-salt low-fat diet, make purposeful strides towards weight loss, and engage in routine aerobic exercise as tolerated. Assessment & Plan (01/10/2025 4:05 PM EDT): Blood pressure is well-controlled today, continue on current antihypertensive medication regimen. I have reviewed with the patient the importance of a heart healthy lifestyle which includes eating a low-fat low-salt diet, getting regular exercise, maintaining a healthy weight, not smoking, and following up with routine medical care. CKD (chronic kidney disease) stage 3, GFR 30-59 ml/min ([facility] V24, [facility] V28) 09/29/2023 Assessment & Plan (04/21/2025 2:52 PM EDT): Patient follows with Dr. Gillis from nephrology. PVD (peripheral vascular disease) ([facility] V24) 07/18/2023 Assessment & Plan (04/21/2025 2:52 PM EDT): He follows with Dr. Dial. Continue cilostazol Assessment & Plan (01/10/2025 4:05 PM EDT): Continue on cilostazol as ordered as well as aspirin and statin. Continue daily walking as tolerated. Dyspnea 01/10/2023 Coronary artery disease of n ative artery of [place] heart with stable angina pectoris ([facility] V24) 11/05/2021 Overview (01/03/2025): 5V CABG with [...] they were to faint. Assessment & Plan (04/21/2025 2:52 PM EDT): Patient denies any anginal symptoms. CABG in 2020 with repeat cardiac catheterization and PCI in 2022 as outlined above. Continue on cardioprotective medical therapy of aspirin, Plavix, isosorbide, metoprolol and pravastatin. Instructed to call 911 or go to the emergency room should the patient begin to experience chest pain or pressure lasting greater than 10 minutes does not resolve with rest. Orders: Basic metabolic panel; Future CBC and differential; Future Prothrombin time with INR; Future Assessment & Plan (01/10/2025 4:05 PM EDT): [...] gradient of 32.95/19 mmHg August 2021 at [facility] Last Assessment & Plan: On cardiac catheterization [...] of this as needed. Assessment & Plan (04/21/2025 2:52 PM EDT): Recent echocardiogram revealed progression of aortic stenosis to severe with a mean gradient of 39 mmHg. During our visit today the patient does endorse increased shortness of breath, dizziness and lightheadedness as well as fatigue. Subsequently, we did discuss the progression of aortic stenosis and timing of cardiac catheterization to move forward with next steps for potential aortic valve replacement. At this time he will undergo cardiac catheterization. I explained the risks of cardiac catheterization including risk for damage to access site, risk for kidney injury, bleeding, AK, stroke, pericardial effusion leading to tamponade and . The patient understands these risks and agrees to proceed. I have given him lab slips to have preprocedure blood work drawn. Assessment & Plan (01/10/2025 4:05 PM EDT): [...] for further evaluation of underlying carotid stenosis. Assessment & Plan (04/21/2025 2:52 PM EDT): Patient denies any unilateral weakness, visual changes or word finding. He will continue on his current dose of aspirin Plavix and statin therapy. Hyperlipidemia 10/29/2021 Overview (01/03/2025): Last Assessment & [...] Encounters Date Type Department Care Team Description 08/11/2025 Telephone [facility] [address] [place] [address] [place] [address] Hal Dial MD 08/11/2025 Telephone [facility] [address] [place] [address] [place] [address] Hal Dial MD 07/14/2025 Telephone [facility] [address] [place] [address] Hal Dial MD 07/07/2025 Telephone [facility] [address] [place] [address] [place] [address] Hal Dial MD 07/06/2025 Telephone [facility] - [address] [place] [address] Jaguar Hawthorne MD 06/28/2025 Telephone [facility] - [address] [place] [address] Jaguar Hawthorne MD 06/22/2025 Telephone [facility] Card[facility] [address] [place] [address] Hal Dial MD 06/06/2025 Telephone [facility] - [address] [place] [address] Hal Dial MD from Last 3 Months Immunizations Immunization Administration Dates Next Due Moderna SARS-CoV-2 COVID-19, [...] pelvis abnormal OTHER SURGICAL HISTORY 02/04/2021 PROCEDURE: AR ECG ROUTINE ECG W/LEAST 12 LDS W/I&R; COMMENT: sinusarrythmia OTHER SURGICAL HISTORY 02/04/2021 PROCEDURE: HISTORY OTHER; COMMENT: US scan of gallbladder OTHER SURGICAL HISTORY 01/18/2021 PROCEDURE: ECHOCARDIOGRAM WITH CONTRAST (DEFINITY); COMMENT: mild ef 55% OTHER SURGICAL HISTORY 01/08/2021 PROCEDURE: AR DOPPLER ECHOCARD PULSE WAVE W/SPECTRAL DISPLAY; COMMENT: [...] W/STENT PLCMT OTHER SURGICAL HISTORY 04/20/2012 PROCEDURE: AR ECG ROUTINE ECG W/LEAST 12 LDS W/I&R [...] SURGICAL HISTORY PROCEDURE: HISTORY OTHER; COMMENT: Polysomnogram CARDIAC CATHETERIZATION DONE ON 05/03/[address] [facility] INDICATIONS:AORTIC VALVE DISEASE Medical History Medical History Date Comments Adenomatous [...] Sign Reading Time Taken Comments Blood Pressure 110/66 05/12/2025 1:54 PM EDT Pulse 68 05/12/2025 1:54 PM EDT Temperature - - Respiratory Rate - - Oxygen Saturation 96% 05/12/2025 1:54 PM EDT Inhaled Oxygen Concentration - - Weight 99.8 kg (220 lb) 05/12/2025 1:54 PM EDT Height 177.8 cm (5' 10 ) 05/12/2025 1:54 PM EDT Body Mass Index 31.57 05/12/2025 1:54 PM EDT Plan of Treatment Upcoming Encounters Date Type Department Care Team (Late st Contact Info) Description 09/14/2025 12:40 PM EST Office Visit [facility] [address] [place] [phone] Miguel Sanchez NP [address] [place] [address] [address] [place] [phone] 10/17/2025 10:00 AM EST Ancillary Procedure [facility] - [address] [place] [phone] 11/08/2025 3:40 PM EST Office Visit [facility] [address] [place] [address] Miguel Sanchez NP [address] [place] [address] [address] [place] [address] Health Maintenance Due Date Last Done Comments Colorectal Cancer Screening: Colonoscopy 1952 Diabetes: Annual Foot Exam 1962 Diabetes: Annual Retina Eye Exam 1962 RSV Immunization Adult Patients (1 - Risk 50-74 years 1-dose series) 2002 DTaP,Tdap,and Td Vaccines (3 - Td or Tdap) 08/03/2022 08/03/2012, 11/26/2006 Abdominal Aortic Aneurysm (AAA) Screen 10/13/2022 Falls Risk Assessment 10/13/2022 Hepatitis C Screening 10/13/2022 Medicare Annual Wellness Visit 10/13/2022 Social Influencers of Health Screening 10/13/2022 Depression Screening 11/03/2024 Diabetes: Annual Urine Albumin-Creatinine Ratio (uACR) 01/10/2025 Diabetes: Blood Sugar Control Test (HGBA1C) 01/10/2025 Diabetes: Annual GFR (Glomerular Filtration Rate) 06/07/2025 06/07/2024, 06/07/2024, 06/01/2024 Hypertension/CHF/CAD Annual BMP Blood Test 06/07/2025 06/07/2024, 06/07/2024, 06/01/2024 COVID-19 Vaccine ( season) 2025 09/20/2021, 02/23/2021, 01/26/2021, Additional history exists Influenza Vaccine (#1) 2025 , 10/15/2023, 09/02/2022, Additional history exists Cholesterol Screening (Lipid Panel) 06/01/2029 06/01/2024, 06/01/2024 Pneumococcal Vaccine: 50+ Years Completed 01/22/2019, 06/23/2017, 11/26/2006 Zoster Vaccines Completed 05/07/2019, 02/01, 11/13/2012 HIB Vaccines Aged Out No longer eligi [...] Procedure Name Priority Date/Time Associated Diagnosis Comments ANNUAL BMP BLOOD TEST Routine 06/07/2024 LIPID PANEL Routine 06/01/2024 from Last 3 Months or Most Recently Relevant to Health Maintenance Results * Annual BMP Blood Test (06/07/2024) [facility] Annual BMP Blood Test abstracted Historical Provider HEALTH MAINTENANCE Final Result * (ABNORMAL) Lipid panel (06/01/2024) [facility] LDL/HDL Ratio 3 0 - 4 Triglycerides 254(A) 0 - 150 mg/dL Cholesterol 145 0 - 200 mg/dL HDL 43 >=40 mg/dL LDL Cholesterol 52 0 - 100 mg/dL Blood Venous blood specimen / Unknown Historical Provider LAB BLOOD ORDERABLES Madelyn l Result from Last 3 Months or Most Recently Relevant to Health Maintenance Insurance MEDICARE [facility] [[email or web address] Member Subscriber Plan / Payer ( fective 2024-Present) Name:LAWRENCE POWER Relation to Subscriber:Self Name:Lawrence Power Payer ID:[id number] Group ID:[id number] Type:Not on file Address: [address] [place] [address] Care Teams Spa Manager/Esthetician Relationship Specialty Start Date End Date Derrick Patel MD [facility] [address] [place] [phone] PCP - General 01/10/23
--- OUTSIDE RECORDS SUMMARY | 2025-08-17 17:43 | XMS_ITS | Encounter Summary ---
Author Organization [facility] Address [address] [place] [address] Care Team Providers Care Automation Machine Operator Name Role Phone Derrick Patel MD Primary Care Provider +1- [phone] Reason for Visit * Reason Onset Date Comments pt needs labs before his 11/08/25 TAVR f/u visit with [facility] 08/11/2025 Encounter Details Date Type Department Care Team (Late st Contact Info) Description 08/11/2025 Telephone [facility] Cardiology [facility] [address] [place] [phone] Hal Dial MD [address] [place] [address] [address] [place] [address] Social History Tobacco Use Types Packs/Day Years [...] as of this encounter Progress Notes * Anisha Heart - 08/11/2025 3:04 PM EDT Ha is scheduled for a TAVR follow up visit with Miguel Sanchez on FridayNovember 08, 2025 at 3:40 PM. Can you please arrange labs prior to his appointment? Thanks. documented in this encounter Plan of Treatment Upcoming Encounters Date Type Department Care Team (Late st Contact Info) Description 09/14/2025 12:40 PM EST Office Visit [facility] Cardiology [facility] [address] [facility] [address] [place] [phone] Miguel Sanchez NP [address] [place] [address] [address] [place] [phone] 10/17/2025 10:00 AM EST Ancillary Procedure [facility] - [address] [place] [phone] 11/08/2025 3:40 PM EST Office Visit [facility] [address] [facility] [address] [place] [phone] Miguel Sanchez NP [address] [place] [address] [address] [place] [phone] documented as of this encounter Visit Diagnoses Not on filedocumented in this encounter Care Teams Automation Machine Operator Relationship Specialty Start Date End Date Derrick Patel MD [address] [facility] [address] [place] [phone] PCP - General 01/10/23 documented as of this encounter
== END 2025-08-17 14:31 | disposition home or self-care (01) ==
LOC: HO.HKA 13:59
PROVIDERS: PCP Family Medicine; Visit Provider Internal Medicine Nephrology
DX: N18.31 Chronic kidney disease, stage 3a (principal); I10 Essential (primary) hypertension; E87.20 Acidosis, unspecified
CPT/HCPCS: 99214

== ENCOUNTER → 2025-08-17 13:58 | Outpatient (BNVA) | payer MEDICARE, BC, SELFPAY ==
[2022-01-22 07:26] VITALS: BP 118/64; BP 152/70; BP 180/92; BMI 31.6
== END ==
PROVIDERS: PCP Family Medicine; Visit Provider Internal Medicine Nephrology
DX: N18.31 Chronic kidney disease, stage 3a (principal); I10 Essential (primary) hypertension; E87.20 Acidosis, unspecified
CPT/HCPCS: 99212

== ENCOUNTER 2025-11-01 14:03 | Outpatient (REF) | payer MEDICARE, BC, SELFPAY ==
[2022-01-22 07:26] VITALS: BP 118/64; BP 152/70; BP 180/92; BMI 31.6
--- NOTE | ~2025-11-01 | XR_ITS ---
EXAMINATION: XR CHEST CLINICAL INFORMATION: R05.9 - Cough, unspecified COMPARISON: None available. TECHNIQUE: 2 views of the chest were obtained. FINDINGS: There is been prior median sternotomy and CABG. TAVR in place. There is mild cardiac enlargement. The mediastinal and hilar contours appear normal. Aortic mural calcifications. The lungs are somewhat hyperaerated with flattened hemidiaphragms, however clear bilaterally. There is no pneumothorax or pleural effusion. There is no focal osseous or soft tissue abnormality. Mild degenerative changes throughout the spine. XR/XR chest 2V IMPRESSION: No active pulmonary disease. Electronically signed by: Aron Huber MD 11/02/2025 08:08 AM [facility]
[2025-11-01 16:17] LABS: MANUAL DIFF FLAG NO
[2025-11-01 16:30] LABS: Hematocrit 42.7 % (42.0-52.0); Hemoglobin 14.9 g/dl (14.0-18.0); Imm Gran Abs Auto 0.04 X10*3/uL (0.00-0.03); Imm Gran Pct Auto 0.4 % (0.0-0.4); Lymphocytes Absolute Auto 1.2 X10*3/uL (1.2-4.9); Mean Corpuscular HGB Conc 34.9 g/dl (31.0-36.0); Mean Corpuscular Hemoglobin 33.9 pg (27.0-33.0); Mean Corpuscular Volume 97.3 fL (80.0-98.0); NRBC Abs Auto 0.000 X10*3/uL (0.0-0.012); NRBC Pct Auto 0.0 /100WBC (0.0-0.2); Platelet Count 257 X10*3/uL (160-400); Red Blood Count 4.39 X10*6/uL (4.60-5.80); White Blood Count 8.9 X10*3/uL (4.8-10.8)
[2025-11-01 16:38] LABS: Anion Gap 13 (12-20); Blood Urea Nitrogen 14 mg/dL (9-16); Calcium 9.7 mg/dL (8.4-10.2); Carbon Dioxide 24 mmol/L (22-29); Chloride 107 mmol/L (96-108); Estimated Glomerular Filt Rate 48; Potassium 4.5 mmol/L (3.3-5.1); Sodium 139 mmol/L (135-145)
[2025-11-01 17:10] LABS: Resp Syncy Virus RNA Qual PCR NEGATIVE (Negative); SARS COV2 PCR INHOUSE NEGATIVE (Negative)
--- OUTSIDE RECORDS SUMMARY | 2025-11-01 17:55 | XMS_ITS | Encounter Summary ---
Author Organization [facility] Address [address] [facility] [address] [place] [address] Phone Care Team Providers Care Paper Cone Maker Name Role Phone Derrick Patel MD Primary Care Provider +1- [phone] Encounter Details Date Type Department Care Team (Late st Contact Info) Description 03/07/2021 Documentation Only [facility] [address] [facility] [address] [place] [phone] Adriana Lyle MA Social History Tobacco Use [...] on filedocumented in this encounter Care Teams Paper Cone Maker Relationship Specialty Start Date End Date Derrick Patel MD [address] [place], [place] [address] [place] [phone] PCP - General Family Medicine 01/22/23 documented as of this encounter
--- OUTSIDE RECORDS SUMMARY | 2025-11-01 17:55 | XMS_ITS | Patient Health Record ---
Author Organization [facility] Address [address] [place] [address] Care Team Providers Care Splitter Head Name Role Phone Chela GRANDE, Elvin Primary Care Provider Unava ilable Ciara Arroyo Unavailable [phone] Allergies Allergen (clinical drug ingredient) Drug/Non Drug [...] Status Risk Notes Problem Pain in limb (27452637) Pain in Limb (729.5) Active confirmed Problem Plantar fasciitis (612447016) Plantar Fasciitis (728.71) Active confirmed Problem Metatarsalgia (34212784) Metatarsalgia (726.70) Active confirmed Problem Myositis (93740230) Myositis (729.1) Active confirmed Problem Type II diabetes mellitus without complication (853362146) Diabetic - NIDDM (250.00) Active confirmed Plan Of Treatment No Information Insurance Providers Payer Name Payer Address Payer Phone Subscriber Number Group Number Insured Name Patient Relationship to Insured Coverage Start Date Coverage End Date [facility] [address] [place] [address] [id number] [place] Self - patient is the insured Medical (General) History Medical History History ICD Code Back,Hip,and Knee pain Diabetes mellitus Gout Hypertension Neuropathy Reflux Sciatica Sinus conditions Chicken pox Measles Surgical History Surgery Date(Month/Year) carpal tunnel release, bilateral 09/2006 , 10/2006
--- OUTSIDE RECORDS SUMMARY | 2025-11-01 17:55 | XMS_ITS | Clinical Summary ---
Author Organization [facility] Address [address] [facility] [address] [address] [place] [address] Phone Care Team Providers Care Client Liaison Name Role Phone Derrick Patel MD Primary Care Provider +1- [phone] Allergies Active Allergy Reactions Criticality Noted Date [...] 08/07/2021 01/30/2022 Atherosclerotic heart diseas e of [place] coronary artery with angina pectoris, not otherwise [...] 10.7 mg/dL Phosphorus, Serum 3.8 eGFR Non-Afr Georgian 47 Hemoglobin A1C 6.3(A) 4.0 - 6.0 [...] Most Recently Relevant to Health Maintenance Insurance [facility] Medicare [facility] Medicare Care Teams Client Liaison Relationship Specialty Start Date End Date Leombruno, Derrick R, MD [facility] [address] [place] [address] PCP - General Family Medicine 01/22/23
--- OUTSIDE RECORDS SUMMARY | 2025-11-01 17:55 | XMS_ITS | Encounter Summary ---
Author Organization [facility] Address [address] [place] [address] Care Team Providers Care Pipe Stress Engineer Name Role Phone Derrick Patel MD Primary Care Provider +1- [phone] Encounter Details Date Type Department Care Team (Late st Contact Info) Description 10/28/2025 Results Follow-Up [facility] [address] [facility] [address] [place] [address] Mary Davalos NP [address] [place] [address] [address] [place] [address] Social History Tobacco Use Types [...] as of this encounter Plan of Treatment Upcoming Encounters Date Type Department Care Team (Late st Contact Info) Description 11/08/2025 3:40 PM EST Office Visit [facility] [address] [place] [address] Miguel Sanchez NP [address] [place] [address] [address] [place] [address] documented as of this encounter Visit Diagnoses Not on filedocumented in this encounter Care Teams Pipe Stress Engineer Relationship Specialty Start Date End Date Derrick Patel MD [address] [place] [phone] PCP - General 01/10/23 documented as of this encounter
--- OUTSIDE RECORDS SUMMARY | 2025-11-01 17:55 | XMS_ITS | Clinical Summary ---
Author Organization [facility] Address [address] [place], [place] [address] Phone Care Team Providers Care Residential Mortgage Underwriter Name Role Phone Derrick Patel MD Primary Care Provider [phone]- [phone] Allergies Active Allergy Reactions Criticality Noted Date Comments Amlodipine 10/30/2021 Chlorthalidone 10/30/2021 Erythromycin 10/30/2021 Lisinopril 10/30/2021 Medications allopurinoL (ZYLOPRIM) 300 mg tablet Take 1 [...] mouth 1 (one) time each day. Active isosorbide mononitrate (IMDUR) 30 mg 24 hr tablet Take 1 tablet (30 mg total) by mouth 1 (one) time each day. 90 tablet 3 5 Active metoprolol tartrate (LOPRESSOR) 50 mg tabletIndication s:Coronary artery disease of [place] artery of [place] heart with stable angina pectoris (CMS/HCC V24) Take 1 tablet (50 mg total) by mouth 2 (two) times a day. 180 tablet 3 Active Hospital, Clinic, or Other Facility Administered Medication Ordered Dose Route Frequency Start Date End Date Status perflutren lipid microsphere (DEFINITY) 0.39 mL in sodium chloride 0.9% 2.61 mL injectionIndications:Nonrhe umatic aortic valve stenosis 3 mL IV Once 10/17/2025 10/17/2025 Ended Active Problems Problem Noted Date Diagnosed Date S/p TAVR (transcatheter aort ic valve replacement), bioprosthetic 09/14/2025 Overview (09/14/2025): August 29, 2025 status post successful right transfemoral TAVR utilizing a 34 mm Evolut fracture plus bioprosthetic valve by Dr. Dial at [facility]; no intra or postoperative complications; metoprolol decreased to 12.5 mg twice daily due to asymptomatic bradycardia with Zio patch in place; discharged on aspirin monotherapy Assessment & Plan (09/14/2025 3:08 PM EST): Successful TAVR using 34 mm Evolute Fx Bioprosthetic valve on 08/29/25. No intra or post operative complications. The patient is having symptomatic improvement following his TAVR. His valve is working well on exam and by symptoms. He will not need prophylactic antibiotics given he had all his teeth removed. He is scheduled for a one month TAVR echocardiogram and then one month TAVR follow up. CKD (chronic kidney disease) stage 3, GFR 30-59 ml/min 09/29/2023 Assessment & Plan (04/21/2025 2:52 PM EDT): Patient follows with Dr. Gillis from nephrology. PVD (peripheral vascular disease) 07/18/2023 Overview (09/14/2025): August 2023 relief of right lower extremity pain with activity after having angioplasty of the right popliteal artery completed Assessment & Plan (09/14/2025 3:08 PM EST): No current reports of claudication. Continue with aspirin, cilostazol, pravastatin, empagliflozin, hydralazine, isosorbide, losartan and metoprolol. We discussed risk reduction through lifestyle choices including healthy diet, routine exercise and weight management. Assessment & Plan (04/21/2025 2:52 PM EDT): He follows with Dr. Dial. Continue cilostazol Assessment & Plan (01/10/2025 4:05 PM EDT): Continue on cilostazol as ordered as well as aspirin and statin. Continue daily walking as tolerated. Dyspnea 01/10/2023 Coronary artery disease of n ative artery of [place] heart with stable angina pectoris 11/05/2021 Overview (09/14/2025): August 2021 - 5V CABG with MILES to the mid LAD, SVG to the PDA, SVG to the OM, left radial to the ramus and SVG to the diagonal. June 2023 - cardiac PET stress testing revealing a small sized mild intensity reversible defect in the basal inferior lateral region June 2023 - cardiac catheterization revealing significant disease involving the antegrade limb [...] this was causing his symptoms or not. PCI of LM to distal left circumflex artery May 2025 -pre-TAVR diagnostic angiogram showing mild luminal irregularities of left main with patent stent, 99% stenosis of the ostium of the proximal LAD is a ROD GREASER 100% stenosis of the proximal LAD which is a ROD GREASER 50% stenosis in the proximal OM 3 and 100% stenosis of the proximal RCA which is a ROD GREASER with patent MILES to LAD, SVG to OM1, SVG to D1 and SVG to PDA Assessment & Plan (09/14/2025 3:08 PM EST): Successful CABG and then stenting of left main. Pre TAVR angiogram showing patent stent and grafts. Echocardiogram from March 2025 showed preserved LV systolic function LVEF 60-65% with no RWMAs. No anginal symptoms. Continue with aspirin, pravastatin, metoprolol, losartan, empagliflozin, hydralazine and isosorbide. We discussed risk reduction through lifestyle choices including healthy diet, routine exercise and weight management. Orders: metoprolol tartrate (LOPRESSOR) 50 mg tablet; Take 1 tablet (50 mg total) by mouth 2 (two) times a day. Assessment & Plan (04/21/2025 2:52 PM EDT): [...] 0.9% 8.7 mL injection Aortic stenosis 10/29/2021 Assessment & Plan (04/21/2025 2:52 PM EDT): [...] access site, risk for kidney injury, bleeding, NH, stroke, pericardial effusion leading to tamponade and [...] 0.9% 8.7 mL injection Carotid stenosis 10/29/2021 Assessment & Plan (04/21/2025 2:52 PM EDT): Patient denies any unilateral weakness, visual changes or word finding. He will continue on his current dose of aspirin Plavix and statin therapy. Hyperlipidemia 10/29/2021 Assessment & Plan (09/14/2025 3:08 PM EST): Continue with pravastatin. Assessment & Plan (01/10/2025 4:05 PM EDT): Continue on pravastatin 80 mg daily. Recent lipid panel from May 2024 showing an LDL level of 52 which is within his goal range of less than 70. His triglycerides were elevated and counseled to continue working on dietary changes. Essential hypertension 10/29/2021 Assessment & Plan (09/14/2025 3:08 PM EST): Elevated. Will increase metoprolol back to original dosing of 50 mg twice daily. Continue with hydralazine, isosorbide and losartan. I encouraged him to check his blood pressure at home and contact the office with reading consistently above 140/90. Assessment & Plan (04/21/2025 2:52 PM EDT): [...] and following up with routine medical care. Encounters Date Type Department Care Team Description 10/28/2025 Results Follow-Up [facility]iology [facility] [address] [facility] [address] [place] [address] Mary Davalos NP 10/28/2025 Results Follow-Up [facility] Cardiology [facility] [address] [facility] [address] [place] [address] Mary Davalos NP 10/17/2025 10:00 AM EST Ancillary Procedure [facility] [address] [place] [phone] Nonrheumatic aortic valve stenosis 09/26/2025 Telephone [facility] [address] [place] [address] Miguel Sanchez NP 09/14/2025 12:40 PM EST Office Visit [facility] [address] [place] [phone] Miguel Sanchez NP S/p TAVR (transcatheter aortic valve replacement), bioprosthetic (Primary Dx); Coronary artery disease of [place] artery of [place] heart with stable angina pectoris (CMS/HCC V24); PVD (peripheral vascular disease) (CMS/HCC V24); Essential hypertension; Hyperlipidemia, unspecified hyperlipidemia type 09/05/2025 Telephone [facility] [address] [place] [phone] Hal Dial MD 08/30/2025 12:00 PM EDT Ancillary Procedure [facility] [address] [place] [phone] Nonrheumatic aortic valve stenosis; Dyspnea, unspecified type; SOB (shortness of breath) 08/18/2025 Telephone [facility] [address] [place] [address] Hal Dial MD 08/11/[address] [facility] [address] [facility] [address] [place] [address] Hal Dial MD 08/11/[address] [facility] [address] [place] [address] Hal Dial MD from Last 3 Months [...] pelvis abnormal OTHER SURGICAL HISTORY 02/04/2021 PROCEDURE: PA ECG ROUTINE ECG W/LEAST 12 LDS W/I&R; COMMENT: sinusarrythmia OTHER SURGICAL HISTORY 02/04/2021 PROCEDURE: HISTORY OTHER; COMMENT: US scan of gallbladder OTHER SURGICAL HISTORY 01/18/2021 PROCEDURE: ECHOCARDIOGRAM WITH CONTRAST (DEFINITY); COMMENT: mild ef 55% OTHER SURGICAL HISTORY 01/08/2021 PROCEDURE: PA DOPPLER ECHOCARD PULSE WAVE W/SPECTRAL DISPLAY; COMMENT: [...] W/STENT PLCMT OTHER SURGICAL HISTORY 04/20/2012 PROCEDURE: PA ECG ROUTINE ECG W/LEAST 12 LDS W/I&R [...] Polysomnogram CARDIAC CATHETERIZATION DONE ON 05/03/2025 AT [facility] INDICATIONS:AORTIC VALVE DISEASE OTHER SURGICAL HISTORY TAVR DONE AT [facility] on 08/2725. Indications: Aortic stenosis Medical History Medical History Date Comments Adenomatous [...] Sign Reading Time Taken Comments Blood Pressure 160/78 10/17/2025 10:55 AM EST Pulse 94 09/14/2025 12:52 PM EST Temperature - - Respiratory Rate - - Oxygen Saturation 95% 09/14/2025 12:52 PM EST Inhaled Oxygen Concentration - - Weight 101 kg (223 lb) 10/17/2025 10:55 AM EST Height 177.8 cm (5' 10 ) 10/17/2025 10:55 AM EST Body Mass Index 32 10/17/2025 10:55 AM EST Plan of Treatment Upcoming Encounters Date Type Department Care Team (Late st Contact Info) Description 11/08/2025 3:40 PM EST Office Visit [facility] [address] [place] [address] [address] [place] [phone] Miguel Sanchez NP [address] [place] [address] [address] [place] [phone] Health Maintenance Due Date Last Done Comments Colorectal Cancer Screening: Colonoscopy 1952 Diabetes: Annual Foot Exam 1962 Diabetes: Annual Retina Eye Exam 1962 RSV Immunization Adult Patients (1 - Risk 50-74 years 1-dose series) 2002 DTaP,Tdap,and Td Vaccines (2 - Td or Tdap) 08/03/2022 08/03/2012, 11/26/2006 [...] Procedure Name Priority Date/Time Associated Diagnosis Comments TRANSTHORACIC ECHOCARDIOGRAM (TTE) COMPLETE W/ CONTRAST Routine 10/17/2025 10:55 AM EST Nonrheumatic aortic valve stenosis CARDIAC DENTAL OFFICE MANAGER (MCOT) Routine 08/31/2025 8:54 AM EDT Nonrheumatic aortic valve stenosis Dyspnea, unspecified type SOB (shortness of breath) ANNUAL BMP BLOOD TEST Routine 06/07/2024 LIPID PANEL Routine 06/01/2024 from Last 3 Months or Most Recently Relevant to Health Maintenance Results * (ABNORMAL) TRANSTHORACIC ECHOCARDIOGRAM (TTE) COMPLETE W/ CONTRAST (10/17/2025 10:55 AM EST) LV EDV (A2C) 147 mL CV PACS LV EDV (A4C) 152 mL CV PACS LV Diastolic Volume (BP) 150 62 - 150 mL CV PACS LV ESV (A2C) 47 mL CV PACS LV ESV (A4C) 54 mL CV PACS LV Systolic Volume (BP) 51 21 - 61 mL CV PACS IVSD 1.3(A) 0.6 - 1.0 cm CV PACS LVIDD 5.8 4.2 - 5.8 cm CV PACS LVIDS 3.9 2.5 - 4.0 cm CV PACS LVOT Diameter 2.2 cm CV PACS LVOT Mean [place] 0.7 m/s CV PACS LVOT Mean Grad 2 mmHg CV PACS LVOT Mean Grad 2 mmHg CV PACS LVOT Peak VTI 22.6 cm CV PACS LVOT Peak [place]on[place] 1.0 m/s CV PACS LVOT Peak Gradient 4 mmHg CV PACS LVPWD 1.3(A) 0.6 - 1.0 cm CV PACS MV E' Tissue Velocity Lateral 8 cm/s CV PACS MV E' Tissue Velocity Septal 6 cm/s CV PACS Ejection Fraction (A2C) 68 % CV PACS Ejection Fraction (A4C) 65 % CV PACS Ejection Fraction (BP) 66 % CV PACS LVOT Area 3.8 cm2 CV PACS LVOT Stroke Volume 86 mL CV PACS Left Atrium Minor [place] 6.9 cm CV PACS Left Atrium Major [place] 7.7 cm CV PACS LA Area Sys (A2C) 24 cm2 CV PACS LA Area Sys (A4C) 31 cm2 CV PACS LA Volume (BP) 86 mL CV PACS RA Area 24.7 cm2 CV PACS RA 2D Volume 73 mL CV PACS AV Mean Gradient 8 mmHg CV PACS Ao VTI 39.7 cm CV PACS AV Peak [place] 1.9 m/s CV PACS AV Peak Gradient 15 mmHg CV PACS AV Area Continuity Equation 2.2 cm2 CV PACS AV Area Peak Velocity 1.9 cm2 CV PACS Ascending Aorta 3.8 cm CV PACS IVC Proximal 2.0 cm CV PACS MV Deceleration [place] 3.1 m/s2 CV PACS E Wave Deceleration Time 322(A) 119 - 242 ms CV PACS MV PHT 94 ms CV PACS MV Peak A [place] 0.94 m/s CV PACS MV Peak E [place] 0.99 m/s CV PACS MV Area PHT 2.3 cm2 CV PACS PV Acceleration Time 74 ms CV PACS PV Acceleration Time 74 ms CV PACS RV Diastolic Basal Dimension 4.5(A) 2.5 - 4.1 cm CV PACS RV S' 11 cm/s CV PACS TAPSE 15 mm CV PACS LV ESV Index (A4C) 25 mL/m2 CV PACS LV EDV Index (A4C) 69 mL/m2 CV PACS E/E' Ratio Septal 17 CV PACS E/E' Ratio Averaged 14 CV PACS LVOT Stroke Index 39 mL/m2 CV PACS Relative Wall Thickness ratio 0.45 CV PACS LVOT:AV VTI Index 0.57 CV PACS FS 33 % CV PACS LV Mass 2D 331 g CV PACS Ascending Aorta Index 1.74 cm/m2 CV PACS LVOT flow 266 mL/s CV PACS RA 2D Volume Index 33 mL/m2 CV PACS SHERRI Index (VTI) 0.99 cm2/m2 CV PACS SHERRI Index (Pk Adonay) 0.87 cm2/m2 CV PACS LVIDD Index 2.65 cm/m2 CV PACS LVIDS Index 1.78 cm/m2 CV PACS AV Velocity Ratio 0.53 CV PACS E/A Ratio 1.1 CV PACS E/E' Ratio Lateral 12 CV PACS LV Systolic Volume Index (BP) 23 mL/m2 CV PACS LV Diastolic Volume Index (BP) 68 mL/m2 CV PACS LA Volume Index (BP) 39 mL/m2 CV PACS LV Mass Index 2D 151 g/m2 CV PACS LV EDV Index (A2C) 67 mL/m2 CV PACS LV ESV Index (A2C) 21 mL/m2 CV PACS BSA 2.24 m2 CV PACS Est. RA Pressure 3 mmHg CV PACS Anatomical Region Laterality Modality Ultrasound Narrative 10/21/2025 9:36 AM EST Left Ventricle: Left ventricle cavity size is normal. There is mild concentric hypertrophy. Systolic function is normal with an ejection fraction of 60-65%. There are no regional LV wall motion abnormalities. Indeterminate diastolic function. Left Atrium: Left atrium cavity is mildly dilated. Left atrium volume index is mildly increased. Right Ventricle: Right ventricle cavity is dilated. Abnormal TAPSE (< 17 mm). Normal systolic excursion velocity by TDI (>9.5 cm/s). Right Atrium: Right atrium cavity is mildly dilated. Aortic Valve: The valve has been surgically replaced. There is a 34 mm TAVR bioprosthetic valve. There is trace paravalvular regurgitation. There is no significant stenosis. Aorta: The ascending aorta is (3.8 cm). When compared to the prior echocardiogram from 03/22/2025, aortic valve is replaced by TAVR valve. Left Ventricle Left ventricle cavity size is normal. There is mild concentric hypertrophy. Systolic function is normal with an ejection fraction of 60-65%. There are no regional LV wall motion abnormalities. Indeterminate diastolic function. Right Ventricle Right ventricle cavity is dilated. Abnormal TAPSE (< 17 mm). Normal systolic excursion velocity by TDI (>9.5 cm/s). Left Atrium Left atrium cavity is mildly dilated. Left atrium volume index is mildly increased. Right Atrium Right atrium cavity is mildly dilated. IVC/SVC Inferior vena cava structure is normal. RA pressure is estimated to be 3 mmHg (IVC diameter <21 mm and decreases >50% during inspiration). Mitral Valve Mitral valve structure is normal. There is trace regurgitation. There is no significant stenosis noted. Tricuspid Valve Tricuspid valve structure is normal. There is no significant regurgitation. There is no significant tricuspid valve stenosis. Aortic Valve The valve has been surgically replaced. There is a 34 mm TAVR bioprosthetic valve. The prosthetic valve appears well-seated and appears to be functioning normally. Valve leaflet motion is normal. There is trace paravalvular regurgitation. There is no significant stenosis. Pulmonic Valve Visualized portions of the pulmonic valve appear normal. No significant pulmonic valve regurgitation. No significant pulmonary valve stenosis noted. Ascending Aorta The ascending aorta is (3.8 cm). Pericardium Pericardium appears normal. There is no pericardial effusion. Study Details Overall the study quality was technically difficult. Cardiac history: prosthetic valve. Definity contrast was given to enhance imaging. Study was difficult due to: poor endocardial visualization, patient body habitus and poor acoustic windows. Wall Scoring Baseline Score Index: 1.00 The left ventricular wall motion is normal. us Hal Dial MD CV ECHO PROCEDURES Final Resul t * CARDIAC DENTAL OFFICE MANAGER (MCOT) (08/31/2025 8:54 AM EDT) Anatomical Region Laterality Modality Cardiac Diagnost ic Impressions 09/27/2025 8:01 AM EST Patient had a min HR of 41 bpm, max HR of 174 bpm, and avg HR of 80 bpm. Predominant underlying rhythm was Sinus Rhythm. Bundle Branch Block/IVCD was present. 1 run of Ventricular Tachycardia occurred lasting 8 beats with a max rate of 154 bpm (avg 134 bpm). 3360 Supraventricular Tachycardia runs occurred, the run with the fastest interval lasting 8 beats with a max rate of 174 bpm, the longest lasting 18.5 secs with an avg rate of 102 bpm. Isolated SVEs were frequent (7.7%, [id number]), SVE Couplets were occasional (1.2%, 9952), and SVE Triplets were occasional (1.9%, 48856). Isolated VEs were rare (<1.0%), VE Couplets were rare (<1.0%), and no VE Triplets were present. Ventricular Bigeminy was present. Narrative 09/27/2025 8:01 AM EST [facility] DIAGNOSTIC TESTING DEPARTMENT [address] [place] [address], [place] [address], [place] [address] TEL: FAX: TYPE OF TEST: 14 day ROCT Zio Patch monitor. DATES OF MONITORIN08/30/2025- 09/13/2025 REQUESTING PHYSICIAN: Hal Dial MD PRIMARY CARE PROVIDER: Derrick Patel MD INDICATION: Nonrheumatic aortic valve stenosis; Dyspnea, unspecified type; SOB (shortness of breath) Result [facility] Hal Dial MD CV CARDIAC SERVICES PROCEDURES Final Result * Annual BMP Blood Test (06/07/2024) Annual BMP Blood Test abstracted Result [facility] Historical Provider HEALTH MAINTENANCE Final Result * (ABNORMAL) Lipid panel (06/01/2024) LDL/HDL Ratio 3 0 - 4 Triglycerides 254(A) 0 - 150 mg/dL Cholesterol 145 0 - 200 mg/dL HDL 43 >=40 mg/dL LDL Cholesterol 52 0 - 100 mg/dL Blood Venous blood specimen / Unknown Result [facility] Historical Provider LAB BLOOD ORDERABLES Madelyn l Result from Last 3 Months or Most Recently Relevant to Health Maintenance Insurance MEDICARE [facility] Member Subscriber Plan / Payer (Ef fective 2024-Present) Name:LAWRENCE MELTON Relation to Subscriber:Self Name:Lawrence Melton Payer ID:[id number] Group ID:[id number] Type:Not on file Address: [address] [place] [address] Care Teams Residential Mortgage Underwriter Relationship Specialty Start Date End Date Derrick Patel MD [facility] [address] [place] [phone] [facility] - General 01/10/23
--- OUTSIDE RECORDS SUMMARY | 2025-11-01 17:55 | XMS_ITS | Encounter Summary ---
Author Organization [facility] Address [address] [place] [address] Care Team Providers Care Portfolio Consultant Name Role Phone Derrick Patel MD Primary Care Provider [phone]- [phone] Encounter Details Date Type Department Care Team (Late st Contact Info) Description 10/28/2025 Results Follow-Up [facility] [address] [facility] [address] [place] [address] Mary Davalos NP [address] [place] [address] [address] [place] [address] Social History Tobacco Use Types [...] Description 11/08/2025 3:40 PM EST Office Visit [facility] [address] [facility] [address] [place] [address] Miguel Sanchez NP [address] [place] [address] Dr [address] [place] [address] documented as of this encounter Visit Diagnoses Not on filedocumented in this encounter Care Teams Portfolio Consultant Relationship Specialty Start Date End Date Derrick Patel MD [address] [place] [address] PCP - General 01/10/23 documented as of this encounter
== END 2025-11-01 14:04 | disposition home or self-care (01) ==
LOC: HO.HMGCX 14:03
PROVIDERS: Physician Assistant; Absent Provider Nurse Practitioner Acute Care; PCP Family Medicine; Visit Provider Internal Medicine Nephrology
DX: R05.1 Acute cough (principal)
CPT/HCPCS: 36415; 71046; 80048; 85025; 87637; 99212

== ENCOUNTER 2025-11-01 14:17 | Outpatient (AMB) | payer MEDICARE, BC, SELFPAY ==
[2022-01-22 07:26] VITALS: BP 118/64; BP 152/70; BP 180/92; BMI 31.6
[2025-11-01 14:34] VITALS: BP 154/76; PULSE 98; TEMP 36.6; O2SAT 97; BMI 31.1
--- NOTE | 2025-11-01 14:34 | AM.OFFWIN_ITS ---
Intake Vital Signs 11/01/25 14:34 Height 5 ft 10 in Weight 217 lb BMI 31.1 BP 154/76 H Blood Pressure Location Lt brachial Position Sitting Pulse 98 Pulse Source Pulse Oximeter Temp 97.8 F Temp Source Oral Pulse Oximetry (%) 97 Oxygen Delivery Method Room Air Intake Visit Reasons: EP Cough Intake Note: pt presents with chest congestion and productive cough, sinus congestion, fevers, body weakness [id number] Patient Tobacco Use Status: Former Tobacco user Allergies amlodipine Allergy (Intermediate, Verified 11/01/25 14:40) tinnitis chlorthalidone Adverse Reaction (Intermediate, Verified 11/01/25 14:40) dehydration erythromycin base Adverse Reaction (Intermediate, Verified 11/01/25 14:40) Gastrointestinal Upset lisinopril Adverse Reaction (Intermediate, Verified 11/01/25 14:40) Cough Do you need a note to return to daycare/school/sports/work: No HPI HPI Comments History of Present Illness Details He presents to office with flu symptoms He has exposure at home also has PNA and is hospitalized Pt states he is on Day 10 of symptoms without relief He started with fever, chills, fatigue, congestion, scratchy throat Fevers resolved; 8pm sometimes higher but has been taking tylenol Cough present and produces phlegm; yellow He feels SOB No lingering congestion or ST He used Robitussin DM without relief He said he had nausea without vomiting and only 1 episode of diarrhea + decreased appetite and energy [facility] Medical History (Updated 11/01/25 @ 15:04 by Erlinda Cary PA-C) On beta jay at home Carotid stenosis CAD (coronary artery disease) CKD (chronic kidney disease), stage III KATI treated with BiPAP COVID-19 vaccine administered Arthritis Diabetes GERD (gastroesophageal reflux disease) Depression Sleep apnea Hx of aortic valve stenosis Elevated cholesterol HTN (hypertension) Surgical History Hx of five vessel coronary artery bypass History of bilateral cataract extraction Status post cardiac revascularization with bypass aortocoronary anastomosis of five coronary vessels History of esophagogastroduodenoscopy (EGD) H/O colonoscopy History of carpal tunnel release Social History Household Members Other:: lives with Are you a primary care management coordinator to a significant other at home: No Do you presently have visiting nurse or other home services: No Alcohol intake: current Patient Tobacco Use Status: Former Tobacco user Tobacco use type: Cigar Current occupational status: retired Current occupation: [employer] Systems Const Reports chills, Reports fatigue and Reports fever(s) ENT Denies dizziness, Denies otalgia, Reports nasal congestion and Denies sore throat Card Denies chest pain, Denies syncope and Reports dyspnea Resp Reports chest congestion, Reports cough and Reports dyspnea GI Denies abdominal pain, Reports nausea and Denies vomiting Musc Reports myalgias Neuro Denies dizziness and Denies syncope Endo Reports fatigue Physical Exam Exam Exam: General: Non-toxic, NAD. Speaking full sentences. Skin: Warm dry throughout Eye: EOMI HENT: Airway patent. Uvula midline. No pharyngeal erythema or edema. No [employer] TE[employer]ER. Respiratory: CTA bilaterally. No wheezes, rales or rhonchi Cardiac: RRR. MSK: Full ROM extremities. Neurology: Alert. No aphasia or facial droop. Gait without abnormality Psych: Good mood and affect Vital Signs: Last Vital Signs Temp 97.8 F 11/01/25 14:34 Pulse 98 11/01/25 14:34 BP 154/76 H 11/01/25 14:34 Pulse Ox 97 11/01/25 14:34 Oxygen Delivery Method Room Air 11/01/25 14:34 BMI result Body Mass Index 31.1 Assessment & Plan Assessment & Plan (1) Cough: Code(s): R05.9 - Cough, unspecified Qualifiers: Cough type: acute Qualified Code(s): R05.1 - Acute cough Plan: Patient seen and evaluated. Chest xray: Patient gave verbal understanding and had no additional questions or concerns at time of discharge All questions answered Orders: Orders XR chest 2V 11/01/25 R05.9 - Cough, unspecified Medications: New doxycycline hyclate 100 mg PO BID 20 caps 0RF Coding Level of Care Code Est Pt Level 3 (82388) Diagnoses Acute cough R05.1 Cough type: acute
== END 2025-11-01 15:30 | disposition home or self-care (01) ==
PROVIDERS: PCP Family Medicine; Visit Provider Physician Assistant
DX: R05.1 Acute cough (principal)

== ENCOUNTER → 2025-11-01 15:05 | Outpatient (BNV) | payer MEDICARE, BC, SELFPAY ==
[2022-01-22 07:26] VITALS: BP 118/64; BP 152/70; BP 180/92; BMI 31.6
== END ==
PROVIDERS: Absent Provider Nurse Practitioner Acute Care; PCP Family Medicine; Visit Provider Radiology Diagnostic Radiology
DX: R05.9 Cough, unspecified (principal)
CPT/HCPCS: 71046